=== PATIENT | female | born 1945 | race African-American/Black ===

== ENCOUNTER 2018-02-12 16:14 | Emergency (ER) | payer OTHER ==
[2018-02-12 16:25] VITALS: BP 152/57
[2018-02-12] MEDS ORDERED: TETRACAINE HCL 0.5% OPH SOLN 2 ML OU ONE (17:26)
--- NOTE | 2018-02-12 17:33 | ER Document Report ---
HPI - HPI Patient complains to provider of: Right eye redness Onset: Other - 2 days Onset/Duration: Gradual Quality of pain: Achy Pain Level: 4 Context: Patient presents complaining of right eye pain and swelling with redness. Patient denies any injury to her eye. Patient denies any change in her vision. Patient states that she got glasses 2 years ago and that she has never been able to see very well using those glasses. Patient states that she occasionally will have some matting to the right eye. Patient denies any use of contact lenses. Associated Symptoms: Other - Right eye redness swelling, pain Exacerbated by: Denies Relieved by: Denies Similar symptoms previously: No Recently seen / treated by doctor: No - ROS ROS below otherwise negative: Yes Systems Reviewed and Negative: Yes All other systems reviewed and negative - CONSTITUTIONAL Constitutional: DENIES: Fever - EENT EENT: REPORTS: Eye problems - GASTROINTESTINAL Gastrointestinal: DENIES: Nausea, Patient vomiting - REPRODUCTIVE Reproductive: DENIES: : - DERM Skin Color: Normal Skin Problems: None Past Medical History - General Information source: Patient - Social History Smoking Status: Never Smoker Chew tobacco use (# tins/day): No Frequency of alcohol use: None Drug Abuse: None Occupation: None Lives with: Alone Family History: Reviewed & Not Pertinent Patient has suicidal ideation: No Patient has homicidal ideation: No - Past Medical History Cardiac Medical History: Reports: Hx Coronary Artery Disease Denies: Hx Heart Attack, Hx Hypercholesterolemia, Hx Hypertension Endocrine Medical History: Reports: Hx Diabetes Mellitus Type 2 Renal/ Medical History: Denies: Hx Peritoneal Dialysis Malignancy Medical History: Reports: Hx Breast Cancer Past Surgical History: Reports: Hx Coronary Stent, Hx Gynecologic Surgery - Unsuccessful fallopian tuboplasty, Hx Mastectomy - Right mastectomy with axillary node dissection 29 years ago. - Immunizations Hx Diphtheria, Pertussis, Tetanus Vaccination: No Vertical Provider Document - CONSTITUTIONAL Agree With Documented VS: Yes Exam Limitations: No Limitations General Appearance: WD/WN, No Apparent Distress - INFECTION CONTROL TRAVEL OUTSIDE OF THE [place] IN LAST 30 DAYS: No - HEENT HEENT: Atraumatic, Normocephalic Notes: sclera of right eye injected, EOMI, PERLL - NECK Neck: Normal Inspection - RESPIRATORY Respiratory: No Respiratory Distress - MUSCULOSKELETAL/EXTREMETIES Musculoskeletal/Extremeties: MAEW - NEURO Level of Consciousness: Awake, Alert, Appropriate Motor/Sensory: No Motor Deficit - DERM Integumentary: Warm, Dry, No Rash Course - Re-evaluation Re-evalutation: 02/12/18 18:10 Patient states that she has never been able to see very well with her glasses from the day that she got her glasses 2 years ago. Patient encouraged to follow -up with guide visitor on Thursday for repeat eye exam as well as to follow-up that she will last seen in her corneal abrasion. Patient encouraged to return for any new or worsening symptoms over the weekend. - Vital Signs Vital signs: Temp Pulse Resp BP Pulse Ox 99.1 F 82 16 152/57 H 96 02/12/18 16:23 02/12/18 16:23 02/12/18 16:23 02/12/18 16:23 02/12/18 16:23 Procedures - Eye Procedure Right Fluorescein applied: Right Notes: 02/12/18 18:10 Patient with corneal abrasion to right eye with chalazion to right lower eye lid area. No foreign body, dendrite or corneal ulcer. Ocular pressure in the left eye 22, pressure to the right eye 18 with a 95% confidence interval Eyes picture: 1 - Corneal abrasion to right eye Discharge - Discharge Clinical Impression: Chalazion left lower eyelid Cornea abrasion Qualifiers: Encounter type: initial encounter Laterality: right Qualified Code(s): S05.01XA - Injury of conjunctiva and corneal abrasion without foreign body, right eye, initial encounter Condition: Stable Disposition: HOME, SELF-CARE Instructions: Chalazion ([facility]), Corneal Abrasion ([facility]), Eyedrop Use ([facility]) Additional Instructions: Return immediately for any new or worsening symptoms Followup with your primary care provider, call tomorrow to make a followup appointment Follow-up with guide visitor, call Thursday for an appointment Prescriptions: Polymyxin B Sulfate/Tmp [Polytrim Oph Soln 10 ml] 1 drop RT_EYE ASDIR #1 bottle Referrals: [facility] [Provider Group] - Follow up as needed OFFICE [facility] [Provider Group] - 02/15/18
== END 2018-02-12 18:23 | disposition home or self-care (01) ==
LOC: ER 16:14
DX: S05.01XA Injury of conjunctiva and corneal abrasion without foreign body, right eye, initial encounter (principal); H00.15 Chalazion left lower eyelid; X58.XXXA Exposure to other specified factors, initial encounter; I25.10 Atherosclerotic heart disease of native coronary artery without angina pectoris; E11.9 Type 2 diabetes mellitus without complications; Z85.3 Personal history of malignant neoplasm of breast
CPT/HCPCS: 99283

== ENCOUNTER 2018-06-21 14:31 | Emergency (ER) | payer OTHER ==
[2018-06-21] MEDS ORDERED: ACETAMINOPHEN 325 MG TABLET PO ONE (15:17)
--- NOTE | 2018-06-21 15:18 | RADIOLOGY REPORT (SQ) ---
EXAM DESCRIPTION: WRIST RIGHT 3 VIEWS; HAND RIGHT 3 VIEWS COMPLETED DATE/TIME: 06/21/2018 3:08 pm REASON FOR STUDY: pain injury COMPARISON: None. FINDINGS: Three views right wrist: NO ACUTE CARPAL FRACTURE OR MALALIGNMENT. Radial sided DJD, tri scaphe arthritis. Minimal ulnar plan as scratch at minimal ulnar minus variance with sclerosis and c ystic changes in the ulnar aspect of the lunate. 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 Three views right hand: Osteopenic. Spiral FRACTURES OF THE 4TH AND 5TH METACARPAL SHAFTS. No britt r intra-articular extension. Slight dorsal displacement at each of the fracture sites. Regional sof t tissue swelling. TECHNICAL DOCUMENTATION: JOB ID: [id number] Reading location - IP/workstation name: [email or web address]
--- NOTE | 2018-06-21 15:18 | RADIOLOGY REPORT (SQ) ---
EXAM DESCRIPTION: WRIST RIGHT 3 VIEWS; HAND RIGHT 3 VIEWS COMPLETED DATE/TIME: 06/21/2018 3:08 pm REASON FOR STUDY: pain injury COMPARISON: None. FINDINGS: Three views right wrist: NO ACUTE CARPAL FRACTURE OR MALALIGNMENT. Radial sided DJD, tri scaphe arthritis. Minimal ulnar plan as scratch at minimal ulnar minus variance with sclerosis and c ystic changes in the ulnar aspect of the lunate. 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 Three views right hand: Osteopenic. Spiral FRACTURES OF THE 4TH AND 5TH METACARPAL SHAFTS. No britt r intra-articular extension. Slight dorsal displacement at each of the fracture sites. Regional sof t tissue swelling. TECHNICAL DOCUMENTATION: JOB ID: [id number] Reading location - IP/workstation name: [email or web address]
--- NOTE | 2018-06-21 16:14 | ER Document Report ---
ED Hand/Wrist Injury - General Chief Complaint: Hand Injury Stated Complaint: FELL/RIGHT ARM AND HAND PAIN Time Seen by Provider: 06/21/18 14:50 Mode of Arrival: Ambulatory Information source: Patient Notes: 72-year-old female presents to ED for complaint of right hand pain. She states it has become very swollen and painful. She states she fell out of the bed on Thursday. She states that her hand is continued to swell and is now becoming more painful. Patient states she was able to come to the doctor told her family told her she had to come to the doctor. This is very difficult to move her wrist and fingers now. TRAVEL OUTSIDE OF THE [place] IN LAST 30 DAYS: No - HPI Injury to: Hand - Right, Wrist Onset: Other - Thursday Where: Home, Indoors Timing: Worse Quality of pain: Sharp, Throbbing Severity: Severe Pain Level: 5 Context: Fall - Related Data Allergies/Adverse Reactions: No Known Allergies Allergy (Verified 02/12/18 16:16) Past Medical History - General Information source: Patient - Social History Smoking Status: Never Smoker Cigarette use (# per day): No Chew tobacco use (# tins/day): No Smoking Education Provided: No Frequency of alcohol use: None Drug Abuse: None Lives with: Friend Family History: Reviewed & Not Pertinent Patient has suicidal ideation: No Patient has homicidal ideation: No - Past Medical History Cardiac Medical History: Reports: Hx Coronary Artery Disease, Hx Hypertension Pulmonary Medical History: Reports: None EENT Medical History: Reports: None Neurological Medical History: Reports: None Endocrine Medical History: Reports: Hx Diabetes Mellitus Type 2 Renal/ Medical History: Reports: None Malignancy Medical History: Reports: Hx Breast Cancer GI Medical History: Reports: None Musculoskeletal Medical History: Reports None Skin Medical History: Reports None Psychiatric Medical History: Reports: None Traumatic Medical History: Reports: None Infectious Medical History: Reports: None Past Surgical History: Reports: Hx Coronary Stent, Hx Gynecologic Surgery - Unsuccessful fallopian tuboplasty, Hx Mastectomy - RIGHT,RESTRICTED - Immunizations Hx Diphtheria, Pertussis, Tetanus Vaccination: No Review of Systems - Review of Systems Constitutional: No symptoms reported EENT: No symptoms reported Cardiovascular: No symptoms reported Respiratory: No symptoms reported Gastrointestinal: No symptoms reported Genitourinary: No symptoms reported Female Genitourinary: No symptoms reported Musculoskeletal: Other - Left hand pain and swelling Skin: No symptoms reported Hematologic/Lymphatic: No symptoms reported Neurological/Psychological: No symptoms reported -: Yes All other systems reviewed and negative Physical Exam - Vital signs Vitals: Temp Pulse Resp BP Pulse Ox 98.5 F 75 18 161/83 H 96 06/21/18 14:39 06/21/18 14:39 06/21/18 14:39 06/21/18 14:39 06/21/18 14:39 Interpretation: Normal - General General appearance: Appears well, Alert - HEENT Head: Normocephalic, Atraumatic Eyes: Normal Pupils: PERRL - Respiratory Respiratory status: No respiratory distress Chest status: Nontender Breath sounds: Normal Chest palpation: Normal - Cardiovascular Rhythm: Regular Heart sounds: Normal auscultation Murmur: No - Abdominal Inspection: Normal Distension: No distension Bowel sounds: Normal Tenderness: Nontender Organomegaly: No organomegaly - Back Back: Normal, Nontender - Extremities General upper extremity: Normal color, Normal ROM, Normal temperature General lower extremity: Normal inspection, Nontender, Normal color, Normal ROM , Normal temperature, Normal weight bearing. 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 Patient does have a fracture to the fourth and fifth metacarpal. Patient was placed in a splint discharged home to follow-up with orthopedics in the morning. Patient was given a prescription for narcotics. She states she would not take them unless she absolutely has to. - Vital Signs Vital signs: Temp Pulse Resp BP Pulse Ox 98.4 F 82 18 157/80 H 99 06/21/18 16:41 06/21/18 16:41 06/21/18 16:41 06/21/18 16:41 06/21/18 16:41 - Diagnostic Test Radiology reviewed: Image reviewed, Reports reviewed Procedures - Immobilization Left Hand Time completed: 16:30 Pre-Proc Neuro Vasc Exam: Normal Immobilizer type: Volar splint Performed by: PCT Post-Proc Neuro Vasc Exam: Normal Alignment checked and good: Yes Discharge - Discharge Clinical Impression: Fall Qualifiers: Encounter type: initial encounter Qualified Code(s): W19.XXXA - Unspecified fall, initial encounter Fracture of fourth metacarpal bone of right hand Qualifiers: Encounter type: initial encounter Fracture type: closed Metacarpal location: shaft Fracture alignment: displaced Qualified Code(s): S62.324A - Displaced fracture of shaft of fourth metacarpal bone, right hand, initial encounter for closed fracture Fracture of fifth metacarpal bone of right hand Qualifiers: Encounter type: initial encounter Fracture type: closed Metacarpal location: shaft Fracture alignment: displaced Qualified Code(s): S62.326A - Displaced fracture of shaft of fifth metacarpal bone, right hand, initial encounter for closed fracture Condition: Stable Disposition: HOME, SELF-CARE Instructions: Family Physicians / Practices Additional Instructions: Fractured Metacarpal You have broken a metacarpal bone in the hand. The fracture is usually caused by hitting the hand against a hard surface, but can also be caused by jamming a finger. At first the injury should be rested, elevated, and ice packed. The usual treatment is splinting for four to six weeks. For some patients, a cast is preferable. The physician will advise you. It's important to avoid any twisting or jamming of the fingers while the fracture is healing. Force on the fingers can make the fracture move. Usually , one or two fingers are included in the splint or cast. Sometimes fingers are taped instead -- in this case, extra caution to prevent a twisting of the fingers is necessary. Call the doctor or come back if swelling or pain become severe, if numbness develops, or if you suspect you may have disturbed the fracture. Splint Pending Casting Your injury can't be casted until the swelling has subsided. Therefore, a temporary splint has been placed to protect the injury. Full use of an injured area is not possible in a splint. You should follow the doctor's instructions concerning rest, ice, and elevation of the injury. Never do anything which causes pain under the splint. Keep the splint on ALL THE TIME until you return for casting. If there is unexpected severe pain, or numbness, discoloration, or swelling beyond the splint, you should return at once. ICE & ELEVATION: Apply ice packs frequently against the painful area. Many different schedules are recommended, such as "20 minutes on, 20 minutes off" or "one hour ice, two hours rest." If you need to work, you may need to go longer between ice treatments. You should plan to have the area ice packed AT LEAST one- fourth of the time. The ice should be applied over the wrap, tape, or splint, or over a layer of cloth -- not directly against the skin. Some ice bags have a built-in cloth and can be put directly on the skin. Your injured part should be elevated as much as possible over the next 48 hours. Try to keep the injury above the level of the heart. Avoid use of the injured area. Elevation and rest will decrease the swelling. USE OF EYLQ-JUK-LHLAFOV IBUPROFEN: Ibuprofen (Advil, Nuprin, Medipren, Motrin IB) is a medication for fever and pain control. In addition, it has anti- inflammatory effects which may be beneficial, especially in the treatment of injuries. It's best to take ibuprofen with food. Persons with ulcer disease or allergy to aspirin should notify their physician of this before taking ibuprofen. Ibuprofen can be given every four to six hours, for a total of four doses daily. Age Pain or fever dose Antiinflammatory dose 6-8 yr 200 mg (1 tab) 200 mg (1 tab) 9-11 yr 200 mg (1 tab) 200-400 mg (1-2 tab) 11-14 yr 200-400 mg (1-2 tab) 400 mg (2 tab) 15-adult 400 mg (2 tab) 600 mg (3 tab) ORAL NARCOTIC MEDICATION: You have been given a prescription for pain control. This medication is a narcotic. It's best taken with food, as nausea can result if taken on an empty stomach. Don't operate machinery or drive within six hours of taking this medication. Do not combine this medicine with alcohol, or with any medication which can cause sedation (such as cold tablets or sleeping pills) unless you get permission from the physician. Narcotics tend to cause constipation. If possible, drink plenty of fluids and eat a diet high in fiber and fruits. Please be aware that prescription narcotics also have the potential for abuse. People become addicted to these medications because of the general sense of wellbeing that they induce. This feeling along with a significant reduction in tension, anxiety, and aggression provides a stimulating seductive quality to these drugs. Once your pain is under control, we encourage you to discard your unused narcotics. FOLLOW-UP CARE: If you have been referred to a physician for follow-up care, call the physician s office for an appointment as you were instructed or within the next two days. If you experience worsening or a significant change in your symptoms, notify the physician immediately or return to the Emergency Department at any time for re-evaluation. Prescriptions: Hydrocodone/Acetaminophen [[place] 5-325 mg Tablet] 1 tab PO Q8HP PRN #14 tablet PRN Reason: Forms: Elevated Blood Pressure Referrals: TYESHA PLASENCIA [NO LOCAL MD] - Follow up as needed JOSE DAVID CRAIG DO [ACTIVE STAFF] - Follow up as needed
[2018-06-21 16:43] VITALS: BP 157/80
== END 2018-06-21 16:41 | disposition home or self-care (01) ==
LOC: ER 14:31
PROC: 2W3DX1Z Immobilization of Left Lower Arm using Splint (ICD-10-PCS; principal; 2018-06-21)
DX: S62.324A Displaced fracture of shaft of fourth metacarpal bone, right hand, initial encounter for closed fracture (principal); S62.326A Displaced fracture of shaft of fifth metacarpal bone, right hand, initial encounter for closed fracture; M79.601 Pain in right arm; M79.641 Pain in right hand; M79.89 Other specified soft tissue disorders; W06.XXXA Fall from bed, initial encounter; I25.10 Atherosclerotic heart disease of native coronary artery without angina pectoris; I10 Essential (primary) hypertension; E11.9 Type 2 diabetes mellitus without complications
CPT/HCPCS: 99283; 73130; 73110; 29125; A9270

== ENCOUNTER 2018-07-29 08:39 | Day surgery (SDC) | payer OTHER ==
[~2018-07-29 08:39] MED LIST: BESIFLOXACIN HCL 0.6% OPH SUSP 5 ML BOTTLE OD PRN; CYCLOPENTOLATE 0.2%/PHENYLEPHRINE 1% OPH SOLN 2 ML OD PRN; KETOROLAC TROMETHAMINE 0.45% 4 DROP/0.4 ML DROPERETTE OD PRN; TETRACAINE HCL 0.5% OPH SOLN 4 ML OD PRN; TROPICAMIDE 1% OPH SOLN 3 ML OD PRN
[2018-07-29] MEDS ORDERED: LIDOCAINE 1%/PHENYLEPHRINE 1.5% 1 ML VIAL ONE (09:13)
[2018-07-29] MEDS ORDERED: EPINEPHRINE INJ/PF 1 MG/1 ML AMPULE ONE (09:13)
[2018-07-29] MEDS ORDERED: CHONDR SU A NA/HYALUR INTRAOC KIT (SURGICARE) ONE (09:13)
[2018-07-29] MEDS: TETRACAINE HCL 0.5% OPH SOLN 4 ML OD PRN ×3 (09:52→10:59)
[2018-07-29] MEDS: CYCLOPENTOLATE 0.2%/PHENYLEPHRINE 1% OPH SOLN 2 ML OD PRN ×3 (09:52→10:14)
[2018-07-29] MEDS: BESIFLOXACIN HCL 0.6% OPH SUSP 5 ML BOTTLE OD PRN ×2 (09:52→10:05)
[2018-07-29] MEDS: TROPICAMIDE 1% OPH SOLN 3 ML OD PRN ×3 (09:52→10:14)
[2018-07-29] MEDS ORDERED: MIDAZOLAM 2 MG/2 ML INJ ONE ×2 (10:06→10:54)
[2018-07-29] MEDS ORDERED: FENTANYL CITRATE INJ/PF 100 MCG/2 ML AMPUL ONE (10:07)
[2018-07-29] MEDS ORDERED: LIDOCAINE 1%/PHENYLEPHRINE 1.5% 1 ML VIAL IO ONE (10:34)
[2018-07-29] MEDS ORDERED: TRYPAN BLUE 0.06 % OPH SOLN 0.5 ML DISP.SYRIN ONE (10:39)
[2018-07-29] MEDS ORDERED: CHONDR SU A NA/HYALUR SOD 0.5 ML DISP.SYRIN ONE ×3 (10:43→11:07)
[2018-07-29] MEDS ORDERED: TRYPAN BLUE 0.06 % OPH SOLN 0.5 ML DISP.SYRIN IO ONE (11:01)
[2018-07-29] MEDS ORDERED: ACETYLCHOLINE CHLORIDE 20 MG/2 ML KIT IO ONE (11:25)
[2018-07-29] MEDS ORDERED: ACETYLCHOLINE CHLORIDE 20 MG/2 ML KIT ONE (11:57)
--- NOTE | 2018-07-29 15:51 | [facility] OPERATIVE REPORT E ---
[facility] Operative Report NAME: CHARLEE CHING AGE: 73Y DATE OF SURGERY: 07/29/2018 ROOM: PREOPERATIVE DIAGNOSES: 1. CATARACT RIGHT EYE 2. PUPIL MIOSIS, RIGHT EYE. POSTOPERATIVE DIAGNOSES: 1. CATARACT RIGHT EYE. 2. PUPIL MIOSIS, RIGHT EYE. OPERATION: Complex cataract extraction with the use of a Trypan blue dye and Malyugin ring due to pupillary miosis and insertion of a Sulcus IOL. SURGEON: DMITRIY GARCIA M.D. ANESTHESIA: TOPICAL. COMPLICATIONS: Anterior capsule extension. ESTIMATED BLOOD LOSS: None. PROCEDURE: After obtaining appropriate consent, the patient right eye was prepped and draped in sterile fashion as well as the surgeon in a sterile manner, and the cataract surgery was started. First, the paracentesis blade was used to make a small side-port incision. Viscoelastic was used to inflate the anterior chamber. Next a 2.4 mm incision was made using a 2.4 mm keratome. At this point, the pupil was less than 4.5 mm and was very miotic. In order to complete the capsulorhexis, a Malyugin ring was inserted and found to be in excellent position to help stabilize the pupil. Following this, a continuous capsulorhexis was made using a cystitome and Utrata forceps. Following this, hydrodissection was carried out to make the lens fully loose and mobile, and it was rotated 90 degrees. Following this, a divide and conquer technique was used to phacoemulsify the lens with a CDE of approximately 16.27. The remaining cortex was removed with irrigation/aspiration. Provisc was instilled into the capsular bag to inflate the bag. The remainingviscoelastic material was removed with i rrigation/aspiration. Prior to making the capsulorhexis Malyugin ring was inserted due to poor pupillary dilation. The anterior capsule was then stained with Trypan blue dye due to a mature cataract and no visualization of the anterior capsule. At one point during rhexis the anterior rhexis had extended peripherally for approximately 3 clock hours. I was unable to rescue this, therefore a can director of financial reporting technique was used for approximately 3 clock hours nasally. Following this, the lens was divided in a normal technique. There was no finding of a posterior capsule tear at any point. There was a good anterior capsule rim. Therefore a sulcus lens was brought to the field and a 27.0 diopter MA60AC lens was injected once the incision was enlarged into the sulcus on anterior capsule and was found to be well-centered. Following this, the miochol was used and inserted into anterior chamber to shrink the iris and the Malyugin ring was removed and a simple interrupted 10-0 nylon suture was used to close the clear corneal incision temporarily. The eye was found to be water tight. A drop of Besivance and a drop of Cosopt was instilled into the eye and a clear shield is placed over the eye and the patient returned to the postoperative recovery in stable condition. DICTATING PHYSICIAN: DMITRIY GARCIA M.D. [id number] PHY#: [id number] ID: [id number] JOB#: [id number] ACCT: [id number] cc:DMITRIY GARCIA M.D. > MTDD
--- NOTE | 2018-07-29 15:56 | [facility] DISCHARGE SUMMARY E ---
[facility] Discharge Summary NAME: CHARLEE CHING AGE: 73Y ADMITTED: 07/29/2018 DISCHARGED: 07/29/2018 DIAGNOSES: 1. Mature Cataract, right eye. 2. Pupil miosis of the right eye, approximately 4-mm. SUMMARY: This is a 73-year-old female who underwent cataract extraction, complex, of the right eye with use of Trypan blue dye and a Malyugin ring due to poor pupillary dilation. The patient did have anterior capsule extension of the rhexis, therefore a Sulcus lens was placed. At no point was there vitreous in the anterior chamber and the posterior capsule was still intact. Patient underwent surgery because they were unable to read road signs and difficulty with words on the television. DISCHARGE INSTRUCTIONS: They should be on a regular diet, no bending at the waist, and no heavy lifting. The patient should use Besivance, Ilevro, and Durezol at 3 p.m. and 8 p.m. I will see them for same day postoperative. Keep the clear Rigid shield on until I see them. DICTATING PHYSICIAN: DMITRIY GARCIA M.D. [id number] PHY#: [id number] ID: [id number] JOB#: [id number] ACCT: [id number] cc:DMITRIY GARCIA M.D. > MTDD
== END 2018-07-29 12:45 | disposition home or self-care (01) ==
LOC: SC 08:39
PROVIDERS: ATTEND Internal Medicine
DX: H25.89 Other age-related cataract (principal); H57.03 Miosis; H40.033 Anatomical narrow angle, bilateral; E11.9 Type 2 diabetes mellitus without complications; I25.10 Atherosclerotic heart disease of native coronary artery without angina pectoris; Z79.4 Long term (current) use of insulin; Z79.82 Long term (current) use of aspirin; Z79.84 Long term (current) use of oral hypoglycemic drugs; Z85.3 Personal history of malignant neoplasm of breast
CPT/HCPCS: 66982; 82962; V2632; J3490 ×5; J2250; A9270; J0171; J3010; J2370; 142

== ENCOUNTER 2018-08-17 09:56 | Day surgery (SDC) | payer OTHER ==
[~2018-08-17 09:56] MED LIST changes: -BESIFLOXACIN HCL 0.6% OPH SUSP 5 ML BOTTLE OD PRN; -CYCLOPENTOLATE 0.2%/PHENYLEPHRINE 1% OPH SOLN 2 ML OD PRN; -KETOROLAC TROMETHAMINE 0.45% 4 DROP/0.4 ML DROPERETTE OD PRN; +KETOROLAC TROMETHAMINE 0.45% 4 DROP/0.4 ML DROPERETTE OS PRN; +MIDAZOLAM 2 MG/2 ML INJ ONE; -TETRACAINE HCL 0.5% OPH SOLN 4 ML OD PRN; -TROPICAMIDE 1% OPH SOLN 3 ML OD PRN
[2018-08-17] MEDS: TROPICAMIDE 1% OPH SOLN 3 ML OS PRN ×3 (10:38→10:58)
[2018-08-17] MEDS: BESIFLOXACIN HCL 0.6% OPH SUSP 5 ML BOTTLE OS PRN ×4 (10:38→12:05)
[2018-08-17] MEDS: CYCLOPENTOLATE 0.2%/PHENYLEPHRINE 1% OPH SOLN 2 ML OS PRN ×3 (10:38→10:58)
[2018-08-17] MEDS: TETRACAINE HCL 0.5% OPH SOLN 4 ML OS PRN ×4 (10:39→11:38)
[2018-08-17] MEDS ORDERED: MIDAZOLAM 2 MG/2 ML INJ ONE (10:58)
[2018-08-17] MEDS ORDERED: FENTANYL CITRATE INJ/PF 100 MCG/2 ML AMPUL ONE (10:59)
[2018-08-17] MEDS ORDERED: TRYPAN BLUE 0.06 % OPH SOLN 0.5 ML DISP.SYRIN ONE (11:02)
[2018-08-17] MEDS: EPINEPHRINE INJ/PF 1 MG/1 ML AMPULE ONE ×2 (11:48)
[2018-08-17] MEDS: CHONDR SU A NA/HYALUR INTRAOC KIT (SURGICARE) ONE ×2 (11:48)
[2018-08-17] MEDS: LIDOCAINE 1%/PHENYLEPHRINE 1.5% 1 ML VIAL ONE ×2 (11:48)
--- NOTE | 2018-08-17 14:31 | [facility] OPERATIVE REPORT E ---
[facility] Operative Report NAME: CHARLEE CHING AGE: 73Y DATE OF SURGERY: 08/17/2018 ROOM: PREOPERATIVE DIAGNOSIS: OTHER AGE-RELATED CATARACT, LEFT EYE. POSTOPERATIVE DIAGNOSIS: OTHER AGE-RELATED CATARACT, LEFT EYE. OPERATION: Complex cataract extraction with use of Trypan Blue dye due to poor visualization of the anterior capsule. SURGEON: DMITRIY GARCIA M.D. ANESTHESIA: Topical. PROCEDURE: After obtaining appropriate consent, the patient's left eye was prepped and draped in sterile fashion as well as the surgeon in a sterile manner and cataract surgery was started. First a paracentesis blade was used to make a side-port incision. Viscoelastic was used to inflate the anterior chamber. Next a 2.4 mm incision was made with a 2.4 mm blade, clear corneal temporally. A continuous capsulorrhexis was made using a cystotome and Utrata forceps. Following this hydrodissection was carried out to make the lens fully loose and mobile and it was rotated 90 degrees. Following this, a vzmwjh-txc-cfygiqw technique was used to phacoemulsify the lens with a CDE of 11.56. The remaining cortex was removed with irrigation/aspiration. Provisc was instilled into the capsular bag to inflate the bag. A SN60WF, 28.5 diopter lens was placed. The remaining viscoelastic material was removed with irrigation/aspiration. Following this, the incision was found to be watertight. Besivance was instilled into the eye and a protective shield was placed over the eye. The patient returned to the postoperative recovery in stable condition. Prior to making the capsulorrhexis Trypan Blue dye was used to stain the anterior capsule due to very dense cortical spoking making it difficult to see the anterior capsule. DICTATING PHYSICIAN: DMITRIY GARCIA M.D. [id number] PHY#: [id number] ID: [id number] JOB#: [id number] ACCT: [id number] cc:DMITRIY GARCIA M.D. >
--- NOTE | 2018-08-17 14:36 | [facility] DISCHARGE SUMMARY E ---
[facility] Discharge Summary NAME: CHARLEE CHING AGE: 73Y ADMITTED: 08/17/2018 DISCHARGED: 08/17/2018 DIAGNOSIS: OTHER AGE-RELATED CATARACT OF THE LEFT EYE. SUMMARY: This is a 73-year-old female who underwent complex cataract extraction with use of Trypan Blue dye due to poor visualization of the anterior capsule. They are to be on a regular diet, no bending at the waist, and no heavy lifting. They underwent surgery because they were having blurred vision for distance and watching TV. They should use their Besivance, Ketorolac, and Pred Forte at 3 p.m. and 8 p.m. and sleep with a rigid shield. I will see them for their 1-day postoperative tomorrow. DICTATING PHYSICIAN: DMITRIY GARCIA M.D. [id number] PHY#: [id number] ID: [id number] JOB#: [id number] ACCT: [id number] cc:DMITRIY GARCIA M.D. >
== END 2018-08-17 13:01 | disposition home or self-care (01) ==
LOC: SC 09:56
PROVIDERS: ATTEND Internal Medicine
DX: H25.89 Other age-related cataract (principal); H57.03 Miosis; Z96.1 Presence of intraocular lens; E11.9 Type 2 diabetes mellitus without complications; Z79.84 Long term (current) use of oral hypoglycemic drugs; Z79.82 Long term (current) use of aspirin; Z79.4 Long term (current) use of insulin
CPT/HCPCS: 66982; 82962; V2632; J2250; J3490 ×3; A9270; J0171; J3010; J2370

== ENCOUNTER 2018-11-16 10:38 | Emergency (ER) | payer OTHER ==
[2018-11-16 10:46] VITALS: BP 155/56
--- NOTE | 2018-11-16 11:18 | ER Document Report ---
HPI - HPI Time Seen by Provider: 11/16/18 11:06 Pain Level: 3 Notes: Patient is a 73-year-old female with a history of type 2 diabetes who presents to the emergency department complaining of a bump on her right lower right eyelid that has been there for a couple days. Patient states that the bump is sore. She has not had any other changes in her vision or redness in her eyes. She is eating and drinking without difficulty. Denies drug allergies. She is urinating normally. No other concerns or complaints. No foreign body sensation. She does not wear contact lenses. Denies any headache, fever, head injury, neck pain, changes in vision/speech/mentation/hearing, URI, sore throat, chest pain, palpitations, syncope, cough, shortness of breath, wheeze, dyspnea, abdominal pain, nausea/vomiting/diarrhea, urinary retention, dysuria, hematuria, or rash. - ROS Systems Reviewed and Negative: Yes All other systems reviewed and negative - CONSTITUTIONAL Constitutional: DENIES: Fever, Chills - EENT EENT: REPORTS: Eye problems - REPRODUCTIVE Reproductive: DENIES: : Past Medical History - Social History Smoking Status: Never Smoker Family History: Reviewed & Not Pertinent Patient has suicidal ideation: No Patient has homicidal ideation: No - Past Medical History Cardiac Medical History: Reports: Hx Coronary Artery Disease Denies: Hx Heart Attack, Hx Hypercholesterolemia, Hx Hypertension Pulmonary Medical History: Denies: Hx Asthma Neurological Medical History: Denies: Hx Cerebrovascular Accident, Hx Seizures Endocrine Medical History: Reports: Hx Diabetes Mellitus Type 2 Renal/ Medical History: Denies: Hx Peritoneal Dialysis Malignancy Medical History: Reports: Hx Breast Cancer GI Medical History: Denies: Hx Hepatitis, Hx Hiatal Hernia, Hx Ulcer Infectious Medical History: Denies: Hx Hepatitis Past Surgical History: Reports: Hx Coronary Stent, Hx Gynecologic Surgery - Unsuccessful fallopian tuboplasty, Hx Mastectomy - RIGHT,RESTRICTED. Denies: Hx Hysterectomy, Hx Open Heart Surgery, Hx Pacemaker - Immunizations Hx Diphtheria, Pertussis, Tetanus Vaccination: No Vertical Provider Document - CONSTITUTIONAL Agree With Documented VS: Yes Notes: PHYSICAL EXAMINATION: GENERAL: Well-appearing, well-nourished and in no acute distress. A&Ox4 HEAD: Atraumatic, normocephalic. EYES: Pupils equal round and reactive to light, extraocular movements intact, sclera anicteric, conjunctiva normal w/o discharge or matting. Non-tender to palp of the globe and eye itself. No surrounding erythema or swelling noted. Visual acuity 20/30 b/l and in each eye (performed by myself at bedside with my own eye chart). + stye lower eyelid. ENT: EAC clear b/l. TM's intact b/l without erythema, fluid, or perforation. Nares patent and without discharge. oropharynx clear without exudates. No tonsilar hypertrophy or erythema. Moist mucous membranes. No sinus tenderness. Uvula midline. No palatine shift. No airway compromise. No drooling or hoarseness. NECK: Normal range of motion, supple without lymphadenopathy. No rigidity/meningismus. LUNGS: Breath sounds clear to auscultation bilaterally and equal. No wheezes rales or rhonchi. HEART: Regular rate and rhythm without murmurs, rubs, gallops. Musculoskeletal: Ext b/l: FROM to passive/active. Strength 5+/5. Extremities: No cyanosis, clubbing, or edema b/l. Peripheral pulses 2+. Capillary refill less than 3 seconds. NEUROLOGICAL: Cranial nerves grossly intact. Normal speech, normal gait. Normal sensory, motor exams PSYCH: Normal mood, normal affect. SKIN: Warm, Dry, normal turgor, no rashes or lesions noted. - INFECTION CONTROL TRAVEL OUTSIDE OF THE [place] IN LAST 30 DAYS: No Course - Re-evaluation Re-evalutation: 11/16/18 11:16 Patient is an afebrile, well-hydrated, 73-year-old female who presents emergency department with a stye to the right lower eyelid. Vitals are acceptable without significant tachycardia, tachypnea or hypoxia. PE is otherwise unremarkable. No labs or imaging warranted. Patient is nontoxic-appearing and is swallowing p.o. without difficulty. Low suspicion for any retained corneal or lid foreign body, deep space infection including orbital cellulitis/abscess, acute glaucoma, penetrating globe injury, retinal detachment, meningitis, sepsis, fracture, compartment syndrome. I will send home with a prescription for erythromycin ointment to use as directed. Conservative measures otherwise for symptoms with proper handwashing. Recheck with your PCM in 3-5 days. Schedule a f/u with Ophthalmology. Return to the ED with any worsening/concerning symptoms otherwise as reviewed in discharge. Patient is in agreement. - Vital Signs Vital signs: Temp Pulse Resp BP Pulse Ox 97.9 F 78 20 155/56 H 100 11/16/18 10:44 11/16/18 10:44 11/16/18 10:44 11/16/18 10:44 11/16/18 10:44 Discharge - Discharge Clinical Impression: Cristiane Qualifiers: Laterality: right Eyelid: lower Qualified Code(s): H00.012 - Hordeolum externum right lower eyelid Condition: Stable Disposition: HOME, SELF-CARE Instructions: [place] ([facility]), Family Physicians / Practices Additional Instructions: Keep eyes clean Avoid scratching/touching eyes Wash hands regularly Use eye medicine as directed Maintain adequate fluid intake tylenol/ibuprofen as needed over the counter cold medication as needed for symptoms F/u: with your PCM in 2-3 days for a recheck Consider consult with Ophthalmology for ongoing/worsening symptoms Return to the ED with any worsening symptoms and/or development of fever, headache, changes in vision, eye pain, worsening eye redness, redness around the eyes, purulent discharge, sore throat, facial swelling, neck pain/stiffness, chest pain, palpitations, syncope, shortness of breath, trouble breathing, abdominal pain, n/v/d, blood in stool/urine, dysuria, or other worsening symptoms that are concerning to you. Prescriptions: Erythromycin Base [Erythromycin Oph 1 gm Oint Ud] 1 applic OP QID #1 tube Forms: Elevated Blood Pressure Referrals: JARED CHAIDEZ PA-C [Primary Care Provider] - Follow up as needed DMITRIY GARCIA MD [ACTIVE STAFF] - Follow up as needed
== END 2018-11-16 11:23 | disposition home or self-care (01) ==
LOC: ER 10:38
DX: H00.012 Hordeolum externum right lower eyelid (principal); E11.9 Type 2 diabetes mellitus without complications; Z85.3 Personal history of malignant neoplasm of breast
CPT/HCPCS: 99283

== ENCOUNTER 2019-01-27 18:43 | Emergency (ER) | payer OTHER ==
--- NOTE | 2019-01-27 19:20 | ER Document Report ---
ED Medical Screen (RME) - General Chief Complaint: Abnormal Lab Results Stated Complaint: FOOT/LEG PAIN Time Seen by Provider: 01/27/19 19:07 Primary Care Provider: JARED CHAIDEZ PA-C [Primary Care Provider] - Follow up as needed TRAVEL OUTSIDE OF THE [place] IN LAST 30 DAYS: No - HPI Notes: 01/27/19 19:17 Is seen as a start of my evaluation, patient was summoned for her room and was taken. I was able to clarify some information from her. Patient states that she had her ultrasound performed today at [facility] and was called by her doctor's office to come here for evaluation for arterial occlusions which are listed in my referral form. Patient states that she has been having pain in that leg/foot for a week and a half. This is the first time patient has seen a provider in years. Denies DONOVAN, fever, neck pain, URI, CP, SOB, Abd pain, or rash. I have treated and performed a rapid initial assessment of this patient. A comprehensive ED assessment and evaluation of the patient, analysis of test results and completion of medical decision making process will be conducted by additional ED providers. PHYSICAL EXAMINATION: GENERAL: Well-appearing, well-nourished and in no acute distress. A&Ox4. Answers questions appropriately. Extremities: No cyanosis, clubbing, or edema b/l. Pulses diminished (did not have thorough time to investigate--doppler instructed to nurse for pulses in her room). Rt foot is minimally colder than the left to palp. PSYCH: Normal mood, normal affect. - Related Data Allergies/Adverse Reactions: No Known Allergies Allergy (Verified 11/16/18 10:39) Past Medical History - Past Medical History Cardiac Medical History: Reports: Hx Coronary Artery Disease Denies: Hx Heart Attack, Hx Hypercholesterolemia, Hx Hypertension Pulmonary Medical History: Denies: Hx Asthma Neurological Medical History: Denies: Hx Cerebrovascular Accident, Hx Seizures Endocrine Medical History: Reports: Hx Diabetes Mellitus Type 2 Renal/ Medical History: Denies: Hx Peritoneal Dialysis Malignancy Medical History: Reports: Hx Breast Cancer GI Medical History: Denies: Hx Hepatitis, Hx Hiatal Hernia, Hx Ulcer Infectious Medical History: Denies: Hx Hepatitis Past Surgical History: Reports: Hx Coronary Stent, Hx Gynecologic Surgery - Unsuccessful fallopian tuboplasty, Hx Mastectomy - RIGHT,RESTRICTED. Denies: Hx Hysterectomy, Hx Open Heart Surgery, Hx Pacemaker - Immunizations Hx Diphtheria, Pertussis, Tetanus Vaccination: No Physical Exam - Vital signs Vitals: Temp Pulse Resp BP Pulse Ox 97.7 F 67 16 156/55 H 97 01/27/19 19:00 01/27/19 19:00 01/27/19 19:00 01/27/19 19:00 01/27/19 19:00 Course - Vital Signs Vital signs: Temp Pulse Resp BP Pulse Ox 97.7 F 67 16 156/55 H 97 01/27/19 19:00 01/27/19 19:00 01/27/19 19:00 01/27/19 19:00 01/27/19 19:00 Doctor's Discharge - Discharge Referrals: JARED CHAIDEZ PA-C [Primary Care Provider] - Follow up as needed
[2019-01-27 20:21] LABS: ABSOLUTE LYMPHOCYTES (AUTO) 2.4 10^3/uL (0.5-4.7); ABSOLUTE MONOCYTES (AUTO) 0.5 10^3/uL (0.1-1.4); ABSOLUTE NEUT (AUTO) 3.4 10^3/uL (1.7-8.2); BASOPHILS % (AUTO) 0.5 % (0-2); HEMOGLOBIN 13.6 g/dL (12.0-15.5); LYMPHOCYTES % (AUTO) 37.4 % (13-45); MEAN CORPUSCULAR HEMOGLOBIN 28.7 pg (27.0-33.4); MEAN CORPUSCULAR HGB CONC 34.9 g/dL (32.0-36.0); MEAN CORPUSCULAR VOLUME 82 fl (80-97); MONOCYTES % (AUTO) 8.2 % (3-13); PLATELET COUNT 183 10^3/uL (150-450); RED BLOOD COUNT 4.74 10^6/uL (3.72-5.28); RED CELL DISTRIBUTION WIDTH 13.6 % (11.5-14.0); SEGMENTED NEUTROPHILS % (AUTO) 53.9 % (42-78); TOTAL CELLS COUNTED % (AUTO) 100 %; WHITE BLOOD COUNT 6.3 10^3/uL (4.0-10.5)
[2019-01-27 20:42] LABS: ALANINE AMINOTRANSFERASE 27 U/L (9-52); ALBUMIN 3.9 g/dL (3.5-5.0); ALKALINE PHOSPHATASE 102 U/L (38-126); ANION GAP 8 (5-19); ASPARTATE AMINO TRANSFERASE 15 U/L (14-36); BILIRUBIN,DIRECT 0.2 mg/dL (0.0-0.4); BILIRUBIN,TOTAL 0.4 mg/dL (0.2-1.3); BLOOD UREA NITROGEN 13 mg/dL (7-20); CALCIUM 10.4 mg/dL (8.4-10.2); CARBON DIOXIDE 30 mmol/L (22-30); CHLORIDE 100 mmol/L (98-107); GLUCOSE 365 mg/dL (75-110); POTASSIUM 4.4 mmol/L (3.6-5.0); SODIUM 137.5 mmol/L (137-145); TOTAL PROTEIN 6.7 g/dL (6.3-8.2)
[2019-01-27 20:46] LABS: INTERNATIONAL RATION (INR) 0.92; PROTHROMBIN TIME 12.8 SEC (11.4-15.4)
[2019-01-27 20:47] LABS: PARTIAL THROMBOPLASTIN TIME 25.8 SEC (23.5-35.8)
[2019-01-27] MEDS ORDERED: HEPARIN SODIUM,PORCINE/D5W 25,000 UNIT/250 ML RTUINJ IV PRN (21:50)
[2019-01-27] MEDS ORDERED: HEPARIN SOD (PORCINE) 1,000 UNIT/ML 10 ML VIAL IV ONE (21:50)
[2019-01-27] MEDS ORDERED: GLUCAGON,HUMAN RECOMB 1 MG INJ IM PRN (21:56)
[2019-01-27] MEDS ORDERED: DEXTROSE 40% GEL 15 GM TUBE PO PRN ×2 (21:56)
[2019-01-27] MEDS ORDERED: DEXTROSE 50%-WATER 25 GM/50 ML DISP.SYRIN IV PRN ×2 (21:56)
--- NOTE | 2019-01-27 21:56 | ER Document Report ---
ED General - General Chief Complaint: Abnormal Lab Results Stated Complaint: FOOT/LEG PAIN Time Seen by Provider: 01/27/19 19:07 Primary Care Provider: JARED CHAIDEZ PA-C [NO LOCAL MD] - Follow up as needed Notes: Patient is a 73-year-old female with a past medical history of hypertension, hyperlipidemia, insulin-dependent diabetes although has been off of her insulin for "several years" who presents due to concerns of increasing pain to her right foot over the last 10 days. Patient states that she saw her primary doctor last week, and ultrasound of her leg was ordered for this week and was done today. She states that she was contacted by her primary care doctor's office shortly before presenting to the emergency department apparently being told that it showed she did not have blood flow to her foot and that she needed to come to the hospital immediately. The patient states that the pain started gradually and has gotten dramatically worse particular in the last 24 hours. She describes as a constant, burning, throbbing, severe pain to the entirety of the right foot. Walking or touching the area worsens the pain. Nothing improves the pain. Denies any history of similar symptoms in the past. Has no known history of peripheral vascular disease but does report a known history of coronary artery disease status post stenting. She denies fever or constitutional symptoms. No spreading redness. TRAVEL OUTSIDE OF THE [place] IN LAST 30 DAYS: No - Related Data Allergies/Adverse Reactions: No Known Allergies Allergy (Verified 11/16/18 10:39) Past Medical History - General Information source: Patient - Social History Smoking Status: Never Smoker Chew tobacco use (# tins/day): No Frequency of alcohol use: None Drug Abuse: None Lives with: Alone Family History: Reviewed & Not Pertinent Patient has suicidal ideation: No Patient has homicidal ideation: No - Past Medical History Cardiac Medical History: Reports: Hx Coronary Artery Disease Denies: Hx Heart Attack, Hx Hypercholesterolemia, Hx Hypertension Pulmonary Medical History: Denies: Hx Asthma Neurological Medical History: Denies: Hx Cerebrovascular Accident, Hx Seizures Endocrine Medical History: Reports: Hx Diabetes Mellitus Type 2 Renal/ Medical History: Denies: Hx Peritoneal Dialysis Malignancy Medical History: Reports: Hx Breast Cancer GI Medical History: Denies: Hx Hepatitis, Hx Hiatal Hernia, Hx Ulcer Infectious Medical History: Denies: Hx Hepatitis Past Surgical History: Reports: Hx Coronary Stent, Hx Gynecologic Surgery - Uns uccessful fallopian tuboplasty, Hx Mastectomy - RIGHT,RESTRICTED. Denies: Hx Hysterectomy, Hx Open Heart Surgery, Hx Pacemaker - Immunizations Hx Diphtheria, Pertussis, Tetanus Vaccination: No Review of Systems - Review of Systems Notes: Constitutional: Negative for fever. HENT: Negative for sore throat. Eyes: Negative for visual changes. Cardiovascular: Negative for chest pain. Positive for discoloration of the right foot, lack of pulse to the right foot Respiratory: Negative for shortness of breath. Gastrointestinal: Negative for abdominal pain, vomiting or diarrhea. Genitourinary: Negative for dysuria. Musculoskeletal: Positive for right foot pain Skin: Negative for rash. Neurological: Negative for headaches, weakness or numbness. 10 point ROS negative except as marked above and in HPI. Physical Exam - Vital signs Vitals: Temp Pulse Resp BP Pulse Ox 97.7 F 67 16 156/55 H 97 01/27/19 19:00 01/27/19 19:00 01/27/19 19:00 01/27/19 19:00 01/27/19 19:00 Interpretation: Hypertensive Notes: PHYSICAL EXAMINATION: GENERAL: Appears moderately uncomfortable but in no acute distress HEAD: Atraumatic, normocephalic. EYES: Pupils equal round and reactive to light, extraocular movements intact, sclera anicteric, conjunctiva are normal. ENT: nares patent, oropharynx clear without exudates. Moist mucous membranes. NECK: Normal range of motion, supple without lymphadenopathy LUNGS: Breath sounds clear to auscultation bilaterally and equal. No wheezes rales or rhonchi. HEART: Regular rate and rhythm without murmurs, 2+ DP pulse on left, absent on right. The right foot is extremely cool to touch, absent capillary refill in al l digits of the right foot. Capillary refill within acceptable limits of the left foot. Patient has 2+ femoral pulses bilaterally, palpable popliteal pulses bilaterally. ABDOMEN: Soft, nontender, normoactive bowel sounds. No guarding, no rebound. No masses appreciated. EXTREMITIES: Patient is able to dorsi and plantar flex both ankles bilaterally but with some pain on the right. No notable edema. NEUROLOGICAL: No focal neurological deficits. Moves all extremities spontaneously and on command. PSYCH: Normal mood, normal affect. SKIN: Warm, Dry, normal turgor, discoloration, darkening of the skin over the dorsum of the toes of the right foot Course - Re-evaluation Re-evalutation: 01/27/19 21:40 Patient presents with what appears to be an ischemic right foot. She has no dopplerable DP pulse, foot is cool, pale and the capillary beds of the nails. She is exquisitely tender to even light palpation of anywhere on the foot. Visibly darkened soft tissues relative to the left. Patient states that she has been having progressively worse pain over the past 10 days, had an arterial Doppler at [facility] today, was informed that she needed to come to the emergency department. Patient will immediately be started on a heparin infusion after bolus. I will immediately began attempting to arrange for transfer of this patient is I am concerned about any further delays resulting in ongoing ischemia to her tissues. Labs do note hyperglycemia 01/27/19 22:46 I contacted Baljit in [facility]. [facility] does not have any beds for vascular patients and [facility] so me will be greater than 48 hours. I will contact [facility] to see if they can facilitate more rapid transfer as I do not believe it would be safe for the patient to stay here for an extended period of time with an ischemic foot 01/27/19 23:[address] [facility] and they likewise have an extended weight almost all the facilities except the [facility] facility. There are determining whether or not they are able to take these patients to that facility if they have vascular support. [facility], [facility], [facility], and do none of which are able to accept the patient at this time although I am waiting to hear back about an ancillary hospital affiliated with [facility]. 01/27/19 23:17 I did call [facility] and they likewise stated there would be a weight of greater than 24 hours. I am contacting [facility] [place] an alternative option. If they do not have ability to accept this patient I am effectively out of options for a rapid transfer. 01/28/19 01:00 I have continued to be on the phone back and forth with [facility] on 4 separate occasions. I did speak to the clinical manager student services who is trying to resolve the issue. If [facility] likewise is unable to care for this patient I will contact [facility] and [facility] again and have these patients placed on wait list with emphasis that they need to be seen as quickly as possible and that further delays in care will result in worse outcomes. I continue to keep the patient updated on current status. 01/28/19 02:28 I was able to get the patient except by Dr. Golden at [facility]. They working on making a bed for the patient. 01/28/19 04:05 I discussed this case with Dr. Harrington who will monitor the patient until the morning doctor comes on as transfer remains pending - Vital Signs Vital signs: Temp Pulse Resp BP Pulse Ox 98.4 F 67 20 144/57 H 97 01/27/19 23:07 01/27/19 19:00 01/28/19 01:01 01/28/19 01:01 01/28/19 01:01 - Laboratory Result Diagrams: 01/27/19 20:05 01/27/19 20:05 Laboratory results interpreted by me: 01/27/19 01/27/19 01/27/19 20:05 22:42 23:38 Glucose 365 H POC Glucose 270 H Calcium 10.4 H Urine Glucose (UA) >=500 H 01/28/19 00:52 Glucose POC Glucose 120 H Calcium Urine Glucose (UA) - Diagnostic Test Radiology reviewed: Reports reviewed Critical Care Note - Critical Care Note Total time excluding time spent on procedures (mins): 40 Comments: Critical care time spent obtaining history from patient or surrogate, discussions with consultants, development of treatment plan with patient or surrogate, evaluation of patient's response to treatment, examination of patient, ordering and performing treatments and interventions, ordering and review of laboratory studies, re-evaluation of patient's condition, ordering and review of radiographic studies and review of old charts Discharge - Discharge Clinical Impression: Ischemic pain of right foot, Arterial insufficiency of lower extremity, Ischemia of right lower extremity Condition: Fair Disposition: [facility] Referrals: JARED CHAIDEZ PA-C [NO LOCAL MD] - Follow up as needed
[2019-01-27] MEDS ORDERED: MORPHINE SULFATE 10 MG/ML INJ IV PRN (21:57)
[2019-01-27] MEDS: INSULIN REG, HUMAN 100 UNIT/ML 3 ML VIAL (PYX) SUBCUT SCH (22:45)
[2019-01-27] MEDS ORDERED: HEPARIN SODIUM,PORCINE/D5W 25,000 UNIT/250 ML RTUINJ IV ONE (22:54)
[2019-01-27 23:54] LABS: APPEARANCE,URINE CLOUDY; BILIRUBIN,URINE NEGATIVE (NEGATIVE); COLOR,URINE YELLOW; GLUCOSE, URINE >=500 mg/dL (NEGATIVE); KETONES,URINE NEGATIVE (NEGATIVE); LEUKOCYTE ESTERASE,URINE NEGATIVE (NEGATIVE); NITRITE,URINE NEGATIVE (NEGATIVE); PROTEIN,URINE NEGATIVE (NEGATIVE); URINE SPECIFIC GRAVITY 1.029; UROBILINOGEN,URINE NEGATIVE mg/dL (<2.0)
[2019-01-28] MEDS ORDERED: HEPARIN SOD (PORCINE) 1,000 UNIT/ML 10 ML VIAL IV PRN (00:51)
[2019-01-28] MEDS: INSULIN REG, HUMAN 100 UNIT/ML 3 ML VIAL (PYX) SUBCUT SCH (00:56)
[2019-01-28 08:14] VITALS: BP 137/56
--- NOTE | 2019-01-30 14:45 | XCELERA REPORT ---
[address] [address] Lower Extremity Arterial Evaluation Name: CHARLEE CHING Age: 73 yrs Gender: Female : 1945 Patient Status: Emergency Patient Location: ER Study Date: 01/27/2019 10:14 PM Procedure: A color flow and duplex scan of the lower extremity arteries was performed bilaterally with velocity and waveform anaylsis. Reason For Study: eval arterial occlusion Ordering Physician: ROBB FLETCHER Performed By: Sharonda Roy Measurements and Calculations Right Left WINDOW CLERK PSV 113.5 139.9 cm/sec Prox PFA PSV -102.7 -177.2cm/sec Prox SFA PSV -72.0 86.7 cm/sec Mid SFA PSV 58.1 110.6 cm/sec Dist SFA PSV -104.2 -85.5 cm/sec Prox Pop A PSV 16.5 180.7 cm/sec Mid ROBINA PSV 12.2 cm/sec Mid FEED MIXER HELPER PSV 39.7 cm/sec Shaquille Pedis PSV 14.9 cm/sec Right Side Arterial Evaluation Normal velocity and triphasic waveforms, spectral broadening noted in the Common Femoral artery. Monophasic with low velocity in the Popliteal artery. Almost no flow in the infrageniculate vessels. Left Side Arterial Evaluation Normal velocity and biphasic waveforms, spectral broadening noted from the Common Femoral artery to the Popliteal. Monophasic with low velocity in the infrageniculate vessels. Interpretation Summary Severe hemodynamically significant lesions in the bilateral lower extremities, on duplex imaging, at rest. Very severe on the right, compatible with tissue loss. Distal Femoral on the right and infrageniculate on the left seems the location of hemodynamic disease. No focal lesions identified. The patient has appropriately been transferred out for Vascular evaluation, hopefully attempt at tissue salvage. : ROBB FLETCHER > Randall Torres
== END 2019-01-28 08:34 | disposition short-term general hospital (02) ==
LOC: ER 18:43
DX: I99.8 Other disorder of circulatory system (principal); M79.671 Pain in right foot; M79.604 Pain in right leg; I77.1 Stricture of artery; E11.9 Type 2 diabetes mellitus without complications; I25.10 Atherosclerotic heart disease of native coronary artery without angina pectoris; Z85.3 Personal history of malignant neoplasm of breast; Z79.4 Long term (current) use of insulin
CPT/HCPCS: 96376; 99291; 96365; 96366; 36415; 82962; 85025; 85610; 85730; 80053; 81001; 93925 ×2; J1644 ×2; A9270; J1815

== ENCOUNTER 2019-04-07 11:25 | Inpatient (IN) | payer OTHER, MEDICARE ==
[2019-04-07] MEDS ORDERED: ACETAMINOPHEN 325 MG TABLET PO ONE (12:05)
--- NOTE | 2019-04-07 12:09 | ER Document Report ---
ED Medical Screen (RME) - General Chief Complaint: Foot Pain Stated Complaint: LEG PAIN Time Seen by Provider: 04/07/19 11:55 Primary Care Provider: JUSTINA VIEIRA MD [Primary Care Provider] - Follow up as needed Mode of Arrival: Wheelchair Information source: Patient Notes: Patient presents to the emergency department with severe right foot pain. Reports she was here in January with same symptoms she was [facility]. She reports they did surgery on both legs. She reports DVTs. Patient reports her right foot is hurting more with more erythema. Patient is very tearful. Foot no pulse noted decreased cap refill I have greeted and performed a rapid initial assessment of this patient. A comprehensive ED assessment and evaluation of the patient, analysis of test results and completion of the medical decision making process will be conducted by additional ED providers. Dictation of this chart was performed using voice recognition software; therefore, there may be some unintended grammatical errors. TRAVEL OUTSIDE OF THE [place] IN LAST 30 DAYS: No - Related Data Allergies/Adverse Reactions: No Known Allergies Allergy (Verified 04/07/19 11:30) Past Medical History - Social History Chew tobacco use (# tins/day): No Frequency of alcohol use: None Drug Abuse: None - Past Medical History Cardiac Medical History: Reports: Hx Coronary Artery Disease Denies: Hx Heart Attack, Hx Hypercholesterolemia, Hx Hypertension Pulmonary Medical History: Denies: Hx Asthma Neurological Medical History: Denies: Hx Cerebrovascular Accident, Hx Seizures Endocrine Medical History: Reports: Hx Diabetes Mellitus Type 2 Renal/ Medical History: Denies: Hx Peritoneal Dialysis Malignancy Medical History: Reports: Hx Breast Cancer GI Medical History: Denies: Hx Hepatitis, Hx Hiatal Hernia, Hx Ulcer Infectious Medical History: Denies: Hx Hepatitis Past Surgical History: Reports: Hx Coronary Stent, Hx Gynecologic Surgery - Unsuccessful fallopian tuboplasty, Hx Mastectomy - RIGHT,RESTRICTED. Denies: Hx Hysterectomy, Hx Open Heart Surgery, Hx Pacemaker - Immunizations Hx Diphtheria, Pertussis, Tetanus Vaccination: No Physical Exam - Vital signs Vitals: Temp Pulse Resp BP Pulse Ox 97.9 F 63 16 159/57 H 98 04/07/19 11:36 04/07/19 11:36 04/07/19 11:36 04/07/19 11:36 04/07/19 11:36 Course - Vital Signs Vital signs: Temp Pulse Resp BP Pulse Ox 97.9 F 63 16 159/57 H 98 04/07/19 11:36 04/07/19 11:36 04/07/19 11:36 04/07/19 11:36 04/07/19 11:36 Doctor's Discharge - Discharge Referrals: JUSTINA VIEIRA MD [Primary Care Provider] - Follow up as needed
[2019-04-07 12:31] LABS: ABSOLUTE MONOCYTES (AUTO) 0.4 10^3/uL (0.1-1.4); ABSOLUTE NEUT (AUTO) 4.3 10^3/uL (1.7-8.2); BASOPHILS % (AUTO) 0.5 % (0-2); HEMATOCRIT 40.6 % (36.0-47.0); HEMOGLOBIN 13.5 g/dL (12.0-15.5); LYMPHOCYTES % (AUTO) 29.9 % (13-45); MEAN CORPUSCULAR HEMOGLOBIN 27.9 pg (27.0-33.4); MEAN CORPUSCULAR HGB CONC 33.2 g/dL (32.0-36.0); MEAN CORPUSCULAR VOLUME 84 fl (80-97); MONOCYTES % (AUTO) 6.5 % (3-13); PLATELET COUNT 196 10^3/uL (150-450); RED BLOOD COUNT 4.84 10^6/uL (3.72-5.28); RED CELL DISTRIBUTION WIDTH 13.6 % (11.5-14.0); SEGMENTED NEUTROPHILS % (AUTO) 63.1 % (42-78); TOTAL CELLS COUNTED % (AUTO) 100 %; WHITE BLOOD COUNT 6.7 10^3/uL (4.0-10.5)
[2019-04-07 12:34] LABS: INTERNATIONAL RATION (INR) 0.91; PROTHROMBIN TIME 12.7 SEC (11.4-15.4)
[2019-04-07 12:35] LABS: PARTIAL THROMBOPLASTIN TIME 25.8 SEC (23.5-35.8)
[2019-04-07 12:46] LABS: ALANINE AMINOTRANSFERASE 17 U/L (9-52); ALBUMIN 4.2 g/dL (3.5-5.0); ALKALINE PHOSPHATASE 96 U/L (38-126); ANION GAP 10 (5-19); ASPARTATE AMINO TRANSFERASE 15 U/L (14-36); BILIRUBIN,DIRECT 0.1 mg/dL (0.0-0.4); BILIRUBIN,TOTAL 0.4 mg/dL (0.2-1.3); BLOOD UREA NITROGEN 16 mg/dL (7-20); CALCIUM 10.3 mg/dL (8.4-10.2); CARBON DIOXIDE 29 mmol/L (22-30); CHLORIDE 100 mmol/L (98-107); GLUCOSE 373 mg/dL (75-110); POTASSIUM 4.4 mmol/L (3.6-5.0); SODIUM 139.1 mmol/L (137-145); TOTAL PROTEIN 7.1 g/dL (6.3-8.2)
--- NOTE | 2019-04-07 13:09 | RADIOLOGY REPORT (SQ) ---
EXAM DESCRIPTION: FOOT RIGHT 2 VIEWS COMPLETED DATE/TIME: 04/07/2019 12:43 pm REASON FOR STUDY: pain, erythema, hx dvt recent surgery COMPARISON: None. NUMBER OF VIEWS: Three views. TECHNIQUE: AP, lateral and oblique radiographic images acquired of the right foot. LIMITATIONS: None. FINDINGS: MINERALIZATION: Normal. BONES: No acute fracture or dislocation. No worrisome bone lesions. JOINTS: No effusions. SOFT TISSUES: No soft tissue swelling. No foreign body. OTHER: No other significant finding. IMPRESSION: NEGATIVE STUDY OF THE RIGHT FOOT. NO RADIOGRAPHIC EVIDENCE OF ACUTE INJURY. TECHNICAL DOCUMENTATION: JOB ID: [id number] [employer]- All Rights Reserved Reading location - IP/workstation name: [email or web address]
[2019-04-07] MEDS ORDERED: OXYCODONE HCL IR 5 MG TABLET PO ONE (14:21)
--- NOTE | 2019-04-07 14:37 | ER Document Report ---
ED Extremity Problem, Lower - General Chief Complaint: Foot Pain Stated Complaint: LEG PAIN Time Seen by Provider: 04/07/19 11:55 Mode of Arrival: Wheelchair Notes: Patient is a 73-year-old female with a history of diabetes, cardiac stent x1 and DVT who presents to the emergency department with bilateral foot pain. Patient states that she was sent dividing it in January 2019 for which she was told was "blood clots." Patient is unsure if blood clots were in both of her legs but she does state she had surgery on both legs. Patient states over the past week she has noticed more swelling and redness to the right foot. She also reports an open wound from the surgical site to the top of the right foot opened somet allen last week. Patient states there is been no draining from the site. Patient is a diabetic, and states that she takes glipizide and metformin. Patient states they did place her on Eliquis when she was discharged from biting which she has been taking. Patient states she has had significant pain in both of her feet and is concerned for another DVT. She denies shortness of breath or chest pain. TRAVEL OUTSIDE OF THE [place] IN LAST 30 DAYS: No - Related Data Allergies/Adverse Reactions: No Known Allergies Allergy (Verified 04/07/19 11:30) Past Medical History - General Information source: Patient - Social History Smoking Status: Unknown if Ever Smoked Chew tobacco use (# tins/day): No Frequency of alcohol use: None Drug Abuse: None Family History: Reviewed & Not Pertinent Patient has suicidal ideation: No Patient has homicidal ideation: No - Past Medical History Cardiac Medical History: Reports: Hx Coronary Artery Disease, Hx DVT Denies: Hx Heart Attack, Hx Hypercholesterolemia, Hx Hypertension Pulmonary Medical History: Reports: None Denies: Hx Asthma EENT Medical History: Reports: None Neurological Medical History: Reports: None. Denies: Hx Cerebrovascular Accident, Hx Seizures Endocrine Medical History: Reports: Hx Diabetes Mellitus Type 2 Renal/ Medical History: Reports: None. Denies: Hx Peritoneal Dialysis Malignancy Medical History: Reports: Hx Breast Cancer GI Medical History: Reports: None. Denies: Hx Hepatitis, Hx Hiatal Hernia, Hx Ulcer Musculoskeletal Medical History: Reports None Skin Medical History: Reports Hx Cellulitis Psychiatric Medical History: Reports: None Traumatic Medical History: Reports: None Infectious Medical History: Reports: None. Denies: Hx Hepatitis Past Surgical History: Reports: Hx Coronary Stent, Hx Gynecologic Surgery - Unsuccessful fallopian tuboplasty, Hx Mastectomy - RIGHT,RESTRICTED. Denies: Hx Hysterectomy, Hx Open Heart Surgery, Hx Pacemaker - Immunizations Hx Diphtheria, Pertussis, Tetanus Vaccination: No Review of Systems - Review of Systems Constitutional: No symptoms reported EENT: No symptoms reported Cardiovascular: No symptoms reported Respiratory: No symptoms reported Gastrointestinal: No symptoms reported Genitourinary: No symptoms reported Female Genitourinary: No symptoms reported Musculoskeletal: See HPI Skin: See HPI Hematologic/Lymphatic: No symptoms reported Neurological/Psychological: No symptoms reported Physical Exam - Vital signs Vitals: Temp Pulse Resp BP Pulse Ox 97.9 F 63 16 159/57 H 98 04/07/19 11:36 04/07/19 11:36 04/07/19 11:36 04/07/19 11:36 04/07/19 11:36 Interpretation: Hypertensive - Notes Notes: GENERAL: Well-appearing, well-nourished and in no acute distress. HEAD: Atraumatic, normocephalic. EYES: Pupils equal round and reactive to light, extraocular movements intact, sclera anicteric, conjunctiva are normal. ENT: Nares patent, oropharynx clear without exudates. Moist mucous membranes. NECK: Normal range of motion, supple without lymphadenopathy or JVD. LUNGS: Breath sounds clear to auscultation bilaterally and equal. No wheezes rales or rhonchi. HEART: Regular rate and rhythm without murmurs, rubs or gallops. ABDOMEN: Soft, nontender, normoactive bowel sounds. No guarding, no rebound. No masses appreciated. BACK: No cervical, thoracic, lumbar midline tenderness. No saddle anesthesia, normal distal neurovascular exam. GENITOURINARY: Deferred. EXTREMITIES: Right foot erythematous with soft tissue swelling. There is no pitting edema. There is an 2 cm open wound on the dorsal aspect of the right foot. There is no drainage or bleeding from the site. Patient has a weak right dorsalis pedis pulse, patient does have good cap refill less than 2 seconds and her toes are cool to touch. The left foot appears to be normal skin color consistent with the patient, there is no swelling, there is no redness, patient's toes are cool to touch but patient does have a good cap refill, and weak left dorsalis pedis pulse when attempting to palpate. NEUROLOGICAL: Cranial nerves II through XII grossly intact. Normal speech, normal gait. PSYCH: Normal mood, normal affect. SKIN: Warm, Dry, normal turgor, no rashes or lesions noted. Course - Re-evaluation Re-evalutation: 04/07/19 14:37 Upon initial assessment patient sitting upright on stretcher in no acute distress. Patient's right foot is significantly swollen with erythema. There is an open wound about 1.5 to 2 cm at the dorsal aspect of the right foot. There is no drainage from this. Due to patient's history of DVT and complaint of bilateral foot pain I do believe a venous Doppler is warranted at this time. Patient does have decreased pedal pulses bilaterally and feet are cool to touch. 04/07/19 16:55 Patient's doppler ultrasound was negative for blood clot and did support adequate blood flow. Due to patient's uncontrolled diabetes with a blood sugar in the 300s, opened wound and cellulitis to the right foot I do believe admission is necessary for IV antibiotics. I did speak with Dr. Berhane Bell who will admit the patient and come see her in the emergency department. IV vancomycin and Zosyn initiated. - Vital Signs Vital signs: Temp Pulse Resp BP Pulse Ox 97.9 F 63 16 159/57 H 98 04/07/19 11:36 04/07/19 11:36 04/07/19 11:36 04/07/19 11:36 04/07/19 11:36 - Laboratory Result Diagrams: 04/07/19 12:12 04/07/19 12:12 Laboratory results interpreted by me: 04/07/19 12:12 Glucose 373 H Calcium 10.3 H - Diagnostic Test Radiology reviewed: Reports reviewed Discharge - Discharge Clinical Impression: Wound of foot, Hyperglycemia, Leg pain, bilateral Cellulitis Qualifiers: Site of cellulitis: extremity Site of cellulitis of extremity: lower extremity Laterality: right Qualified Code(s): L03.115 - Cellulitis of right lower limb Type 2 diabetes mellitus Qualifiers: Diabetes mellitus usp insulin 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
--- NOTE | 2019-04-07 16:21 | XCELERA REPORT ---
[address] [facility] [id number] Lower Extremity Venous Evaluation Procedure: Color flow and duplex imaging bilaterally of the veins of the lower extremities as well as the Common Femoral veins. Right Sided Venous Evaluation Normal vessel filling wall to wall, compression and augmentation as well as Colour flow down to the infrageniculate veins. Left Sided Venous Evaluation Normal vessel filling wall to wall, compression and augmentation as well as Colour flow down to the infrageniculate veins. Interpretation Summary No duplex evidence of DVT or obstruction in the bilateral lower extremities. Name: CHARLEE CHING Age: 73 yrs Gender: Female : 1945 Patient Status: Emergency Patient Location: ER Study Date: 04/07/2019 02:48 PM Reason For Study: hx. dvt, foot pain Ordering Physician: ERIC HILL Performed By: Chrissy Lane : ERIC HILL > Randall Torres
[2019-04-07] MEDS ORDERED: VANCOMYCIN HCL INJ 1000 MG VIAL IV ONE (16:57)
[2019-04-07] MEDS ORDERED: PIPERACILLIN/TAZOBACTAM 3.375 GM VIAL IV ONE (16:59)
[2019-04-07] MEDS ORDERED: ONDANSETRON HCL INJ/PF 4 MG/2 ML SDV IV PRN (17:40)
[2019-04-07] MEDS ORDERED: ACETAMINOPHEN 325 MG TABLET PO PRN (17:40)
[2019-04-07] MEDS ORDERED: PROMETHAZINE HCL INJ 25 MG/1 ML VIAL IV PRN (17:40)
[2019-04-07] MEDS ORDERED: IPRATROPIUM/ALBUTEROL 0.5-2.5 MG/3 ML AMPUL NEB PRN (17:40)
[2019-04-07] MEDS ORDERED: MORPHINE SULFATE 10 MG/ML INJ IV PRN (18:16)
--- NOTE | 2019-04-07 18:16 | PDOC H&P ---
History of Present Illness Admission Date/PCP: 04/07/19 17:28 History of Present Illness: CHARLEE CHING is a 73 year old female past medical history of diabetes and peripheral arterial disease who [facility] was diagnosed with critical limb ischemia of bilateral lower extremity worse on the right side and subsequently was transferred to [facility] where she stayed until February 02 and received vascular intervention on bilateral lower extremities. Patient was discharged on February 02 and was asked to follow-up with the vascular surgeon on February 15, as per patient she followed up but was not seen by anybody and had to come back home. She is stating that she has been nonhealing wounds from the surgical sites on the bilateral lower extremities, with severe sharp, 9/10, sharp, constant pain of the lower extremities worse on the right side, with swelling and erythema of bilateral lower extremity worse on the right side. Patient is very upset and tearful stating that she did not get a proper follow- up and she has been in severe pain since the surgery. Denies any fever, chills, sob, chest pain, shortness of breath, headache, nausea, vomiting, diarrhea, constipation or any urinary symptoms. She is still ambulatory but with great difficulty. She lives alone and she is very upset about the fact that she cannot carry on her daily chores. In ED and x-ray of the right foot and venous Doppler did not show any acute abnormalities. On physical examination there are several surgical wounds as follow: one surgical over medial aspect the left thigh over femoral artery territory which looks clean but tender to palpation with mild erythema on the edges. Several surgical wounds on the right lower extremity. One over medial aspect the right thigh over femoral artery territory which looks clean but tender to palpation with mild erythema on the edges, one below the knee on medial aspect over the tibial artery, on over lateral medial malleolus over posterior tibial artery, one over dorsal aspect of the foot over dorsalis pedis artery. All Surgical wounds are tender to palpation, erythematous with mild swelling, but no active discharge. Past Medical History Cardiac Medical History: Reports: Coronary Artery Disease Denies: Myocardial Infarction, Hyperlipidema, Hypertension Pulmonary Medical History: Denies: Asthma Neurological Medical History: Denies: Seizures Endocrine Medical History: Reports: Diabetes Mellitus Type 2 Malignancy Medical History: Reports: Breast Cancer GI Medical History: Denies: Hepatitis, Hiatal Hernia Hematology: Denies: Anemia, Sickle Cell Disease Past Surgical History Past Surgical History: Reports: Coronary Stent, Mastectomy - RIGHT,RESTRICTED Denies: Amputation, Hysterectomy, Pacemaker Social History Smoking Status: Unknown if Ever Smoked Family History Family History: Reviewed & Not Pertinent Parental Family History Reviewed: Yes Children Family History Reviewed: Yes Sibling(s) Family History Reviewed.: Yes Medication/Allergy Allergies/Adverse Reactions: No Known Allergies Allergy (Verified 04/07/19 11:30) Review of Systems Review of Systems: as per hpi Physical Exam Vital Signs: Temp Pulse Resp BP Pulse Ox 97.9 F 63 16 159/57 H 98 04/07/19 11:36 04/07/19 11:36 04/07/19 11:36 04/07/19 11:36 04/07/19 11:36 Intake & Output 04/06/19 04/07/19 04/08/19 06:59 06:59 06:59 Weight 61.1 kg General appearance: PRESENT: no acute distress, well-developed, well-nourished Head exam: PRESENT: atraumatic, normocephalic Respiratory exam: PRESENT: clear to auscultation tom. ABSENT: rales, rhonchi, wheezes Cardiovascular exam: PRESENT: RRR. ABSENT: diastolic murmur, rubs, systolic murmur Pulses: PRESENT: normal dorsalis pedis pul GI/Abdominal exam: PRESENT: normal bowel sounds, soft. ABSENT: distended, guarding, mass, organolmegaly, rebound, tenderness Extremities exam: PRESENT: full ROM, other - one surgical over medial aspect th e left thigh over femoral artery territory which looks clean but tender to palpation with mild erythema on the edges. Several surgical wounds on the right lower extremity. One over medial aspect the right thigh over femoral artery territory which looks clean but tender to palpation with mild erythema on the edges, one below the knee on medial aspect over the tibial artery, on over lateral medial malleolus over posterior tibial artery, one over dorsal aspect of the foot over dorsalis pedis artery. All Surgical wounds are tender to palpation, erythematous with mild swelling, but no active discharge.. ABSENT: calf tenderness, clubbing, pedal edema Neurological exam: PRESENT: alert, awake, oriented to person, oriented to place, oriented to time, oriented to situation, CN II-XII grossly intact. ABSENT: motor sensory deficit Psychiatric exam: PRESENT: anxious Results Laboratory Results: 04/07/19 12:12 04/07/19 12:12 04/07/19 04/07/19 12:12 12:12 WBC 6.7 RBC 4.84 Hgb 13.5 Hct 40.6 MCV 84 MCH 27.9 MCHC 33.2 RDW 13.6 Plt Count 196 Seg Neutrophils % 63.1 Lymphocytes % 29.9 Monocytes % 6.5 Eosinophils % 0.0 Basophils % 0.5 Absolute Neutrophils 4.3 Absolute Lymphocytes 2.0 Absolute Monocytes 0.4 Absolute Eosinophils 0.0 Absolute Basophils 0.0 Sodium 139.1 Potassium 4.4 Chloride 100 Carbon Dioxide 29 Anion Gap 10 BUN 16 Creatinine 0.56 Est GFR ( Amer) > 60 Est GFR (Non-Af Amer) > 60 Glucose 373 H Calcium 10.3 H Total Bilirubin 0.4 AST 15 ALT 17 Alkaline Phosphatase 96 Total Protein 7.1 Albumin 4.2 Impressions: Foot X-Ray 04/07/19 12:05 IMPRESSION: NEGATIVE STUDY OF THE RIGHT FOOT. NO RADIOGRAPHIC EVIDENCE OF ACUTE INJURY. Assessment and Plan - Diagnosis (1) Surgical wound, non healing Qualifiers: Encounter type: initial encounter Qualified Code(s): T81.89XA - Other complications of procedures, not elsewhere classified, initial encounter Is this a current diagnosis for this admission?: Yes Plan: Empiric IV antibiotics, wound care, analgesics. Consult surgery for evaluation. Right foot x-ray and right lower extremity venous Doppler negative for any acute abnormalities. Pending ESR and CRP. Right lower extremity arterial Doppler. (2) Cellulitis Qualifiers: Site of cellulitis: extremity Site of cellulitis of extremity: lower extremity Laterality: right Qualified Code(s): L03.115 - Cellulitis of right lower limb Is this a current diagnosis for this admission?: Yes Plan: Surgical wound over dorsalis pedis on the right foot looks more erythematous with swelling and TTP. Afebrile, no leukocytosis, pending ESR and CRP. X-ray negative for osteomyelitis. Empiric IV antibiotics, switch to once appropriate. Follw up wound culture, ESR and CRP. (3) Diabetes mellitus, type II Is this a current diagnosis for this admission?: No Plan: Diabetic diet, long-acting insulin, pre-meal insulin, sliding scale insulin, Accu-Chek, hypoglycemia protocol. Adjust dosage as needed. Pending hemoglobin A1c. (4) PAD (peripheral artery disease) Is this a current diagnosis for this admission?: No Plan: Status post vascular intervention in January 2019. We will get arterial Dopplers to reevaluate.
[2019-04-07] MEDS: OXYCODONE-ACETAMINOPHEN 5-325 MG TABLET PO PRN (19:10)
[2019-04-07] MEDS: DOCUSATE SODIUM 100 MG CAPSULE PO SCH (19:21)
[2019-04-07] MEDS ORDERED: HYDRALAZINE HCL INJ/PF 20 MG/1 ML SDV IV PRN (21:58)
[2019-04-07] MEDS ORDERED: AMLODIPINE BESYLATE 10 MG TABLET PO ONE (22:00)
[2019-04-07] MEDS: CLINDAMYCIN 600 MG/D5W RTU 600 MG/50 ML RTUPB IV SCH (22:15)
[2019-04-07] MEDS: FAMOTIDINE 20 MG TABLET PO SCH (22:16)
[2019-04-07] MEDS ORDERED: DEXTROSE 40% GEL 15 GM TUBE X 2 PO PRN (22:30)
[2019-04-07] MEDS ORDERED: DEXTROSE 50%-WATER SYRINGE 12.5 GM/25 ML DOSE IV PRN (22:30)
[2019-04-07] MEDS ORDERED: DEXTROSE 50%-WATER SYRINGE 25 GM/50 ML DOSE IV PRN (22:30)
[2019-04-07] MEDS ORDERED: GLUCAGON,HUMAN RECOMB 1 MG INJ IM PRN (22:30)
[2019-04-07] MEDS ORDERED: DEXTROSE 40% GEL 15 GM TUBE PO PRN (22:30)
[2019-04-08 05:01] LABS: HEMATOCRIT 37.6 % (36.0-47.0); HEMOGLOBIN 12.7 g/dL (12.0-15.5); MEAN CORPUSCULAR HEMOGLOBIN 28.3 pg (27.0-33.4); MEAN CORPUSCULAR HGB CONC 33.8 g/dL (32.0-36.0); MEAN CORPUSCULAR VOLUME 84 fl (80-97); PLATELET COUNT 185 10^3/uL (150-450); RED CELL DISTRIBUTION WIDTH 13.7 % (11.5-14.0); WHITE BLOOD COUNT 7.6 10^3/uL (4.0-10.5)
[2019-04-08 05:34] LABS: ANION GAP 9 (5-19); BLOOD UREA NITROGEN 14 mg/dL (7-20); CALCIUM 9.5 mg/dL (8.4-10.2); CARBON DIOXIDE 26 mmol/L (22-30); CHLORIDE 102 mmol/L (98-107); GLUCOSE 331 mg/dL (75-110); POTASSIUM 4.3 mmol/L (3.6-5.0); SODIUM 136.9 mmol/L (137-145)
[2019-04-08] MEDS: CLINDAMYCIN 600 MG/D5W RTU 600 MG/50 ML RTUPB IV SCH ×3 (05:37→22:38)
[2019-04-08] MEDS ORDERED: GLUCAGON,HUMAN RECOMB 1 MG INJ IM PRN (07:28)
[2019-04-08] MEDS ORDERED: DEXTROSE 50%-WATER 25 GM/50 ML DISP.SYRIN IV PRN ×2 (07:28)
[2019-04-08] MEDS ORDERED: DEXTROSE 40% GEL 15 GM TUBE PO PRN ×2 (07:28)
[2019-04-08] MEDS: METFORMIN HCL 500 MG TABLET PO SCH ×2 (08:51→17:48)
[2019-04-08] MEDS: INSULIN LISPRO 100 UNIT/ML 3 ML VIAL SUBCUT SCH ×3 (08:52→16:49)
--- NOTE | 2019-04-08 09:36 | PDOC PROGRESS REPORT ---
Subjective Progress Note for:: 04/08/19 Subjective:: CHARLEE CHING is a 73 year old female past medical history of diabetes and peripheral arterial disease who presented to [facility] on 01/27/2019 was diagnosed with critical limb ischemia of bilateral lower extremity worse on the right side and subsequently was transferred to [facility] where she stayed until February 02 and received vascular intervention on bilateral lower extremities. Patient was discharged on February 02 and was asked to follow-up with the vascular surgeon on February 15, as per patient she followed up but was not seen by anybody and had to come back home. She is stating that she has been nonhealing wounds from the surgical sites on the bilateral lower extremities, with severe sharp, 9/10, sharp, constant pain of the lower extremities worse on the right side, with swelling and erythema of bilateral lower extremity worse on the right side. Patient is very upset and tearful stating that she did not get a proper follow- up and she has been in severe pain since the surgery. Denies any fever, chills, sob, chest pain, shortness of breath, headache, nausea, vomiting, diarrhea, constipation or any urinary symptoms. She is still ambulatory but with great difficulty. She lives alone and she is very upset about the fact that she cannot carry on her daily chores. In ED and x-ray of the right foot and venous Doppler did not show any acute ab normalities. On physical examination there are several surgical wounds as follow: one surgical over medial aspect the left thigh over femoral artery territory which looks clean but tender to palpation with mild erythema on the edges. Several surgical wounds on the right lower extremity. One over medial aspect the right thigh over femoral artery territory which looks clean but tender to palpation with mild erythema on the edges, one below the knee on medial aspect over the tibial artery, on over lateral medial malleolus over posterior tibial artery, one over dorsal aspect of the foot over dorsalis pedis artery. All Surgical wounds are tender to palpation, erythematous with mild swelling, but no active discharge. 04/08/2019. No acute events overnight. Patient is less anxious and is stating that her lower extremity pain is better than yesterday. Denies any fever, chills, nausea, vomiting, diarrhea, constipation or any urinary symptoms. Patient pending evaluation by surgery and right lower extremity arterial Doppler. Reason For Visit: BLE PAIN,POST VASCULAR INTERVENTION Physical Exam Vital Signs: Temp Pulse Resp BP Pulse Ox 98.5 F 65 16 102/72 95 04/08/19 06:51 04/08/19 06:51 04/08/19 06:51 04/08/19 06:51 04/08/19 06:51 Intake & Output 04/07/19 04/08/19 04/09/19 06:59 06:59 06:59 Intake Total 50 Output Total 0 Balance 50 Weight 60.6 kg General appearance: PRESENT: no acute distress, well-developed, well-nourished Head exam: PRESENT: atraumatic, normocephalic Respiratory exam: PRESENT: clear to auscultation tom. ABSENT: rales, rhonchi, wheezes Cardiovascular exam: PRESENT: RRR. ABSENT: diastolic murmur, rubs, systolic murmur GI/Abdominal exam: PRESENT: normal bowel sounds, soft. ABSENT: distended, guarding, mass, organolmegaly, rebound, tenderness Extremities exam: PRESENT: full ROM, other - Several surgical wounds on the right lower extremity. One over medial aspect the right thigh over femoral artery territory which looks clean but tender to palpation with mild erythema on the edges, one below the knee on medial aspect over the tibial artery, on over lateral medial malleolus over posterior tibial artery, one over dorsal aspect of the foot over dorsalis pedis artery. All Surgical wounds are tender to palpation, erythematous with mild swelling, but no active discharge.. ABSENT: calf tenderness, clubbing, pedal edema Neurological exam: PRESENT: alert, awake, oriented to person, oriented to place, oriented to time, oriented to situation, CN II-XII grossly intact. ABSENT: motor sensory deficit Results Laboratory Results: 04/08/19 03:58 04/08/19 03:58 04/07/19 04/07/19 04/07/19 12:12 12:12 19:00 WBC 6.7 RBC 4.84 Hgb 13.5 Hct 40.6 MCV 84 MCH 27.9 MCHC 33.2 RDW 13.6 Plt Count 196 Seg Neutrophils % 63.1 Lymphocytes % 29.9 Monocytes % 6.5 Eosinophils % 0.0 Basophils % 0.5 Absolute Neutrophils 4.3 Absolute Lymphocytes 2.0 Absolute Monocytes 0.4 Absolute Eosinophils 0.0 Absolute Basophils 0.0 Sodium 139.1 Potassium 4.4 Chloride 100 Carbon Dioxide 29 Anion Gap 10 BUN 16 Creatinine 0.56 Est GFR ( Amer) > 60 Est GFR (Non-Af Amer) > 60 Glucose 373 H Calcium 10.3 H Total Bilirubin 0.4 AST 15 ALT 17 Alkaline Phosphatase 96 C-Reactive Protein < 5.0 Total Protein 7.1 Albumin 4.2 04/08/19 04/08/19 03:58 03:58 WBC 7.6 RBC 4.50 Hgb 12.7 Hct 37.6 MCV 84 MCH 28.3 MCHC 33.8 RDW 13.7 Plt Count 185 Seg Neutrophils % Lymphocytes % Monocytes % Eosinophils % Basophils % Absolute Neutrophils Absolute Lymphocytes Absolute Monocytes Absolute Eosinophils Absolute Basophils Sodium 136.9 L Potassium 4.3 Chloride 102 Carbon Dioxide 26 Anion Gap 9 BUN 14 Creatinine 0.72 Est GFR ( Amer) > 60 Est GFR (Non-Af Amer) > 60 Glucose 331 H Calcium 9.5 Total Bilirubin AST ALT Alkaline Phosphatase C-Reactive Protein Total Protein Albumin Impressions: Foot X-Ray 04/07/19 12:05 IMPRESSION: NEGATIVE STUDY OF THE RIGHT FOOT. NO RADIOGRAPHIC EVIDENCE OF ACUTE INJURY. Assessment and Plan - Diagnosis (1) Surgical wound, non healing Qualifiers: Encounter type: initial encounter Qualified Code(s): T81.89XA - Other complications of procedures, not elsewhere classified, initial encounter Is this a current diagnosis for this admission?: Yes Plan: Improvement. WBC WNL. CRP <5.0 ESR 30. Received 1 dose of vancomycin and Zosyn in ED. Switch to clindamycin IV. Day #2 of IV antibiotics. Day 2 clindamycin. Continue empiric IV antibiotics, wound care, analgesics, follow-up cultures. Surgery has been consulted. Pending right lower extremity arterial Doppler. Pending medical records. Right foot x-ray and right lower extremity venous Doppler negative for any acute abnormalities. (2) Cellulitis Qualifiers: Site of cellulitis: extremity Site of cellulitis of extremity: lower extremity Laterality: right Qualified Code(s): L03.115 - Cellulitis of right lower limb Is this a current diagnosis for this admission?: Yes Plan: Surgical wound over dorsalis pedis on the right foot looks more erythematous with swelling and TTP. Afebrile, CMP, CBC WNL. ESR 30, CRP <5.0. X-ray negative for osteomyelitis. Empiric IV antibiotics, switch to once appropriate. 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 Adjust dosage as needed. Pending hemoglobin A1c. (4) PAD (peripheral artery disease) Is this a current diagnosis for this admission?: No
[2019-04-08] MEDS: DOCUSATE SODIUM 100 MG CAPSULE PO SCH ×2 (09:49→17:43)
[2019-04-08] MEDS ORDERED: AMLODIPINE BESYLATE 10 MG TABLET PO SCH (10:00)
[2019-04-08] MEDS: FAMOTIDINE 20 MG TABLET PO SCH ×2 (10:02→22:38)
[2019-04-08] MEDS: ENOXAPARIN SODIUM INJ 40 MG/0.4 ML DISP.SYRIN SUBCUT SCH (10:02)
[2019-04-08] MEDS: ASPIRIN 325 MG TABLET PO SCH (10:02)
[2019-04-08] MEDS: GLIPIZIDE XL 2.5 MG TAB.ER.24 PO SCH (10:02)
[2019-04-08] MEDS: INSULIN GLARGINE,HUM.REC.ANLOG 1,000 UNIT/10 ML VIAL SUBCUT SCH (10:47)
--- NOTE | 2019-04-08 15:10 | PDOC CONSULTATION ---
Consultation Consult Date: 04/08/19 Provider Consulted: NATANAEL VELAZCO Consult reason:: non healing painful incision sites post vascular surgery procedure History of Present Illness Admission Date/PCP: 04/07/19 17:28 History of Present Illness: CHARLEE CHING is a 73 year old female with DM and PVD had vascular procedures done on both legs at [facility] in January. Patient went back to [facility] for follow up and was disappointed because a non physician saw her and not her surgeon. She claims alex was not any improvement to her symptoms after the procedure on both legs in January 2019. She still has numbness of her right toes and pains. She had a venous doppler done in ED which showed no DVT. I just ordered arterial doppler of both legs to check circularion. Apparently, unable to obtain records from [facility] per RVT tech. Past Medical History Cardiac Medical History: Reports: Coronary Artery Disease, DVT Denies: Myocardial Infarction, Hyperlipidema, Hypertension Pulmonary Medical History: Reports: None Denies: Asthma EENT Medical History: Reports: None Neurological Medical History: Reports: None Denies: Seizures Endocrine Medical History: Reports: Diabetes Mellitus Type 2 Renal/ Medical History: Reports: None Malignancy Medical History: Reports: Breast Cancer GI Medical History: Reports: None Denies: Hepatitis, Hiatal Hernia Musculoskeltal Medical History: Reports: None Psychiatric Medical History: Reports: None Traumatic Medical History: Reports: None Hematology: Denies: Anemia, Sickle Cell Disease Infectious Medical History: Reports: None Past Surgical History Past Surgical History: Reports: Coronary Stent, Mastectomy - RIGHT,RESTRICTED, Vascular Surgery - lower extremities at [facility] Denies: Amputation, Hysterectomy, Pacemaker Social History Smoking Status: Unknown if Ever Smoked Frequency of Alcohol Use: None Hx Recreational Drug Use: No Drugs: None Hx Prescription Drug Abuse: No Family History Family History: Reviewed & Not Pertinent Parental Family History Reviewed: Yes Children Family History Reviewed: No Sibling(s) Family History Reviewed.: No Medication/Allergy Home Medications: Aspirin [Aspirin 325 mg Tablet] 325 mg PO DAILY 04/07/19 Glipizide [Glucotrol Xl 2.5 mg Tab.er] 2.5 mg PO DAILY 04/07/19 Metformin HCl [Glucophage XR 500 mg Tablet] 500 mg PO DAILY 04/07/19 Allergies/Adverse Reactions: No Known Allergies Allergy (Verified 04/07/19 11:30) Review of Systems Constitutional: PRESENT: as per HPI Integumentary: PRESENT: wounds - very sensitive to touch Neurological: PRESENT: other - cannot walk far because of leg pains Physical Exam Vital Signs: Temp Pulse Resp BP Pulse Ox 98.5 F 78 16 154/62 H 99 04/08/19 06:51 04/08/19 13:44 04/08/19 13:44 04/08/19 11:48 04/08/19 13:44 Intake & Output 04/07/19 04/08/19 04/09/19 06:59 06:59 06:59 Intake Total 50 750 Output Total 0 Balance 50 750 Weight 60.6 kg General appearance: PRESENT: mild distress Head exam: PRESENT: atraumatic Eye exam: PRESENT: conjunctival injection Mouth exam: PRESENT: moist Neck exam: PRESENT: full ROM Respiratory exam: PRESENT: clear to auscultation tom Cardiovascular exam: PRESENT: RRR Pulses: PRESENT: normal radial pulses, other - palpable tom femoral pulses Unable to palpate pop and ankle pulses bilaterally Vascular exam: PRESENT: normal capillary refill - both feet are cool but able to move toes of both feet. Capillary refill of toes just slightly prolonged GI/Abdominal exam: PRESENT: soft Rectal exam: PRESENT: deferred Extremities exam: PRESENT: full ROM, other - Operative wounds to right medial above knee appears heling well but tender. Both pucture sites tom femoral area are dry but tender. No obvious A-V fistula. Dorsum right foot incision slightly open(skin) erythematous and dry and very sensitive to touch. Right foot and ankl e with erythema Musculoskeletal exam: PRESENT: ambulatory Neurological exam: PRESENT: alert, oriented to person, oriented to place, oriented to time, oriented to situation Psychiatric exam: PRESENT: anxious Skin exam: PRESENT: erythema - cool right foot. left foot cool and pale Results Laboratory Results: 04/08/19 03:58 04/08/19 03:58 04/07/19 04/08/19 04/08/19 19:00 03:58 03:58 WBC 7.6 RBC 4.50 Hgb 12.7 Hct 37.6 MCV 84 MCH 28.3 MCHC 33.8 RDW 13.7 Plt Count 185 Sodium 136.9 L Potassium 4.3 Chloride 102 Carbon Dioxide 26 Anion Gap 9 BUN 14 Creatinine 0.72 Est GFR ( Amer) > 60 Est GFR (Non-Af Amer) > 60 Glucose 331 H Calcium 9.5 C-Reactive Protein < 5.0 Impressions: Foot X-Ray 04/07/19 12:05 IMPRESSION: NEGATIVE STUDY OF THE RIGHT FOOT. NO RADIOGRAPHIC EVIDENCE OF ACUTE INJURY. 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 Diabetes mellitus complication status: with skin complications Diabetes mellitus complication detail: with other skin complication Qualified Code(s): E11.628 - Type 2 diabetes mellitus with other skin complications Is this a current diagnosis for this admission?: Yes (3) Leg pain, bilateral Is this a current diagnosis for this admission?: Yes (4) PAD (peripheral artery disease) Is this a current diagnosis for this admission?: Yes (5) Surgical wound, non healing Qualifiers: Encounter type: initial encounter Qualified Code(s): T81.89XA - Other complications of procedures, not elsewhere classified, initial encounter Is this a current diagnosis for this admission?: Yes - Time Time Spent: 30 to 50 Minutes - Inpatient Certification Medical Necessity: Need for IV Antibiotics - Plan Summary Plan Summary: Collin had arterial doppler of both extremities. Await interpretation. Incisions in both feet are relatively clean and dry and patient not severely symptomatic. No significant rest pains. Unfortunately, we don't have vascular surgery in [place]. No obvious emergency condition at this time. Just needs follow up with vascular surgery in [facility] on OPD basis. Unless arterial doppler shows severe arterial insufficiency then will need transfer. Operative report from [facility] read. Appers to have appropriate procedure. Wounds status as expected. Will sign off.
[2019-04-09] MEDS: CLINDAMYCIN 600 MG/D5W RTU 600 MG/50 ML RTUPB IV SCH ×3 (06:30→21:54)
[2019-04-09] MEDS: INSULIN LISPRO 100 UNIT/ML 3 ML VIAL SUBCUT SCH ×3 (07:56→16:48)
[2019-04-09] MEDS: METFORMIN HCL 500 MG TABLET PO SCH ×2 (08:05→16:48)
[2019-04-09] MEDS: INSULIN GLARGINE,HUM.REC.ANLOG 1,000 UNIT/10 ML VIAL SUBCUT SCH (08:05)
[2019-04-09] MEDS: ASPIRIN 325 MG TABLET PO SCH (10:27)
[2019-04-09] MEDS: FAMOTIDINE 20 MG TABLET PO SCH ×2 (10:27→21:54)
[2019-04-09] MEDS: GLIPIZIDE XL 2.5 MG TAB.ER.24 PO SCH (10:27)
[2019-04-09] MEDS: ENOXAPARIN SODIUM INJ 40 MG/0.4 ML DISP.SYRIN SUBCUT SCH (10:27)
[2019-04-09] MEDS: LISINOPRIL 10 MG TABLET PO SCH (10:27)
[2019-04-09] MEDS: DOCUSATE SODIUM 100 MG CAPSULE PO SCH ×2 (10:27→17:00)
[2019-04-09 11:18] LABS: CHOLESTEROL 207.73 mg/dL (0-200); TRIGLYCERIDES 124 mg/dL (<150)
[2019-04-09 11:29] LABS: DIRECT LDL 111 mg/dL (<100)
--- NOTE | 2019-04-09 12:16 | PDOC PROGRESS REPORT ---
Subjective Progress Note for:: 04/09/19 Subjective:: CHARLEE CHING is a 73 year old female past medical history of diabetes and peripheral arterial disease who presented to [facility] on 01/27/2019 was diagnosed with critical limb ischemia of bilateral lower extremity worse on the right side and subsequently was transferred to [facility] where she stayed until February 02 and received vascular intervention on bilateral lower extremities. Patient was discharged on February 02 and was asked to follow-up with the vascular surgeon on February 15, as per patient she followed up but was not seen by anybody and had to come back home. She is stating that she has been nonhealing wounds from the surgical sites on the bilateral lower extremities, with severe sharp, 9/10, sharp, constant pain of the lower extremities worse on the right side, with swelling and erythema of bilateral lower extremity worse on the right side. Patient is very upset and tearful stating that she did not get a proper follow- up and she has been in severe pain since the surgery. Denies any fever, chills, sob, chest pain, shortness of breath, headache, nausea, vomiting, diarrhea, constipation or any urinary symptoms. She is still ambulatory but with great difficulty. She lives alone and she is very upset about the fact that she cannot carry on her daily chores. In ED and x-ray of the right foot and venous Doppler did not show any acute ab normalities. On physical examination there are several surgical wounds as follow: one surgical over medial aspect the left thigh over femoral artery territory which looks clean but tender to palpation with mild erythema on the edges. Several surgical wounds on the right lower extremity. One over medial aspect the right thigh over femoral artery territory which looks clean but tender to palpation with mild erythema on the edges, one below the knee on medial aspect over the tibial artery, on over lateral medial malleolus over posterior tibial artery, one over dorsal aspect of the foot over dorsalis pedis artery. All Surgical wounds are tender to palpation, erythematous with mild swelling, but no active discharge. 04/08/2019. No acute events overnight. Patient is less anxious and is stating that her lower extremity pain is better than yesterday. Denies any fever, chills, nausea, vomiting, diarrhea, constipation or any urinary symptoms. Patient pending evaluation by surgery and right lower extremity arterial Doppler. 04/09/2019. Patient is still complaining of bilateral lower extremity pain however improved since admission. She has been evaluated by surgery and the recommendation is lower extremity arterial Doppler and if positive follow-up with vascular surgeon and negative follow-up will wound care as outpatient. Denies any fever, chills, nausea, vomiting, diarrhea, constipation or any urinary symptoms. Reason For Visit: BLE PAIN,POST VASCULAR INTERVENTION Physical Exam Vital Signs: Temp Pulse Resp BP Pulse Ox 98.3 F 76 16 151/56 H 100 04/09/19 11:21 04/09/19 11:21 04/09/19 11:21 04/09/19 11:21 04/09/19 11:21 Intake & Output 04/08/19 04/09/19 04/10/19 06:59 06:59 06:59 Intake Total 50 1510 50 Output Total 0 Balance 50 1510 50 Weight 60.6 kg 61.9 kg General appearance: PRESENT: no acute distress, well-developed, well-nourished Head exam: PRESENT: atraumatic, normocephalic Respiratory exam: PRESENT: clear to auscultation tom. ABSENT: rales, rhonchi, wheezes Cardiovascular exam: PRESENT: RRR. ABSENT: diastolic murmur, rubs, systolic murmur GI/Abdominal exam: PRESENT: normal bowel sounds, soft. ABSENT: distended, guarding, mass, organolmegaly, rebound, tenderness Musculoskeletal exam: PRESENT: tenderness - Bilateral lower extremity surgical incision due to recent vascular intervention. TTP especially incision over dorsal foot. Incisions look clean no sign of infection. Mild erythema and swelling over right foot. Results Laboratory Results: 04/08/19 03:58 04/08/19 03:58 04/09/19 10:32 Triglycerides 124 Cholesterol 207.73 H LDL Cholesterol Direct 111 H VLDL Cholesterol 25.0 HDL Cholesterol 56 Impressions: Foot X-Ray 04/07/19 12:05 IMPRESSION: NEGATIVE STUDY OF THE RIGHT FOOT. NO RADIOGRAPHIC EVIDENCE OF ACUTE INJURY. Assessment and Plan - Diagnosis (1) Surgical wound, non healing Qualifiers: Encounter type: initial encounter Qualified Code(s): T81.89XA - Other complications of procedures, not elsewhere classified, initial encounter Is this a current diagnosis for this admission?: Yes Plan: Improvement. WBC WNL. CRP <5.0 ESR 30. Received 1 dose of vancomycin and Zosyn in ED. Switch to clindamycin IV. Day #3 of IV antibiotics. Day 3 clindamycin. Continue empiric IV antibiotics, wound care, analgesics, follow-up cultures. General surgery has been consulted, they have evaluated patient and they recommend arterial Doppler and if positive follow-up with vascular surgeon at [facility] and if negative to follow-up with wound care as outpatient. Follow-up lower extremity arterial Doppler. Right foot x-ray and right lower extremity venous Doppler negative for any acute abnormalities. (2) Cellulitis Qualifiers: Site of cellulitis: extremity Site of cellulitis of extremity: lower extremity Laterality: right Qualified Code(s): L03.115 - Cellulitis of right lower limb Is this a current diagnosis for this admission?: Yes Plan: Surgical wound over dorsalis pedis on the right foot looks more erythematous with swelling and TTP. Afebrile, CMP, CBC WNL. ESR 30, CRP <5.0. X-ray negative for osteomyelitis. Empiric IV antibiotics, switch to once appropriate. 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 A1c > 10%. Increase metformin to thousand milligrams p.o. twice daily, glyburide 2.5 mg p.o. daily. Diabetic diet, long-acting insulin, pre-meal insulin, sliding scale insulin, Accu-Chek, hypoglycemia protocol. Adjust dosage as needed. Patient will need to be discharged on insulin. (4) PAD (peripheral artery disease) Is this a current diagnosis for this admission?: Yes Plan: Status post vascular intervention in January 2019. Pending arterial Doppler. (5) Hyperlipidemia Is this a current diagnosis for this admission?: Yes Plan: ASCVD score of 43%. Diet and lifestyle modification advised. High intensity statins. Monitor LFTs. Outpatient PCP follow-up.
--- NOTE | 2019-04-09 14:22 | XCELERA REPORT ---
[address] [address] Lower Extremity Arterial Evaluation Name: CHARLEE CHING Age: 73 yrs Gender: Female : 1945 Patient Status: Inpatient Patient Location: [address] [place], [place] [address] Study Date: 04/08/2019 09:57 AM Procedure: A color flow and duplex scan of the lower extremity arteries was performed on the left with velocity and waveform anaylsis. 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 Occluded Femoral artery with monophasic reconstitution, very low velocity, spectral broadening, in the infrageniculate vessels, Occluded Dorsalis Pedis, trickle flow in the Anterior Tibial artery. Ankle Brachial index not obtained due to pain. Left Side Arterial Evaluation Normal velocity and triphasic waveforms noted in the Common Femoral artery. Biphasic, normal velocity in the Deep Femoral artery. Monophasic , low velocity, spectral broadening, in Popliteal to the infrageniculate vessels,. Interpretation Summary Severe hemodynamically significant lesions in the bilateral lower extremities, on duplex imaging, at rest. High grade disease in the Femoral arteries, with sequential changes. Slightly worse on the right. : LALIT SALOMON > Randall Torres
[2019-04-09] MEDS: ATORVASTATIN CALCIUM 40 MG TABLET PO SCH (21:54)
[2019-04-10] MEDS: CLINDAMYCIN 600 MG/D5W RTU 600 MG/50 ML RTUPB IV SCH ×3 (05:07→22:54)
[2019-04-10] MEDS: INSULIN LISPRO 100 UNIT/ML 3 ML VIAL SUBCUT SCH ×3 (08:00→15:56)
[2019-04-10] MEDS ORDERED: INSULIN GLARGINE,HUM.REC.ANLOG 1,000 UNIT/10 ML VIAL SUBCUT SCH (08:00)
[2019-04-10] MEDS ORDERED: GLUCAGON,HUMAN RECOMB 1 MG INJ IM PRN (08:37)
[2019-04-10] MEDS ORDERED: DEXTROSE 50%-WATER 25 GM/50 ML DISP.SYRIN IV PRN ×2 (08:37)
[2019-04-10] MEDS ORDERED: DEXTROSE 40% GEL 15 GM TUBE PO PRN ×2 (08:37)
[2019-04-10] MEDS: METFORMIN HCL 500 MG TABLET PO SCH ×2 (08:39→15:53)
[2019-04-10] MEDS: DOCUSATE SODIUM 100 MG CAPSULE PO SCH ×2 (09:29→17:10)
[2019-04-10] MEDS: GLIPIZIDE XL 2.5 MG TAB.ER.24 PO SCH (09:30)
[2019-04-10] MEDS: FAMOTIDINE 20 MG TABLET PO SCH ×2 (09:30→22:54)
[2019-04-10] MEDS: ASPIRIN 325 MG TABLET PO SCH (09:30)
[2019-04-10] MEDS: ENOXAPARIN SODIUM INJ 40 MG/0.4 ML DISP.SYRIN SUBCUT SCH (09:30)
[2019-04-10] MEDS: LISINOPRIL 10 MG TABLET PO SCH (09:30)
[2019-04-10] MEDS: INSULIN GLARGINE,HUM.REC.ANLOG 1,000 UNIT/10 ML VIAL SUBCUT SCH (10:21)
--- NOTE | 2019-04-10 10:28 | PDOC PROGRESS REPORT ---
Subjective Progress Note for:: 04/10/19 Subjective:: CHARLEE CHING is a 73 year old female past medical history of diabetes and peripheral arterial disease who presented to [facility] on 01/27/2019 was diagnosed with critical limb ischemia of bilateral lower extremity worse on the right side and subsequently was transferred to [facility] where she stayed until February 02 and received vascular intervention on bilateral lower extremities. Patient was discharged on February 02 and was asked to follow-up with the vascular surgeon on February 15, as per patient she followed up but was not seen by anybody and had to come back home. She is stating that she has been nonhealing wounds from the surgical sites on the bilateral lower extremities, with severe sharp, 9/10, sharp, constant pain of the lower extremities worse on the right side, with swelling and erythema of bilateral lower extremity worse on the right side. Patient is very upset and tearful stating that she did not get a proper follow- up and she has been in severe pain since the surgery. Denies any fever, chills, sob, chest pain, shortness of breath, headache, nausea, vomiting, diarrhea, constipation or any urinary symptoms. She is still ambulatory but with great difficulty. She lives alone and she is very upset about the fact that she cannot carry on her daily chores. In ED and x-ray of the right foot and venous Doppler did not show any acute ab normalities. On physical examination there are several surgical wounds as follow: one surgical over medial aspect the left thigh over femoral artery territory which looks clean but tender to palpation with mild erythema on the edges. Several surgical wounds on the right lower extremity. One over medial aspect the right thigh over femoral artery territory which looks clean but tender to palpation with mild erythema on the edges, one below the knee on medial aspect over the tibial artery, on over lateral medial malleolus over posterior tibial artery, one over dorsal aspect of the foot over dorsalis pedis artery. All Surgical wounds are tender to palpation, erythematous with mild swelling, but no active discharge. 04/08/2019. No acute events overnight. Patient is less anxious and is stating that her lower extremity pain is better than yesterday. Denies any fever, chills, nausea, vomiting, diarrhea, constipation or any urinary symptoms. Patient pending evaluation by surgery and right lower extremity arterial Doppler. 04/09/2019. Patient is still complaining of bilateral lower extremity pain however improved since admission. She has been evaluated by surgery and the recommendation is lower extremity arterial Doppler and if positive follow-up with vascular surgeon and negative follow-up will wound care as outpatient. Denies any fever, chills, nausea, vomiting, diarrhea, constipation or any urinary symptoms. 04/10/2019. No acute events overnight, still complaining of bilateral lower extremity pain worse on the right side, denies any fever, chills, nausea, vomiting, diarrhea, constipation or any urinary symptoms. Results of arterial Doppler study shows severe stenosis of the right lower extremity. Dr. Jamel Torres has been consulted and patient has been made aware of it. Reason For Visit: BLE PAIN,POST VASCULAR INTERVENTION Physical Exam Vital Signs: Temp Pulse Resp BP Pulse Ox 98.1 F 57 L 18 143/50 H 98 04/10/19 07:46 04/10/19 07:46 04/10/19 07:46 04/10/19 07:46 04/10/19 07:46 Intake & Output 04/09/19 04/10/19 04/11/19 06:59 06:59 06:59 Intake Total 1510 1383 Output Total 400 Balance 1510 983 Weight 61.9 kg 61.2 kg General appearance: PRESENT: no acute distress, well-developed, well-nourished Head exam: PRESENT: atraumatic, normocephalic Respiratory exam: PRESENT: clear to auscultation tom. ABSENT: rales, rhonchi, wheezes Cardiovascular exam: PRESENT: RRR. ABSENT: diastolic murmur, rubs, systolic murmur GI/Abdominal exam: PRESENT: normal bowel sounds, soft. ABSENT: distended, guarding, mass, organolmegaly, rebound, tenderness Extremities exam: PRESENT: full ROM, other - post operative wounds to RLE medial aspect above the knee. Appears be healing but tender and mild erythematous. No sign of infection.. ABSENT: calf tenderness, clubbing, pedal edema Neurological exam: PRESENT: alert, awake, oriented to person, oriented to place, oriented to time, oriented to situation, CN II-XII grossly intact. ABSENT: motor sensory deficit Results Laboratory Results: 04/08/19 03:58 04/08/19 03:58 04/09/19 10:32 Triglycerides 124 Cholesterol 207.73 H LDL Cholesterol Direct 111 H VLDL Cholesterol 25.0 HDL Cholesterol 56 Impressions: Foot X-Ray 04/07/19 12:05 IMPRESSION: NEGATIVE STUDY OF THE RIGHT FOOT. NO RADIOGRAPHIC EVIDENCE OF ACUTE INJURY. 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 No sign of infection. WBC WNL. CRP <5.0 ESR 30. Received 1 dose of vancomycin and Zosyn in ED. Switch to clindamycin IV. Day #4 of IV antibiotics. Day 4 clindamycin. Antibiotics could be DC'd after patient is being evaluated by Dr. Jamel Warner meanwhile continue empiric IV antibiotics, wound care, analgesics, follow-up cultures. General surgery has been consulted, they have evaluated patient and they recommend arterial Doppler and if positive follow-up with vascular surgeon at [facility] and if negative to follow-up with wound care as outpatient. 04/09/2019. Bilateral lower extremity arterial Doppler positive for severe hemodynamically significant lesions in the bilateral lower extremities at rest. Worse on the right side. 04/07/2019. Right foot x-ray and right lower extremity venous Doppler negative for any acute abnormalities. (2) Cellulitis Qualifiers: Site of cellulitis: extremity Site of cellulitis of extremity: lower extremity Laterality: right Qualified Code(s): L03.115 - Cellulitis of right lower limb Is this a current diagnosis for this admission?: Yes Plan: Surgical wound over dorsalis pedis on the right foot looks more erythematous with swelling and TTP. Afebrile, CMP, CBC WNL. ESR 30, CRP <5.0. X-ray negative for osteomyelitis. Empiric IV antibiotics, switch to once appropriate. 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 A1c > 10%. Increase metformin to thousand milligrams p.o. twice daily, glyburide 2.5 mg p.o. daily. Diabetic diet, long-acting insulin, pre-meal insulin, sliding scale insulin, Accu-Chek, hypoglycemia protocol. Adjust dosage as needed. Patient will need to be discharged on insulin. (4) PAD (peripheral artery disease) Is this a current diagnosis for this admission?: Yes Plan: Status post vascular intervention in January 2019. 04/09/2019. Bilateral lower extremity arterial Doppler positive for severe hemodynamically significant lesions in the bilateral lower extremities at rest. Worse on the right side. 04/07/2019. Right foot x-ray and right lower extremity venous Doppler negative for any acute abnormalities. Dr. Jamel Warner has been consulted. We will follow-up recommendation. Continue aspirin and statins. (5) Hyperlipidemia Is this a current diagnosis for this admission?: Yes Plan: ASCVD score of 43%. Diet and lifestyle modification advised. High intensity statins. Monitor LFTs. Outpatient PCP follow-up.
[2019-04-10] MEDS: OXYCODONE-ACETAMINOPHEN 5-325 MG TABLET PO PRN ×2 (15:53→23:00)
[2019-04-10] MEDS: COLLAGENASE CLOSTRIDIUM HIST. OINT 30 GM TOP SCH (16:32)
[2019-04-10] MEDS: ATORVASTATIN CALCIUM 40 MG TABLET PO SCH (22:54)
[2019-04-11] MEDS: CLINDAMYCIN 600 MG/D5W RTU 600 MG/50 ML RTUPB IV SCH ×3 (06:20→22:05)
[2019-04-11] MEDS: INSULIN LISPRO 100 UNIT/ML 3 ML VIAL SUBCUT SCH ×3 (07:51→17:30)
[2019-04-11] MEDS ORDERED: INSULIN GLARGINE,HUM.REC.ANLOG 1,000 UNIT/10 ML VIAL SUBCUT SCH ×2 (08:00→10:30)
[2019-04-11 08:13] LABS: ABSOLUTE BASOPHILS # (AUTO) 0.1 10^3/uL (0.0-0.2); ABSOLUTE LYMPHOCYTES (AUTO) 2.6 10^3/uL (0.5-4.7); ABSOLUTE MONOCYTES (AUTO) 0.4 10^3/uL (0.1-1.4); ABSOLUTE NEUT (AUTO) 2.1 10^3/uL (1.7-8.2); BASOPHILS % (AUTO) 1.3 % (0-2); HEMATOCRIT 38.2 % (36.0-47.0); HEMOGLOBIN 12.9 g/dL (12.0-15.5); LYMPHOCYTES % (AUTO) 49.8 % (13-45); MEAN CORPUSCULAR HEMOGLOBIN 28.4 pg (27.0-33.4); MEAN CORPUSCULAR HGB CONC 33.8 g/dL (32.0-36.0); MEAN CORPUSCULAR VOLUME 84 fl (80-97); MONOCYTES % (AUTO) 8.6 % (3-13); PLATELET COUNT 197 10^3/uL (150-450); RED BLOOD COUNT 4.55 10^6/uL (3.72-5.28); RED CELL DISTRIBUTION WIDTH 13.6 % (11.5-14.0); SEGMENTED NEUTROPHILS % (AUTO) 40.3 % (42-78); TOTAL CELLS COUNTED % (AUTO) 100 %; WHITE BLOOD COUNT 5.1 10^3/uL (4.0-10.5)
[2019-04-11 08:26] LABS: ALANINE AMINOTRANSFERASE 20 U/L (9-52); ALBUMIN 3.5 g/dL (3.5-5.0); ALKALINE PHOSPHATASE 72 U/L (38-126); ANION GAP 7 (5-19); ASPARTATE AMINO TRANSFERASE 17 U/L (14-36); BILIRUBIN,DIRECT 0.2 mg/dL (0.0-0.4); BILIRUBIN,TOTAL 0.3 mg/dL (0.2-1.3); BLOOD UREA NITROGEN 18 mg/dL (7-20); CALCIUM 9.8 mg/dL (8.4-10.2); CARBON DIOXIDE 27 mmol/L (22-30); CHLORIDE 104 mmol/L (98-107); GLUCOSE 147 mg/dL (75-110); POTASSIUM 4.4 mmol/L (3.6-5.0); SODIUM 138.1 mmol/L (137-145); TOTAL PROTEIN 6.3 g/dL (6.3-8.2)
--- NOTE | 2019-04-11 09:32 | PDOC PROGRESS REPORT ---
Subjective Progress Note for:: 04/11/19 Subjective:: 73 year old female past medical history of diabetes and peripheral arterial disease who presented to [facility] on 01/27/2019 was diagnosed with critical limb ischemia of bilateral lower extremity worse on the right side and subsequently was transferred to [facility] where she stayed until February 02 and received vascular intervention on bilateral lower extremities. Patient was discharged on February 02 and was asked to follow-up with the vascular surgeon on February 15, as per patient she followed up but was not seen by anybody and had to come back home. She is stating that she has been nonhealing wounds from the surgical sites on the bilateral lower extremities, with severe sharp, 9/10, sharp, constant pain of the lower extremities worse on the right side, with swelling and erythema of bilateral lower extremity worse on the right side. Patient is very upset and tearful stating that she did not get a proper follow- up and she has been in severe pain since the surgery. Denies any fever, chills, sob, chest pain, shortness of breath, headache, nausea, vomiting, diarrhea, constipation or any urinary symptoms. She is still ambulatory but with great difficulty. She lives alone and she is very upset about the fact that she cannot carry on her daily chores. In ED and x-ray of the right foot and venous Doppler did not show any acute abnormalities. On physical examination there are several surgical wounds as follow: one surgical over medial aspect the left thigh over femoral artery territory which looks clean but tender to palpation with mild erythema on the edges. Several surgical wounds on the right lower extremity. One over medial aspect the right thigh over femoral artery territory which looks clean but tender to palpation with mild erythema on the edges, one below the knee on medial aspect over the tibial artery, on over lateral medial malleolus over posterior tibial artery, one over dorsal aspect of the foot over dorsalis pedis artery. All Surgical wounds are tender to palpation, erythematous with mild swelling, but no active discharge. 04/08/2019. No acute events overnight. Patient is less anxious and is stating that her lower extremity pain is better than yesterday. Denies any fever, chills, nausea, vomiting, diarrhea, constipation or any urinary symptoms. Patient pending evaluation by surgery and right lower extremity arterial Doppler. 04/09/2019. Patient is still complaining of bilateral lower extremity pain how ever improved since admission. She has been evaluated by surgery and the recommendation is lower extremity arterial Doppler and if positive follow-up with vascular surgeon and negative follow-up will wound care as outpatient. Denies any fever, chills, nausea, vomiting, diarrhea, constipation or any urinary symptoms. 04/10/2019. No acute events overnight, still complaining of bilateral lower ext remity pain worse on the right side, denies any fever, chills, nausea, vomiting, diarrhea, constipation or any urinary symptoms. Results of arterial Doppler study shows severe stenosis of the right lower extremity. Dr. Jamel Torres has been consulted and patient has been made aware of it. 04/11/2019-20 still complaining of pain 9/10. In both lower extremities. She is on IV morphine 2 mg every 4 as needed and oxycodone 1 tablet every 6 as needed for pain still complaining of pain of 9/10. I spoke to Dr. Timmy Li he thinks optimal medical management is beneficial for the patient. He is also not sure whether right heel ulcer is going to heal are not. The arterial Doppler done during this hospital stay shows hemodynamically significant stenosis in both lower extremities. I called to [facility] requested the operated to give call to Dr. gallegos. As per the fluid jet cutter operator Dr. hurtado is presently in the OR. I spent more than 45 minutes with the patient explaining the plan of care. Reason For Visit: BLE PAIN,POST VASCULAR INTERVENTION Physical Exam Vital Signs: Temp Pulse Resp BP Pulse Ox 98.1 F 62 20 143/51 H 97 04/11/19 04:07 04/11/19 04:07 04/11/19 04:07 04/11/19 04:07 04/11/19 04:07 Intake & Output 04/10/19 04/11/19 04/12/19 06:59 06:59 06:59 Intake Total 1383 1250 50 Output Total 400 Balance 983 1250 50 Weight 61.2 kg 61.5 kg General appearance: PRESENT: other - Patient is in moderate distress complaining of pain in both lower extremities. Head exam: PRESENT: atraumatic Eye exam: PRESENT: PERRLA Ear exam: PRESENT: normal external ear exam Teeth exam: PRESENT: poor dentation Respiratory exam: PRESENT: clear to auscultation tom. ABSENT: rales, rhonchi, wheezes Cardiovascular exam: PRESENT: RRR. ABSENT: diastolic murmur, rubs, systolic murmur Vascular exam: PRESENT: other - The circulation in the lower extremity is extremely poor with dorsalis pedis minimally palpable in both feet. GI/Abdominal exam: PRESENT: normal bowel sounds, soft. ABSENT: distended, guarding, mass, organolmegaly, rebound, tenderness Rectal exam: PRESENT: deferred Extremities exam: PRESENT: other - Patient has a small right heel ulcer and also erythema on the dorsum of the right foot. Neurological exam: PRESENT: alert, awake, oriented to person, oriented to place, oriented to time, oriented to situation, CN II-XII grossly intact. ABSENT: motor sensory deficit Psychiatric exam: PRESENT: anxious Results Laboratory Results: 04/11/19 07:50 04/11/19 07:50 04/11/19 04/11/19 07:50 07:50 WBC 5.1 RBC 4.55 Hgb 12.9 Hct 38.2 MCV 84 MCH 28.4 MCHC 33.8 RDW 13.6 Plt Count 197 Seg Neutrophils % 40.3 L Lymphocytes % 49.8 H Monocytes % 8.6 Eosinophils % 0.0 Basophils % 1.3 Absolute Neutrophils 2.1 Absolute Lymphocytes 2.6 Absolute Monocytes 0.4 Absolute Eosinophils 0.0 Absolute Basophils 0.1 Sodium 138.1 Potassium 4.4 Chloride 104 Carbon Dioxide 27 Anion Gap 7 BUN 18 Creatinine 0.62 Est GFR ( Amer) > 60 Est GFR (Non-Af Amer) > 60 Glucose 147 H Calcium 9.8 Magnesium 1.6 Total Bilirubin 0.3 AST 17 ALT 20 Alkaline Phosphatase 72 Total Protein 6.3 Albumin 3.5 Impressions: Foot X-Ray 04/07/19 12:05 IMPRESSION: NEGATIVE STUDY OF THE RIGHT FOOT. NO RADIOGRAPHIC EVIDENCE OF ACUTE INJURY. Assessment and Plan - Diagnosis (1) Cellulitis Qualifiers: Site of cellulitis: extremity Site of cellulitis of extremity: lower extremity Laterality: right Qualified Code(s): L03.115 - Cellulitis of right lower limb Is this a current diagnosis for this admission?: Yes Plan: Surgical wound over dorsalis pedis on the right foot looks more erythematous with swelling and TTP. Afebrile, CMP, CBC WNL. ESR 30, CRP <5.0. X-ray negative for osteomyelitis. Empiric IV antibiotics, switch to once appropriate. Follw up wound culture 04/11/2019-redness with scab over the right foot erythematous with mild swelling. Patient T-max is 98.1. Complaining of pain of 9/10. X-rays are negative for osteomyelitis. blood Cultures are pending. Shunt is presently on clindamycin IV 600 mg every 8 hours. I spoke to Dr. Jamel Torres's recommendation is optimization of the medical management. Also placed call to Dr. gallegos to discuss the further plan of care. (2) Surgical wound, non healing Qualifiers: Encounter type: initial encounter Qualified Code(s): T81.89XA - Other complications of procedures, not elsewhere classified, initial encounter Is this a current diagnosis for this admission?: Yes Plan: Mild improvement but mud mill tender and erythematous. No sign of infection. WBC WNL. CRP <5.0 ESR 30. Received 1 dose of vancomycin and Zosyn in ED. Switch to clindamycin IV. Day #4 of IV antibiotics. Day 4 clindamycin. Antibiotics could be DC'd after patient is being evaluated by Dr. Jamel Warner meanwhile continue empiric IV antibiotics, wound care, analgesics, follow-up cultures. General surgery has been consulted, they have evaluated patient and they recommend arterial Doppler and if positive follow-up with vascular surgeon at [facility] and if negative to follow-up with wound care as outpatient. 04/09/2019. Bilateral lower extremity arterial Doppler positive for severe hemodynamically significant lesions in the bilateral lower extremities at rest. Worse on the right side. 04/07/2019. Right foot x-ray and right lower extremity venous Doppler negative for any acute abnormalities. 04/11/2019-right foot x-ray is negative for osteomyelitis. Venous Dopplers negative for DVTs. Arterial Doppler indicates severe hemodynamically significant stenosis in both lower extremities. 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 A1c > 10%. Increase metformin to thousand milligrams p.o. twice daily, glyburide 2.5 mg p .o. daily. Diabetic diet, long-acting insulin, pre-meal insulin, sliding scale insulin, Accu-Chek, hypoglycemia protocol. Adjust dosage as needed. Patient will need to be discharged on insulin. 04/11/2019-patient has history of type 2 diabetes mellitus hemoglobin A1c is more than 10 presently on metformin thousand milligrams twice a day glyburide 2.5 mg p.o. daily, insulin sliding scale. To hold metformin in case we need angiogram. Dietary consult was requested. (4) PAD (peripheral artery disease) Is this a current diagnosis for this admission?: Yes Plan: Status post vascular intervention in January 2019. 04/09/2019. Bilateral lower extremity arterial Doppler positive for severe hemodynamically significant lesions in the bilateral lower extremities at rest. Worse on the right side. 04/07/2019. Right foot x-ray and right lower extremity venous Doppler negative for any acute abnormalities. Dr. aJmel Warner has been consulted. We will follow-up recommendation. Continue aspirin and statins. 04/11/2019-patient is on aspirin and statins. Blood pressure is well controlled around 140/81. Blood sugar is 147. X-rays are negative for acute pathology like osteomyelitis. Continue to complaining of severe pains in the lower extremities pain scale 9/10. Presently on oxycodone 1 tablet every 6 hours and IV morphine 2 mg every 4 hours as needed. Plan is to continue the present management. (5) Hyperlipidemia Is this a current diagnosis for this admission?: Yes Plan: ASCVD score of 43%. Diet and lifestyle modification advised. High intensity statins. Monitor LFTs. Outpatient PCP follow-up. 04/11/2019-patient is presently on atorvastatin 40 mg p.o. daily. Total cholesterol is 207.73. Triglycerides 124. VLDL cholesterol is 25. HDL is 26. LDL is 111. - Time Time Spent with patient: 25-34 minutes Medications reviewed and adjusted accordingly: Yes Anticipated discharge: Acute Rehab
[2019-04-11] MEDS: DOCUSATE SODIUM 100 MG CAPSULE PO SCH ×2 (09:39→17:29)
[2019-04-11] MEDS: METFORMIN HCL 500 MG TABLET PO SCH (09:39)
[2019-04-11] MEDS: INSULIN GLARGINE,HUM.REC.ANLOG 1,000 UNIT/10 ML VIAL SUBCUT SCH ×2 (09:40→22:05)
[2019-04-11] MEDS: ASPIRIN 325 MG TABLET PO SCH (09:47)
[2019-04-11] MEDS: LISINOPRIL 10 MG TABLET PO SCH (09:47)
[2019-04-11] MEDS: FAMOTIDINE 20 MG TABLET PO SCH ×2 (09:47→22:05)
[2019-04-11] MEDS: GLIPIZIDE XL 2.5 MG TAB.ER.24 PO SCH (09:47)
[2019-04-11] MEDS: COLLAGENASE CLOSTRIDIUM HIST. OINT 30 GM TOP SCH (09:48)
[2019-04-11] MEDS: ENOXAPARIN SODIUM INJ 40 MG/0.4 ML DISP.SYRIN SUBCUT SCH (09:48)
[2019-04-11] MEDS ORDERED: ONDANSETRON HCL INJ/PF 4 MG/2 ML SDV IV PRN (10:30)
--- NOTE | 2019-04-11 11:51 | PDOC CONSULTATION ---
Consultation Consult Date: 04/10/19 Provider Consulted: MELANIE ALEMAN Consult reason:: Lower extremity pain. History of Present Illness Admission Date/PCP: 04/08/19 14:59 History of Present Illness: CHARLEE CHING is a 73 year old female Past Medical History Cardiac Medical History: Reports: Coronary Artery Disease, DVT Denies: Myocardial Infarction, Hyperlipidema, Hypertension Pulmonary Medical History: Reports: None Denies: Asthma EENT Medical History: Reports: None Neurological Medical History: Reports: None Denies: Seizures Endocrine Medical History: Reports: Diabetes Mellitus Type 2 Renal/ Medical History: Reports: None Malignancy Medical History: Reports: Breast Cancer GI Medical History: Reports: None Denies: Hepatitis, Hiatal Hernia Musculoskeltal Medical History: Reports: None Psychiatric Medical History: Reports: None Traumatic Medical History: Reports: None Hematology: Denies: Anemia, Sickle Cell Disease Infectious Medical History: Reports: None Past Surgical History Past Surgical History: Reports: Coronary Stent, Mastectomy - RIGHT,RESTRICTED, Vascular Surgery - lower extremities at Replaced by [facility] Denies: Amputation, Hysterectomy, Pacemaker Social History Smoking Status: Unknown if Ever Smoked Frequency of Alcohol Use: None Hx Recreational Drug Use: No Drugs: None Hx Prescription Drug Abuse: No Family History Family History: Reviewed & Not Pertinent Parental Family History Reviewed: No Children Family History Reviewed: No Sibling(s) Family History Reviewed.: No Medication/Allergy Home Medications: Aspirin [Aspirin 325 mg Tablet] 325 mg PO DAILY 04/07/19 Glipizide [Glucotrol Xl 2.5 mg Tab.er] 2.5 mg PO DAILY 04/07/19 Metformin HCl [Glucophage XR 500 mg Tablet] 500 mg PO DAILY 04/07/19 Allergies/Adverse Reactions: No Known Allergies Allergy (Verified 04/07/19 11:30) Physical Exam Vital Signs: Temp Pulse Resp BP Pulse Ox 98.0 F 65 16 135/52 H 98 04/10/19 10:41 04/10/19 10:41 04/10/19 10:41 04/10/19 10:41 04/10/19 10:41 Intake & Output 04/09/19 04/10/19 04/11/19 06:59 06:59 06:59 Intake Total 1510 1383 50 Output Total 400 Balance 1510 983 50 Weight 61.9 kg 61.2 kg Additional comments: Constitutional: Well-developed well-nourished -[place] lady. No apparent acute distress. Well-groomed. Eyes: Mucous membranes pink and moist, pupils equal and reactive to light. Conjunctiva normal. Cornea normal. Respiratory: Normal respiratory effort. Skin: Normal to inspection. No ulcers, normal turgor. Psychiatric: Judgment, memory, insight seem normal. Mood is pleasant and appropriate. Extremities: Upper extremities show normal range of movement. Pulses present noted to the radial arteries. Capillary refill normal. No cyanosis noted. No muscle wasting noted. Lower extremities show almost normal range of movement. Pulses not felt the dorsalis pedis artery. Capillary refill reduced. No cyanosis noted. No muscle wasting noted. Rubor on dependency noted. Longitudinal ulcer in the dorsum of the right foot about 3 cm by about 0.2 cm in diameter. Superficial but nec rotic. Results Laboratory Results: 04/08/19 03:58 04/08/19 03:58 Impressions: Foot X-Ray 04/07/19 12:05 IMPRESSION: NEGATIVE STUDY OF THE RIGHT FOOT. NO RADIOGRAPHIC EVIDENCE OF ACUTE INJURY. Assessment & Plan - Diagnosis (2) Diabetes mellitus, type II Qualifiers: Diabetes mellitus prison insulin use: unspecified manager intermediate insulin use status Diabetes mellitus complication status: with skin complications Diabetes mellitus complication detail: with other skin complication Qualified Code(s): E11.628 - Type 2 diabetes mellitus with other skin complications Is this a current diagnosis for this admission?: Yes (3) PAD (peripheral artery disease) Is this a current diagnosis for this admission?: Yes - Plan Summary Plan Summary: This is a complex case with the patient being diabetic, no history of tobacco use who had open and endovascular surgery in the right lower extremity on January 29 at [facility]. Thromboembolectomy was done. Currently the patient has rubor on dependency, decreased capillary refill bilaterally, and the ulcer of the right foot, dorsum. Ultrasound duplex shows severe multilevel peripheral vascular disease bilaterally. This is compatible with chronic severe ischemia. An apparently diligent attempt at revascularization was done at [facility]. Recent duplex study suggests that this is not holding up long-term. Probably medical management with tight control of diabetes, hypertension, use of antiplatelets and possibly low-level anticoagulation is the mainstay of therapy. Further vascular intervention seems unlikely to be of benefit. I will try to get in touch with the [facility] team to see whether any further intervention is possible.
[2019-04-11] MEDS ORDERED: CILOSTAZOL 100 MG TABLET PO SCH (16:00)
[2019-04-11] MEDS: ATORVASTATIN CALCIUM 40 MG TABLET PO SCH (22:05)
[2019-04-12] MEDS: CLINDAMYCIN 600 MG/D5W RTU 600 MG/50 ML RTUPB IV SCH ×3 (05:27→22:10)
[2019-04-12] MEDS: INSULIN LISPRO 100 UNIT/ML 3 ML VIAL SUBCUT SCH ×3 (07:44→17:13)
--- NOTE | 2019-04-12 08:52 | PDOC PROGRESS REPORT ---
Subjective Progress Note for:: 04/12/19 Subjective:: 73 year old female past medical history of diabetes and peripheral arterial disease who presented to [facility] on 01/27/2019 was diagnosed with critical limb ischemia of bilateral lower extremity worse on the right side and subsequently was transferred to [facility] where she stayed until February 02 and received vascular intervention on bilateral lower extremities. Patient was discharged on February 02 and was asked to follow-up with the vascular surgeon on February 15, as per patient she followed up but was not seen by anybody and had to come back home. She is stating that she has been nonhealing wounds from the surgical sites on the bilateral lower extremities, with severe sharp, 9/10, sharp, constant pain of the lower extremities worse on the right side, with swelling and erythema of bilateral lower extremity worse on the right side. Patient is very upset and tearful stating that she did not get a proper follow- up and she has been in severe pain since the surgery. Denies any fever, chills, sob, chest pain, shortness of breath, headache, nausea, vomiting, diarrhea, constipation or any urinary symptoms. She is still ambulatory but with great difficulty. She lives alone and she is very upset about the fact that she cannot carry on her daily chores. In ED and x-ray of the right foot and venous Doppler did not show any acute abnormalities. On physical examination there are several surgical wounds as follow: one surgical over medial aspect the left thigh over femoral artery territory which looks clean but tender to palpation with mild erythema on the edges. Several surgical wounds on the right lower extremity. One over medial aspect the right thigh over femoral artery territory which looks clean but tender to palpation with mild erythema on the edges, one below the knee on medial aspect over the tibial artery, on over lateral medial malleolus over posterior tibial artery, one over dorsal aspect of the foot over dorsalis pedis artery. All Surgical wounds are tender to palpation, erythematous with mild swelling, but no active discharge. 04/08/2019. No acute events overnight. Patient is less anxious and is stating that her lower extremity pain is better than yesterday. Denies any fever, chills, nausea, vomiting, diarrhea, constipation or any urinary symptoms. Patient pending evaluation by surgery and right lower extremity arterial Doppler. 04/09/2019. Patient is still complaining of bilateral lower extremity pain how ever improved since admission. She has been evaluated by surgery and the recommendation is lower extremity arterial Doppler and if positive follow-up with vascular surgeon and negative follow-up will wound care as outpatient. Denies any fever, chills, nausea, vomiting, diarrhea, constipation or any urinary symptoms. 04/10/2019. No acute events overnight, still complaining of bilateral lower ext remity pain worse on the right side, denies any fever, chills, nausea, vomiting, diarrhea, constipation or any urinary symptoms. Results of arterial Doppler study shows severe stenosis of the right lower extremity. Dr. Jamel Torres has been consulted and patient has been made aware of it. 04/11/2019-still complaining of pain 9/10. In both lower extremities. She is on IV morphine 2 mg every 4 as needed and oxycodone 1 tablet every 6 as needed for pain still complaining of pain of 9/10. I spoke to Dr. Timmy Li he thinks optimal medical management is beneficial for the patient. He is also not sure whether right heel ulcer is going to heal are not. The arterial Doppler done during this hospital stay shows hemodynamically significant stenosis in both lower extremities. I called to [facility] requested the operated to give call to Dr. gallegos. 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 hurtado is presently in the OR. I spent more than 45 minutes with the patient explaining the plan of care. [id number]-old female admitted for severe lower leg pains because of atherosclerosis peripheral vascular disease. She has bilateral lower leg surgery and [facility]. Patient is complaining still having the pains of the surgery. I spoke to Dr. Genevieve gallegos's recommendation is to continue Eliquis because she is throwing emboli and would like to see her in the office in few days. Patient is still complaining of pain scale of 9/10 presently on morphine and oxycodone. To add Lyrica 75 mg p.o. twice daily plus the present medication. No acute events in the last 24 hours. Afebrile. Reason For Visit: BLE PAIN,POST VASCULAR INTERVENTION Physical Exam Vital Signs: Temp Pulse Resp BP Pulse Ox 97.9 F 77 18 114/46 L 95 04/12/19 02:59 04/12/19 02:59 04/12/19 02:59 04/12/19 02:59 04/12/19 02:59 Intake & Output 04/11/19 04/12/19 04/13/19 06:59 06:59 06:59 Intake Total 1250 1604 Balance 1250 1604 Weight 61.5 kg 139.3 kg General appearance: PRESENT: mild distress, well-developed Head exam: PRESENT: atraumatic Eye exam: PRESENT: PERRLA Mouth exam: PRESENT: moist, tongue midline Teeth exam: PRESENT: poor dentation Neck exam: ABSENT: carotid bruit, JVD, lymphadenopathy, thyromegaly Respiratory exam: PRESENT: decreased breath sounds Cardiovascular exam: PRESENT: RRR. ABSENT: diastolic murmur, rubs, systolic murmur GI/Abdominal exam: PRESENT: normal bowel sounds, soft. ABSENT: distended, guarding, mass, organolmegaly, rebound, tenderness Rectal exam: PRESENT: deferred Extremities exam: PRESENT: full ROM, other - Poor peripheral circulation with a nonhealing wound on the right heel. She has a scab on the right foot.. ABSENT: calf tenderness, clubbing, pedal edema Neurological exam: PRESENT: alert, awake, oriented to person, oriented to place, oriented to time, oriented to situation, CN II-XII grossly intact. ABSENT: motor sensory deficit Psychiatric exam: PRESENT: appropriate affect, normal mood. ABSENT: homicidal ideation, suicidal ideation Results Laboratory Results: 04/11/19 07:50 04/11/19 07:50 Impressions: Foot X-Ray 04/07/19 12:05 IMPRESSION: NEGATIVE STUDY OF THE RIGHT FOOT. NO RADIOGRAPHIC EVIDENCE OF ACUTE INJURY. Assessment and Plan - Diagnosis (1) Cellulitis Qualifiers: Site of cellulitis: extremity Site of cellulitis of extremity: lower extremity Laterality: right Qualified Code(s): L03.115 - Cellulitis of right lower limb Is this a current diagnosis for this admission?: Yes Plan: Surgical wound over dorsalis pedis on the right foot looks more erythematous with swelling and TTP. Afebrile, CMP, CBC WNL. ESR 30, CRP <5.0. X-ray negative for osteomyelitis. Empiric IV antibiotics, switch to once appropriate. Follw up wound culture 04/11/2019-redness with scab over the right foot erythematous with mild swelling. Patient T-max is 98.1. Complaining of pain of 9/10. X-rays are negative for osteomyelitis. blood Cultures are pending. presently is presently on cl indamycin IV 600 mg every 8 hours. I spoke to Dr. Jamel Torres's recommendation is optimization of the medical management. Also placed call to Dr. gallegos to discuss the further plan of care. Presently on IV clindamycin 600 mg every 8 hours. 04/12/2019-patient admitted with cellulitis to right foot. Still looks erythematous swelling is resolved. T-max is 97.8. Presently on IV clindamycin 60 mg every 8 hours. Blood cultures are negative. Started on Eliquis today. And also started on Lyrica 75 mg p.o. twice daily for low leg pains. 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 No sign of infection. WBC WNL. CRP <5.0 ESR 30. Received 1 dose of vancomycin and Zosyn in ED. Switch to clindamycin IV. Day #4 of IV antibiotics. Day 4 clindamycin. Antibiotics could be DC'd after patient is being evaluated by Dr. Jamel Warner meanwhile continue empiric IV antibiotics, wound care, analgesics, follow-up cultures. General surgery has been consulted, they have evaluated patient and they recomme nd arterial Doppler and if positive follow-up with vascular surgeon at [facility] and if negative to follow-up with wound care as outpatient. 04/09/2019. Bilateral lower extremity arterial Doppler positive for severe hemodynamically significant lesions in the bilateral lower extremities at rest. Worse on the right side. 04/07/2019. Right foot x-ray and right lower extremity venous Doppler negative for any acute abnormalities. 04/11/2019-right foot x-ray is negative for osteomyelitis. Venous Dopplers negative for DVTs. Arterial Doppler indicates severe hemodynamically significant stenosis in both lower extremities. 04/12/2019-presently on IV clindamycin blood cultures are negative afebrile. Arterial Doppler indicates severe hemodynamically significant stenosis in both lower extremities. I spoke to Dr. Bullock he said he is going to follow-up the patient in his office in 1 week. And is recommended to restart Eliquis during the hospital stay. Patient says she is taking Eliquis at home. 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 A1c > 10%. Increase metformin to thousand milligrams p.o. twice daily, glyburide 2.5 mg p.o. daily. Diabetic diet, long-acting insulin, pre-meal insulin, sliding scale insulin, Accu-Chek, hypoglycemia protocol. Adjust dosage as needed. Patient will need to be discharged on insulin. 04/11/2019-patient has history of type 2 diabetes mellitus hemoglobin A1c is more than 10 presently on metformin thousand milligrams twice a day glyburide 2.5 mg p.o. daily, insulin sliding scale. To hold metformin in case we need angiogram. Dietary consult was requested. 04/12/2019-latest blood sugar is 200 hemoglobin A1c is more than 10 presently on Lantus 18 units in the morning glipizide 2.5 mg daily and insulin sliding scale. Plan is to increase glipizide to 2.5 mg p.o. twice daily. (4) PAD (peripheral artery disease) Is this a current diagnosis for this admission?: Yes Plan: Status post vascular intervention in January 2019. 04/09/2019. Bilateral lower extremity arterial Doppler positive for severe hemodynamically significant lesions in the bilateral lower extremities at rest. Worse on the right side. 04/07/2019. Right foot x-ray and right lower extremity venous Doppler negative for any acute abnormalities. Dr. Jamel Warner has been consulted. We will follow-up recommendation. Continue aspirin and statins. 04/11/2019-patient is on aspirin and statins. Blood pressure is well controlled around 140/81. Blood sugar is 147. X-rays are negative for acute pathology like osteomyelitis. Continue to complaining of severe pains in the lower extremities pain scale 9/10. Presently on oxycodone 1 tablet every 6 hours and IV morphine 2 mg every 4 hours as needed. Plan is to continue the present manag ement. 04/12/2019-patient is presently on aspirin and statins blood pressure is 115/74 well-controlled latest blood sugar is 200 to increase glipizide to 2.5 mg p.o. twice daily. Presently on morphine and oxycodone started on Lyrica 75 mg p.o. twice daily. We are going to arrange for referral to pain management as an outpatient. (5) Hyperlipidemia Is this a current diagnosis for this admission?: Yes - Time Time Spent with patient: 35 or more minutes Medications reviewed and adjusted accordingly: Yes Anticipated discharge: Home
[2019-04-12] MEDS: DOCUSATE SODIUM 100 MG CAPSULE PO SCH ×2 (10:38→17:07)
[2019-04-12] MEDS: APIXABAN 5 MG TABLET PO SCH ×2 (10:45→17:12)
[2019-04-12] MEDS: INSULIN GLARGINE,HUM.REC.ANLOG 1,000 UNIT/10 ML VIAL SUBCUT SCH ×2 (10:46→22:08)
[2019-04-12] MEDS: LISINOPRIL 10 MG TABLET PO SCH (10:46)
[2019-04-12] MEDS: ASPIRIN 325 MG TABLET PO SCH (10:46)
[2019-04-12] MEDS: MAGNESIUM OXIDE 400 MG TABLET PO SCH ×2 (10:46→17:12)
[2019-04-12] MEDS: FAMOTIDINE 20 MG TABLET PO SCH ×2 (10:46→22:07)
[2019-04-12] MEDS: PREGABALIN 75 MG CAPSULE PO SCH ×2 (10:46→17:13)
[2019-04-12] MEDS: GLIPIZIDE XL 2.5 MG TAB.ER.24 PO SCH ×2 (10:47→17:13)
[2019-04-12] MEDS: ATORVASTATIN CALCIUM 40 MG TABLET PO SCH (22:07)
[2019-04-13] MEDS: CLINDAMYCIN 600 MG/D5W RTU 600 MG/50 ML RTUPB IV SCH (05:27)
[2019-04-13] MEDS: INSULIN LISPRO 100 UNIT/ML 3 ML VIAL SUBCUT SCH ×3 (08:03→16:11)
[2019-04-13 08:12] LABS: ABSOLUTE LYMPHOCYTES (AUTO) 2.4 10^3/uL (0.5-4.7); ABSOLUTE MONOCYTES (AUTO) 0.6 10^3/uL (0.1-1.4); ABSOLUTE NEUT (AUTO) 2.5 10^3/uL (1.7-8.2); BASOPHILS % (AUTO) 0.5 % (0-2); HEMATOCRIT 38.5 % (36.0-47.0); HEMOGLOBIN 12.9 g/dL (12.0-15.5); LYMPHOCYTES % (AUTO) 43.3 % (13-45); MEAN CORPUSCULAR HEMOGLOBIN 28.3 pg (27.0-33.4); MEAN CORPUSCULAR HGB CONC 33.5 g/dL (32.0-36.0); MEAN CORPUSCULAR VOLUME 84 fl (80-97); MONOCYTES % (AUTO) 10.3 % (3-13); PLATELET COUNT 225 10^3/uL (150-450); RED BLOOD COUNT 4.57 10^6/uL (3.72-5.28); RED CELL DISTRIBUTION WIDTH 13.5 % (11.5-14.0); SEGMENTED NEUTROPHILS % (AUTO) 45.9 % (42-78); TOTAL CELLS COUNTED % (AUTO) 100 %; WHITE BLOOD COUNT 5.5 10^3/uL (4.0-10.5)
[2019-04-13 08:43] LABS: ALANINE AMINOTRANSFERASE 19 U/L (9-52); ALBUMIN 3.7 g/dL (3.5-5.0); ALKALINE PHOSPHATASE 74 U/L (38-126); ANION GAP 8 (5-19); ASPARTATE AMINO TRANSFERASE 21 U/L (14-36); BILIRUBIN,DIRECT 0.2 mg/dL (0.0-0.4); BILIRUBIN,TOTAL 0.2 mg/dL (0.2-1.3); BLOOD UREA NITROGEN 23 mg/dL (7-20); CALCIUM 9.7 mg/dL (8.4-10.2); CARBON DIOXIDE 27 mmol/L (22-30); CHLORIDE 105 mmol/L (98-107); GLUCOSE 173 mg/dL (75-110); POTASSIUM 4.6 mmol/L (3.6-5.0); SODIUM 139.9 mmol/L (137-145); TOTAL PROTEIN 6.4 g/dL (6.3-8.2)
[2019-04-13] MEDS: MAGNESIUM OXIDE 400 MG TABLET PO SCH ×2 (09:45→17:37)
[2019-04-13] MEDS: PREGABALIN 75 MG CAPSULE PO SCH ×2 (09:45→17:37)
[2019-04-13] MEDS: FAMOTIDINE 20 MG TABLET PO SCH ×2 (09:45→21:34)
[2019-04-13] MEDS: DOCUSATE SODIUM 100 MG CAPSULE PO SCH ×2 (09:45→17:36)
[2019-04-13] MEDS: LISINOPRIL 10 MG TABLET PO SCH (09:45)
[2019-04-13] MEDS: INSULIN GLARGINE,HUM.REC.ANLOG 1,000 UNIT/10 ML VIAL SUBCUT SCH ×2 (09:45→21:34)
[2019-04-13] MEDS: ASPIRIN 325 MG TABLET PO SCH (09:45)
[2019-04-13] MEDS: GLIPIZIDE XL 2.5 MG TAB.ER.24 PO SCH ×2 (09:45→17:38)
[2019-04-13] MEDS: APIXABAN 5 MG TABLET PO SCH ×2 (09:45→17:37)
--- NOTE | 2019-04-13 11:32 | PDOC PROGRESS REPORT ---
Subjective Progress Note for:: 04/13/19 Subjective:: 73 year old female past medical history of diabetes and peripheral arterial disease who presented to [facility] on 01/27/2019 was diagnosed with critical limb ischemia of bilateral lower extremity worse on the right side and subsequently was transferred to [facility] where she stayed until February 02 and received vascular intervention on bilateral lower extremities. Patient was discharged on February 02 and was asked to follow-up with the vascular surgeon on February 15, as per patient she followed up but was not seen by anybody and had to come back home. She is stating that she has been nonhealing wounds from the surgical sites on the bilateral lower extremities, with severe sharp, 9/10, sharp, constant pain of the lower extremities worse on the right side, with swelling and erythema of bilateral lower extremity worse on the right side. Patient is very upset and tearful stating that she did not get a proper follow- up and she has been in severe pain since the surgery. Denies any fever, chills, sob, chest pain, shortness of breath, headache, nausea, vomiting, diarrhea, constipation or any urinary symptoms. She is still ambulatory but with great difficulty. She lives alone and she is very upset about the fact that she cannot carry on her daily chores. In ED and x-ray of the right foot and venous Doppler did not show any acute abnormalities. On physical examination there are several surgical wounds as follow: one surgical over medial aspect the left thigh over femoral artery territory which looks clean but tender to palpation with mild erythema on the edges. Several surgical wounds on the right lower extremity. One over medial aspect the right thigh over femoral artery territory which looks clean but tender to palpation with mild erythema on the edges, one below the knee on medial aspect over the tibial artery, on over lateral medial malleolus over posterior tibial artery, one over dorsal aspect of the foot over dorsalis pedis artery. All Surgical wounds are tender to palpation, erythematous with mild swelling, but no active discharge. 04/08/2019. No acute events overnight. Patient is less anxious and is stating that her lower extremity pain is better than yesterday. Denies any fever, chills, nausea, vomiting, diarrhea, constipation or any urinary symptoms. Patient pending evaluation by surgery and right lower extremity arterial Doppler. 04/09/2019. Patient is still complaining of bilateral lower extremity pain how ever improved since admission. She has been evaluated by surgery and the recommendation is lower extremity arterial Doppler and if positive follow-up with vascular surgeon and negative follow-up will wound care as outpatient. Denies any fever, chills, nausea, vomiting, diarrhea, constipation or any urinary symptoms. 04/10/2019. No acute events overnight, still complaining of bilateral lower ext remity pain worse on the right side, denies any fever, chills, nausea, vomiting, diarrhea, constipation or any urinary symptoms. Results of arterial Doppler study shows severe stenosis of the right lower extremity. Dr. Jamel Torres has been consulted and patient has been made aware of it. 04/11/2019-still complaining of pain 9/10. In both lower extremities. She is on IV morphine 2 mg every 4 as needed and oxycodone 1 tablet every 6 as needed for pain still complaining of pain of 9/10. I spoke to Dr. Timmy Li he thinks optimal medical management is beneficial for the patient. He is also not sure whether right heel ulcer is going to heal are not. The arterial Doppler done during this hospital stay shows hemodynamically significant stenosis in both lower extremities. I called to [facility] requested the operated to give call to Dr. gallegos. As per the operator lights Dr. hurtado is presently in the OR. I spent more than 45 minutes with the patient explaining the plan of care. 04/12/[id number]-vdhb-old female admitted for severe lower leg pains because of atherosclerosis peripheral vascular disease. She has bilateral lower leg surgery and [facility]. Patient is complaining still having the pains of the surgery. I spoke to Dr. Genevieve gallegos's recommendation is to continue Eliquis because she is throwing emboli and would like to see her in the office in few days. Patient is still complaining of pain scale of 9/10 presently on morphine and oxycodone. To add Lyrica 75 mg p.o. twice daily plus the present medication. No acute events in the last 24 hours. Afebrile. 04/[id number]-ihhh-old female admitted with the severe bilateral leg pains due to severe peripheral vascular disease. She still in pain. She was started on Eliquis yesterday and Lyrica 75 mg p.o. twice daily she is also on Percocet and morphine. Lyrica dose is going to be increased to 150 twice daily. She still complaining of pain. Explained to her that may be will arrange for outpatient pain clinic management. No acute events in the last 24 hours. Afebrile. Reason For Visit: BLE PAIN,POST VASCULAR INTERVENTION Physical Exam Vital Signs: Temp Pulse Resp BP Pulse Ox 98.0 F 60 16 144/55 H 100 04/13/19 07:57 04/13/19 07:57 04/13/19 07:57 04/13/19 07:57 04/13/19 07:57 Intake & Output 04/12/19 04/13/19 04/14/19 06:59 06:59 06:59 Intake Total 1604 1180 50 Balance 1604 1180 50 Weight 139.3 kg 61 kg General appearance: PRESENT: no acute distress Eye exam: PRESENT: PERRLA Mouth exam: PRESENT: moist, tongue midline Neck exam: ABSENT: carotid bruit, JVD, lymphadenopathy, thyromegaly Respiratory exam: PRESENT: decreased breath sounds Cardiovascular exam: PRESENT: RRR. ABSENT: diastolic murmur, rubs, systolic murmur GI/Abdominal exam: PRESENT: normal bowel sounds, soft. ABSENT: distended, guarding, mass, organolmegaly, rebound, tenderness Rectal exam: PRESENT: deferred Extremities exam: PRESENT: full ROM. ABSENT: calf tenderness, clubbing, pedal edema Neurological exam: PRESENT: alert, awake, oriented to person, oriented to place, oriented to time, oriented to situation, CN II-XII grossly intact. ABSENT: motor sensory deficit Psychiatric exam: PRESENT: appropriate affect, normal mood. ABSENT: homicidal ideation, suicidal ideation Results Laboratory Results: 04/13/19 07:25 04/13/19 07:25 04/13/19 04/13/19 07:25 07:25 WBC 5.5 RBC 4.57 Hgb 12.9 Hct 38.5 MCV 84 MCH 28.3 MCHC 33.5 RDW 13.5 Plt Count 225 Seg Neutrophils % 45.9 Lymphocytes % 43.3 Monocytes % 10.3 Eosinophils % 0.0 Basophils % 0.5 Absolute Neutrophils 2.5 Absolute Lymphocytes 2.4 Absolute Monocytes 0.6 Absolute Eosinophils 0.0 Absolute Basophils 0.0 Sodium 139.9 Potassium 4.6 Chloride 105 Carbon Dioxide 27 Anion Gap 8 BUN 23 H Creatinine 0.67 Est GFR ( Amer) > 60 Est GFR (Non-Af Amer) > 60 Glucose 173 H Calcium 9.7 Magnesium 2.0 Total Bilirubin 0.2 AST 21 ALT 19 Alkaline Phosphatase 74 Total Protein 6.4 Albumin 3.7 04/07/19 20:45 Blood Blood Culture - Final NO GROWTH IN 5 DAYS 04/07/19 19:00 Blood Blood Culture - Final NO GROWTH IN 5 DAYS Impressions: Foot X-Ray 04/07/19 12:05 IMPRESSION: NEGATIVE STUDY OF THE RIGHT FOOT. NO RADIOGRAPHIC EVIDENCE OF ACUTE INJURY. Assessment and Plan - Diagnosis (1) Cellulitis Qualifiers: Site of cellulitis: extremity Site of cellulitis of extremity: lower extremity Laterality: right Qualified Code(s): L03.115 - Cellulitis of right lower limb Is this a current diagnosis for this admission?: Yes Plan: Surgical wound over dorsalis pedis on the right foot looks more erythematous wit h swelling and TTP. Afebrile, CMP, CBC WNL. ESR 30, CRP <5.0. X-ray negative for osteomyelitis. Empiric IV antibiotics, switch to once appropriate. Follw up wound culture 04/11/2019-redness with scab over the right foot erythematous with mild swelling. Patient T-max is 98.1. Complaining of pain of 9/10. X-rays are negative for osteomyelitis. blood Cultures are pending. presently is presently on clindamycin IV 600 mg every 8 hours[address] I spoke to Dr. Jamel Torres's recommendation is optimization of the medical management. Also placed call to Dr. gallegos to discuss the further plan of care. Presently on IV clindamycin 600 mg every 8 hours. 04/12/2019-patient admitted with cellulitis to right foot. Still looks erythematous swelling is resolved. T-max is 97.8. Presently on IV clindamycin 60 mg every 8 hours. Blood cultures are negative. Started on Eliquis today. And also started on Lyrica 75 mg p.o. twice daily for low leg pains. 04/13/2019-. 73-year-old female admitted with bilateral lower leg pain and right foot redness. There is a scab zak on the right dorsum of the foot and a nonhealing ulcer on the right heel. Presently receiving IV clindamycin. Blood cultures are negative. Plan is to continue the present management probably discharge tomorrow. (2) Surgical wound, non healing Qualifiers: Encounter type: initial encounter Qualified Code(s): T81.89XA - Other complications of procedures, not elsewhere classified, initial encounter Is this a current diagnosis for this admission?: Yes Plan: Mild improvement but crystalizer tender and erythematous. No sign of infection. WBC WNL. CRP <5.0 ESR 30. Received 1 dose of vancomycin and Zosyn in ED. Switch to clindamycin IV. Day #4 of IV antibiotics. Day 4 clindamycin. Antibiotics could be DC'd after patient is being evaluated by Dr. Jamel Warner meanwhile continue empiric IV antibiotics, wound care, analgesics, follow-up cultures. General surgery has been consulted, they have evaluated patient and they recommend arterial Doppler and if positive follow-up with vascular surgeon at [facility] and if negative to follow-up with wound care as outpatient. 04/09/2019. Bilateral lower extremity arterial Doppler positive for severe hemodynamically significant lesions in the bilateral lower extremities at rest. Worse on the right side. 04/07/2019. Right foot x-ray and right lower extremity venous Doppler negative for any acute abnormalities. 04/11/2019-right foot x-ray is negative for osteomyelitis. Venous Dopplers negative for DVTs. Arterial Doppler indicates severe hemodynamically significant stenosis in both lower extremities. 04/12/2019-presently on IV clindamycin blood cultures are negative afebrile. Arterial Doppler indicates severe hemodynamically significant stenosis in both lower extremities. I spoke to Dr. Bullock he said he is going to follow-up the patient in his office in 1 week. And is recommended to restart Eliquis during the hospital stay. Patient says she is taking Eliquis at home. 04/13/2019-. Patient has a nonhealing right heel wound. Presently on IV clindamycin blood cultures are negative. Venous Dopplers negative for DVT arterial Doppler is positive for hemodynamically significant stenosis. (3) Diabetes mellitus, type II Qualifiers: Diabetes mellitus long-term insulin use: unspecified terminal carman insulin use status Diabetes mellitus complication status: with skin complications Diabetes mellitus complication detail: with other skin complication Qualified Code(s): E11.628 - Type 2 diabetes mellitus with other skin complications Is this a current diagnosis for this admission?: Yes Plan: Not controlled. A1c > 10%. Increase metformin to thousand milligrams p.o. twice daily, glyburide 2.5 mg p.o. daily. Diabetic diet, long-acting insulin, pre-meal insulin, sliding scale insulin, Accu-Chek, hypoglycemia protocol. Adjust dosage as needed. Patient will need to be discharged on insulin. 04/11/2019-patient has history of type 2 diabetes mellitus hemoglobin A1c is more than 10 presently on metformin thousand milligrams twice a day glyburide 2.5 mg p.o. daily, insulin sliding scale. To hold metformin in case we need angiogram. Dietary consult was requested. 04/12/2019-latest blood sugar is 200 hemoglobin A1c is more than 10, presently on Lantus 18 units in the morning glipizide 2.5 mg daily and insulin sliding scale. Plan is to increase glipizide to 2.5 mg p.o. twice daily. 04/13/2019-patient blood sugar this morning is 173. Managed to continue glipizide 2.5 mg p.o. twice daily, Lantus 18 units in the morning and insulin sliding scale before meals and at bedtime. (4) PAD (peripheral artery disease) Is this a current diagnosis for this admission?: Yes Plan: Status post vascular intervention in January 2019. 04/09/2019. Bilateral lower extremity arterial Doppler positive for severe hemodynamically significant lesions in the bilateral lower extremities at rest. Worse on the right side. 04/07/2019. Right foot x-ray and right lower extremity venous Doppler negative for any acute abnormalities. Dr. Jamel Warner has been consulted. We will follow-up recommendation. Continue aspirin and statins. 04/11/2019-patient is on aspirin and statins. Blood pressure is well controlled around 140/81. Blood sugar is 147. X-rays are negative for acute pathology like osteomyelitis. Continue to complaining of severe pains in the lower extremities pain scale 9/10. Presently on oxycodone 1 tablet every 6 hours and IV morphine 2 mg every 4 hours as needed. Plan is to continue the present management. 04/12/2019-patient is presently on aspirin and statins blood pressure is 115/74 well-controlled latest blood sugar is 200 to increase glipizide to 2.5 mg p.o. twice daily. Presently on morphine and oxycodone started on Lyrica 75 mg p.o. twice daily. We are going to arrange for referral to pain management as an outpatient. (5) Hyperlipidemia Is this a current diagnosis for this admission?: Yes - Time Time Spent with patient: 25-34 minutes Medications reviewed and adjusted accordingly: Yes Anticipated discharge: Home
[2019-04-13] MEDS: ATORVASTATIN CALCIUM 40 MG TABLET PO SCH (21:34)
[2019-04-14 05:26] LABS: ABSOLUTE LYMPHOCYTES (AUTO) 2.4 10^3/uL (0.5-4.7); ABSOLUTE MONOCYTES (AUTO) 0.7 10^3/uL (0.1-1.4); ABSOLUTE NEUT (AUTO) 2.4 10^3/uL (1.7-8.2); BASOPHILS % (AUTO) 0.9 % (0-2); HEMATOCRIT 37.7 % (36.0-47.0); HEMOGLOBIN 12.8 g/dL (12.0-15.5); LYMPHOCYTES % (AUTO) 43.3 % (13-45); MEAN CORPUSCULAR HEMOGLOBIN 28.4 pg (27.0-33.4); MEAN CORPUSCULAR HGB CONC 33.9 g/dL (32.0-36.0); MEAN CORPUSCULAR VOLUME 84 fl (80-97); MONOCYTES % (AUTO) 12.4 % (3-13); PLATELET COUNT 234 10^3/uL (150-450); RED BLOOD COUNT 4.51 10^6/uL (3.72-5.28); RED CELL DISTRIBUTION WIDTH 13.7 % (11.5-14.0); SEGMENTED NEUTROPHILS % (AUTO) 43.4 % (42-78); TOTAL CELLS COUNTED % (AUTO) 100 %; WHITE BLOOD COUNT 5.5 10^3/uL (4.0-10.5)
[2019-04-14 05:51] LABS: ALANINE AMINOTRANSFERASE 24 U/L (9-52); ALBUMIN 3.6 g/dL (3.5-5.0); ALKALINE PHOSPHATASE 78 U/L (38-126); ANION GAP 8 (5-19); ASPARTATE AMINO TRANSFERASE 24 U/L (14-36); BILIRUBIN,DIRECT 0.2 mg/dL (0.0-0.4); BILIRUBIN,TOTAL 0.3 mg/dL (0.2-1.3); BLOOD UREA NITROGEN 30 mg/dL (7-20); CALCIUM 9.9 mg/dL (8.4-10.2); CARBON DIOXIDE 27 mmol/L (22-30); CHLORIDE 104 mmol/L (98-107); GLUCOSE 135 mg/dL (75-110); SODIUM 139.2 mmol/L (137-145)
[2019-04-14 05:52] LABS: TOTAL PROTEIN 6.3 g/dL (6.3-8.2)
[2019-04-14] MEDS: INSULIN LISPRO 100 UNIT/ML 3 ML VIAL SUBCUT SCH ×2 (09:50→11:43)
--- NOTE | 2019-04-14 11:17 | PDOC DISCHARGE SUMMARY ---
General - Admit/Disc Date/PCP Admission Date/Primary Care Provider: 04/08/19 14:59 Discharge Date: 04/14/19 - Discharge Diagnosis (1) Cellulitis Is this a current diagnosis for this admission?: Yes Summary: Surgical wound over dorsalis pedis on the right foot looks more erythematous with swelling and TTP. Afebrile, CMP, CBC WNL. ESR 30, CRP <5.0. X-ray negative for osteomyelitis. Empiric IV antibiotics, switch to once appropriate. Follw up wound culture 04/11/2019-redness with scab over the right foot erythematous with mild swelling. Patient T-max is 98.1. Complaining of pain of 9/10. X-rays are negative for osteomyelitis. blood Cultures are pending. presently is presently on clindamycin IV 600 mg every 8 hours. I spoke to Dr. Jamel Torres's recommendation is optimization of the medical management. Also placed call to Dr. gallegos to discuss the further plan of care. Presently on IV clindamycin 600 mg every 8 hours. 04/12/2019-patient admitted with cellulitis to right foot. Still looks erythematous swelling is resolved. T-max is 97.8. Presently on IV clindamycin 60 mg every 8 hours. Blood cultures are negative. Started on Eliquis today. And also started on Lyrica 75 mg p.o. twice daily for low leg pains. 04/13/2019-. 73-year-old female admitted with bilateral lower leg pain and right foot redness. There is a scab zak on the right dorsum of the foot and a nonhealing ulcer on the right heel. Presently receiving IV clindamycin. Blood cultures are negative. Plan is to continue the present management probably discharge tomorrow. 04/14/2019-patient still have a open wound on the dorsum of the right foot no obvious drainage was seen. No signs of infection present. Blood cultures are negative. Plan is to discharge her on her levo floxacillin 500 mg p.o. daily for 1 week. (2) Surgical wound, non healing Is this a current diagnosis for this admission?: Yes Summary: Mild improvement but rolling machine tender and erythematous. No sign of infection. WBC WNL. CRP <5.0 ESR 30. Received 1 dose of vancomycin and Zosyn in ED. Switch to clindamycin IV. Day #4 of IV antibiotics. Day 4 clindamycin. Antibiotics could be DC'd after patient is being evaluated by Dr. Jamel Warner meanwhile continue empiric IV antibiotics, wound care, analgesics, follow-up cultures. General surgery has been consulted, they have evaluated patient and they recommend arterial Doppler and if positive follow-up with vascular surgeon at [facility] and if negative to follow-up with wound care as outpatient. 04/09/2019. Bilateral lower extremity arterial Doppler positive for severe hemodynamically significant lesions in the bilateral lower extremities at rest. Worse on the right side. 04/07/2019. Right foot x-ray and right lower extremity venous Doppler negative for any acute abnormalities. 04/11/2019-right foot x-ray is negative for osteomyelitis. Venous Dopplers negative for DVTs. Arterial Doppler indicates severe hemodynamically significant stenosis in both lower extremities. 04/12/2019-presently on IV clindamycin blood cultures are negative afebrile. Art erial Doppler indicates severe hemodynamically significant stenosis in both lower extremities. I spoke to Dr. Bullock he said he is going to follow-up the patient in his office in 1 week. And is recommended to restart Eliquis during the hospital stay. Patient says she is taking Eliquis at home. 04/13/2019-. Patient has a nonhealing right heel wound. Presently on IV clindamycin blood cultures are negative. Venous Dopplers negative for DVT arterial Doppler is positive for hemodynamically significant stenosis. 04/14/2019-patient has a right heel nonhealing wound most likely secondary to severe peripheral vascular disease. Venous Doppler was during the hospital stay which was negative for DVT and arterial Doppler was positive for severe atherosclerotic vascular disease. Patient is going home on apixaban 5 mg p.o. twice daily, aspirin, atorvastatin. (3) Diabetes mellitus, type II Is this a current diagnosis for this admission?: Yes Summary: Not controlled. A1c > 10%. Increase metformin to thousand milligrams p.o. twice daily, glyburide 2.5 mg p.o. daily. Diabetic diet, long-acting insulin, pre-meal insulin, sliding scale insulin, Accu-Chek, hypoglycemia protocol. Adjust dosage as needed. Patient will need to be discharged on insulin. 04/11/2019-patient has history of type 2 diabetes mellitus hemoglobin A1c is more than 10 presently on metformin thousand milligrams twice a day glyburide 2.5 mg p.o. daily, insulin sliding scale. To hold metformin in case we need angiogram. Dietary consult was requested. 04/12/2019-latest blood sugar is 200 hemoglobin A1c is more than 10, presently on Lantus 18 units in the morning glipizide 2.5 mg daily and insulin sliding scale. Plan is to increase glipizide to 2.5 mg p.o. twice daily. 04/13/2019-patient blood sugar this morning is 173. Managed to continue glipizide 2.5 mg p.o. twice daily, Lantus 18 units in the morning and insulin sliding scale before meals and at bedtime. 04/14/2019-patient latest blood sugar is 100. Hemoglobin A1c is 9.9 dietary consult was done during this hospital stay she is going home on glipizide 2.5 mg p.o. twice daily, metformin 500 mg p.o. daily, Lantus 25 units twice a day. Patient is advised to follow-up with primary care physician for close monitoring of the blood sugars and hemoglobin A1c. (4) PAD (peripheral artery disease) Is this a current diagnosis for this admission?: Yes Summary: Status post vascular intervention in January 2019. 04/09/2019. Bilateral lower extremity arterial Doppler positive for severe hemodynamically significant lesions in the bilateral lower extremities at rest. Worse on the right side. 04/07/2019. Right foot x-ray and right lower extremity venous Doppler negative for any acute abnormalities. Dr. Jamel Warner has been consulted. We will follow-up recommendation. Continue aspirin and statins. 04/11/2019-patient is on aspirin and statins. Blood pressure is well controlled around 140/81. Blood sugar is 147. X-rays are negative for acute pathology like osteomyelitis. Continue to complaining of severe pains in the lower extremities pain scale 9/10. Presently on oxycodone 1 tablet every 6 hours and IV morphine 2 mg every 4 hours as needed. Plan is to continue the present management. 04/12/2019-patient is presently on aspirin and statins blood pressure is 115/74 well-controlled latest blood sugar is 200 to increase glipizide to 2.5 mg p.o. twice daily. Presently on morphine and oxycodone started on Lyrica 75 mg p.o. twice daily. We are going to arrange for referral to pain management as an outpatient. 04/14/2019-patient has severe peripheral vascular disease recent surgery was then widened hospital follow-up arterial Dopplers here shows hemodynamically significant atherosclerotic vascular disease. Patient is continued to complain of lower extremity pains I gave the prescription for Percocet every 6 as needed, Lyrica 150 mill grams p.o. twice daily we are going to refer her to the pain management clinic. I strongly advised her to follow-up with Dr. gallegos next week. (5) Hyperlipidemia Is this a current diagnosis for this admission?: Yes Summary: 04/14/2019-patient is going home on atorvastatin 40 mg p.o. daily. - Additional Information Discharge Diet: Diabetic Discharge Activity: Activity As Tolerated Prescriptions: Apixaban [Eliquis 5 mg Tablet] 5 mg PO BID #60 tablet Atorvastatin Calcium [Lipitor 40 mg Tablet] 40 mg PO QHS #30 tablet Glipizide [Glucotrol Xl 2.5 mg Tab.er] 2.5 mg PO BID #60 tab.er.24 Insulin Glargine,Hum.rec.anlog [Lantus Insulin 100 Unit/1 ml 10 ml] 25 unit SUBCUT Q12 #3 vial Lisinopril [Prinivil 10 mg Tablet] 20 mg PO DAILY #30 tablet Oxycodone HCl/Acetaminophen [Percocet 5-325 mg Tablet] 1 tab PO Q6HP PRN #30 tablet PRN Reason: Pregabalin [Lyrica 75 mg Capsule] 150 mg PO BID #60 capsule Home Medications: Aspirin [Aspirin 325 mg Tablet] 325 mg PO DAILY 04/07/19 Metformin HCl [Glucophage XR 500 mg Tablet] 500 mg PO DAILY 04/07/19 Apixaban [Eliquis 5 mg Tablet] 5 mg PO BID #60 tablet 04/14/19 Atorvastatin Calcium [Lipitor 40 mg Tablet] 40 mg PO QHS #30 tablet 04/14/19 Glipizide [Glucotrol Xl 2.5 mg Tab.er] 2.5 mg PO BID #60 tab.er.24 04/14/19 Insulin Glargine,Hum.rec.anlog [Lantus Insulin 100 Unit/1 ml 10 ml] 25 unit SUBCUT Q12 #3 vial 04/14/19 Lisinopril [Prinivil 10 mg Tablet] 20 mg PO DAILY #30 tablet 04/14/19 Oxycodone HCl/Acetaminophen [Percocet 5-325 mg Tablet] 1 tab PO Q6HP PRN #30 tablet 04/14/19 Pregabalin [Lyrica 75 mg Capsule] 150 mg PO BID #60 capsule 04/14/19 History of Present Illness History of Present Illness: CHARLEE CHING is a 73 year old female 73 year old female past medical history of diabetes and peripheral arterial disease who presented to [facility] on 01/27/2019 was diagnosed with critical limb ischemia of bilateral lower extremity worse on the right side and subsequently was transferred to [facility] where she stayed until February 02 and received vascular intervention on bilateral lower extremities. Patient was discharged on February 02 and was asked to follow-up with the vascular surgeon on February 15, as per patient she followed up but was not seen by anybody and had to come back home. She is stating that she has been nonhealing wounds from the surgical sites on the bilateral lower extremities, with severe sharp, 9/10, sharp, constant pain of the lower extremities worse on the right side, with swelling and erythema of bilateral lower extremity worse on the right side. Patient is very upset and tearful stating that she did not get a proper follow- up and she has been in severe pain since the surgery. Denies any fever, chills, sob, chest pain, shortness of breath, headache, nausea, vomiting, diarrhea, constipation or any urinary symptoms. She is still ambulatory but with great difficulty. She lives alone and she is very upset about the fact that she cannot carry on her daily chores. In ED and x-ray of the right foot and venous Doppler did not show any acute abnormalities. On physical examination there are several surgical wounds as follow: one surgical over medial aspect the left thigh over femoral artery territory wh ich looks clean but tender to palpation with mild erythema on the edges. Several surgical wounds on the right lower extremity. One over medial aspect the right thigh over femoral artery territory which looks clean but tender to palpation with mild erythema on the edges, one below the knee on medial aspect over the tibial artery, on over lateral medial malleolus over posterior tibial artery, one over dorsal aspect of the foot over dorsalis pedis artery. All Surgical wounds are tender to palpation, erythematous with mild swelling, but no active discharge. Hospital Course Hospital Course: 04/14/2019-patient came in with severe lower extremity pains and nonhealing right heel wound and surgical wound on the dorsum of the right foot cultures are nega tive. She was treated with IV antibiotics. No complications during the hospital stay except that patient is continued to have severe lower extremity pains. Physical Exam Vital Signs: Temp Pulse Resp BP Pulse Ox 97.5 F 57 L 16 130/43 H 95 04/13/19 15:50 04/13/19 15:50 04/13/19 15:50 04/13/19 15:50 04/13/19 15:50 Intake & Output 04/13/19 04/14/19 04/15/19 06:59 06:59 06:59 Intake Total 1180 770 Balance 1180 770 Weight 61 kg 62.4 kg General appearance: PRESENT: no acute distress Head exam: PRESENT: atraumatic Eye exam: PRESENT: PERRLA Mouth exam: PRESENT: dry mucosa Teeth exam: PRESENT: poor dentation Neck exam: ABSENT: carotid bruit, JVD, lymphadenopathy, thyromegaly Respiratory exam: PRESENT: clear to auscultation tom. ABSENT: rales, rhonchi, wheezes Cardiovascular exam: PRESENT: RRR. ABSENT: diastolic murmur, rubs, systolic murmur Pulses: PRESENT: other - Poor peripheral pulses. GI/Abdominal exam: PRESENT: normal bowel sounds, soft. ABSENT: distended, guarding, mass, organolmegaly, rebound, tenderness Rectal exam: PRESENT: deferred Extremities exam: PRESENT: other - Patient have a small open surgical wound on the dorsum of the right foot looks clean without any drainage I did not see any signs of infection. Neurological exam: PRESENT: alert, awake, oriented to person, oriented to place, oriented to time, oriented to situation, CN II-XII grossly intact. ABSENT: motor sensory deficit Psychiatric exam: PRESENT: appropriate affect, normal mood. ABSENT: homicidal ideation, suicidal ideation Results Laboratory Results: 04/14/19 04:53 04/14/19 04:53 04/14/19 04/14/19 04:53 04:53 WBC 5.5 RBC 4.51 Hgb 12.8 Hct 37.7 MCV 84 MCH 28.4 MCHC 33.9 RDW 13.7 Plt Count 234 Seg Neutrophils % 43.4 Lymphocytes % 43.3 Monocytes % 12.4 Eosinophils % 0.0 Basophils % 0.9 Absolute Neutrophils 2.4 Absolute Lymphocytes 2.4 Absolute Monocytes 0.7 Absolute Eosinophils 0.0 Absolute Basophils 0.0 Sodium 139.2 Potassium 5.0 Chloride 104 Carbon Dioxide 27 Anion Gap 8 BUN 30 H Creatinine 0.80 Est GFR ( Amer) > 60 Est GFR (Non-Af Amer) > 60 Glucose 135 H Calcium 9.9 Magnesium 2.2 Total Bilirubin 0.3 AST 24 ALT 24 Alkaline Phosphatase 78 Total Protein 6.3 Albumin 3.6 Impressions: Foot X-Ray 04/07/19 12:05 IMPRESSION: NEGATIVE STUDY OF THE RIGHT FOOT. NO RADIOGRAPHIC EVIDENCE OF ACUTE INJURY. Qualifiers - * PATIENT BEING DISCHARGED WITH ANY OF THE FOLLOWING DIAGNOSIS: No VTE patient discharged on overlapping Therapy?: No Acute Heart Failure - Is this a Heart Failure Patient?: No Plan Time Spent: Greater than 30 Minutes
[2019-04-14] MEDS: MAGNESIUM OXIDE 400 MG TABLET PO SCH (11:35)
[2019-04-14] MEDS: DOCUSATE SODIUM 100 MG CAPSULE PO SCH (11:35)
[2019-04-14] MEDS: PREGABALIN 75 MG CAPSULE PO SCH (11:35)
[2019-04-14] MEDS: LISINOPRIL 10 MG TABLET PO SCH (11:36)
[2019-04-14] MEDS: FAMOTIDINE 20 MG TABLET PO SCH (11:36)
[2019-04-14] MEDS: ASPIRIN 325 MG TABLET PO SCH (11:36)
[2019-04-14] MEDS: APIXABAN 5 MG TABLET PO SCH (11:36)
[2019-04-14] MEDS: GLIPIZIDE XL 2.5 MG TAB.ER.24 PO SCH (11:39)
[2019-04-14 11:40] VITALS: BP 133/57
[2019-04-14] MEDS: INSULIN GLARGINE,HUM.REC.ANLOG 1,000 UNIT/10 ML VIAL SUBCUT SCH (11:43)
== END 2019-04-14 13:15 | disposition home or self-care (01) | DRG 920 ==
LOC: ER 11:25 → EH 17:28 → 3N 21:20 → OBSVTOIN 04-08 14:59 → 4S 04-12 18:39
PROVIDERS: ADMIT Internal Medicine; ATTEND Internal Medicine
DX: T81.89XA Other complications of procedures, not elsewhere classified, initial encounter (principal); L03.115 Cellulitis of right lower limb; E11.628 Type 2 diabetes mellitus with other skin complications; E11.51 Type 2 diabetes mellitus with diabetic peripheral angiopathy without gangrene; I10 Essential (primary) hypertension; E78.5 Hyperlipidemia, unspecified; Z85.3 Personal history of malignant neoplasm of breast; Z90.11 Acquired absence of right breast and nipple; Z79.82 Long term (current) use of aspirin; Z79.01 Long term (current) use of anticoagulants; Z79.891 Long term (current) use of opiate analgesic; Z79.4 Long term (current) use of insulin; Z95.5 Presence of coronary angioplasty implant and graft; Z79.899 Other long term (current) drug therapy; Z60.2 Problems related to living alone
CPT/HCPCS: 36415; 80048; 80053; 80061; 82962; 83036; 83735; 85025; 85027; 85610; 85652; 85730; 86140; 87040; 93925; 93970; 96365; 99285; G0378; J0360; J1650; J1815; J2270; J2405; J2543; J3370; J3490

== ENCOUNTER 2019-05-18 11:07 | Inpatient (IN) | payer OTHER, MEDICARE ==
[~2019-05-18 11:07] MED LIST changes: -KETOROLAC TROMETHAMINE 0.45% 4 DROP/0.4 ML DROPERETTE OS PRN; -MIDAZOLAM 2 MG/2 ML INJ ONE; +SUCCINYLCHOLINE CHLORIDE INJ 200 MG/10 ML VIAL ONE
[2019-05-18 12:32] LABS: VENOUS BLOOD BASE EXCESS 8.8 mmol/L; VENOUS BLOOD HCO3 33.8 mmol/L (20-32); VENOUS BLOOD PCO2 47.7 mmHg (35-63); VENOUS BLOOD PH 7.47 (7.30-7.42)
[2019-05-18 12:34] LABS: ABSOLUTE BASOPHILS # (AUTO) 0.1 10^3/uL (0.0-0.2); ABSOLUTE LYMPHOCYTES (AUTO) 1.7 10^3/uL (0.5-4.7); ABSOLUTE MONOCYTES (AUTO) 1.1 10^3/uL (0.1-1.4); ABSOLUTE NEUT (AUTO) 12.5 10^3/uL (1.7-8.2); BASOPHILS % (AUTO) 0.7 % (0-2); EOSINOPHILS % (AUTO) 0.1 % (0-6); HEMATOCRIT 32.9 % (36.0-47.0); LYMPHOCYTES % (AUTO) 11.1 % (13-45); MEAN CORPUSCULAR HEMOGLOBIN 27.7 pg (27.0-33.4); MEAN CORPUSCULAR HGB CONC 33.4 g/dL (32.0-36.0); MEAN CORPUSCULAR VOLUME 83 fl (80-97); PLATELET COUNT 452 10^3/uL (150-450); RED BLOOD COUNT 3.97 10^6/uL (3.72-5.28); RED CELL DISTRIBUTION WIDTH 13.5 % (11.5-14.0); SEGMENTED NEUTROPHILS % (AUTO) 81.1 % (42-78); TOTAL CELLS COUNTED % (AUTO) 100 %; WHITE BLOOD COUNT 15.4 10^3/uL (4.0-10.5)
--- NOTE | 2019-05-18 12:57 | ER Document Report ---
Entered by SUSIE ROBERTSON SCRIBE 05/18/19 1128 Acting as scribe for:SHELLEY HUBBARD MD ED Extremity Problem, Lower - General Stated Complaint: FOOT PAIN Time Seen by Provider: 05/18/19 11:15 Mode of Arrival: Medic Information source: Patient, Emergency Med Personnel, [facility] Records, Outside Facility Records Notes: Patient is a 73 year old female with severe peripheral vascular disease that p resents to the emergency department today from wound care for "possible sepsis". On arrival here the patient complains of right foot pain. The right foot is purple and cold to the touch. There are two non-healing surgical wounds, one is to the medial aspect of the right leg and the other is over the dorsum of the right foot. Right foot wound has exposed extensor tendons. The patient has been seen here by Dr. Randall Torres as well as Vascular surgery at [facility] Dr. Maddox. Patient is a very poor historian so history is limted. TRAVEL OUTSIDE OF THE [place] IN LAST 30 DAYS: No - Related Data Allergies/Adverse Reactions: No Known Allergies Allergy (Verified 04/07/19 11:30) Past Medical History - General Information source: [facility] Records, Outside Facility Records - Social History Smoking Status: Never Smoker Cigarette use (# per day): No Frequency of alcohol use: None Drug Abuse: None Lives with: Family Family History: Reviewed & Not Pertinent - Past Medical History Cardiac Medical History: Reports: Hx Coronary Artery Disease, Hx DVT, Hx Peripheral Vascular Disease Endocrine Medical History: Reports: Hx Diabetes Mellitus Type 2 Malignancy Medical History: Reports: Hx Breast Cancer Skin Medical History: Reports Hx Cellulitis Past Surgical History: Reports: Hx Coronary Stent, Hx Gynecologic Surgery - Unsuccessful fallopian tuboplasty, Hx Mastectomy - RIGHT,RESTRICTED, Hx Vascular Surgery - lower extremities at [facility] - Immunizations Hx Diphtheria, Pertussis, Tetanus Vaccination: No Review of Systems - Review of Systems Constitutional: No symptoms reported EENT: No symptoms reported Cardiovascular: No symptoms reported Respiratory: No symptoms reported Gastrointestinal: No symptoms reported Genitourinary: No symptoms reported Female Genitourinary: No symptoms reported Musculoskeletal: No symptoms reported Skin: See HPI, Change in color - right foot, Other - right foot pain, wounds not healing, color chasnge Hematologic/Lymphatic: No symptoms reported Neurological/Psychological: No symptoms reported -: Yes All other systems reviewed and negative Physical Exam - Vital signs Vitals: Temp Pulse Resp BP Pulse Ox 98.8 F 72 20 137/45 H 95 05/18/19 16:02 05/18/19 16:02 05/18/19 16:02 05/18/19 16:02 05/18/19 16:02 - Notes Notes: Physical Exam: General: Alert. HEENT: Normocephalic. Atraumatic. PERRL. Extraocular movements intact. Oropharynx clear. Neck: Supple. Non-tender. Respiratory: No respiratory distress. Clear and equal breath sounds bilaterally. Cardiovascular: Regular rate and rhythm. Abdominal: Normal Inspection. Non-tender. No distension. Normal Bowel Sounds. Back: Non-tender. No deformity or step off. Extremities: Upper extremities: Normal inspection. Normal ROM. Lower extremities: see skin exam. right foot is swollen, purple, and cold to the touch. Neurological: Normal cognition. AAOx4. Normal speech. Psychological: Normal affect. Normal Mood. Skin: PRESENT: right cold foot with nonhealing multiple incisions from previous vascular surgery Course - Vital Signs Vital signs: Temp Pulse Resp BP Pulse Ox 98.8 F 72 20 137/45 H 95 05/18/19 16:02 05/18/19 16:02 05/18/19 16:02 05/18/19 16:02 05/18/19 16:02 - Laboratory Result Diagrams: 05/18/19 12:10 05/18/19 13:23 Laboratory results interpreted by me: 05/18/19 05/18/19 05/18/19 12:10 12:10 13:23 WBC 15.4 H Hgb 11.0 L Hct 32.9 L Plt Count 452 H Seg Neutrophils % 81.1 H Lymphocytes % 11.1 L Absolute Neutrophils 12.5 H VBG pH 7.47 H VBG HCO3 33.8 H Creatinine 0.50 L AST 38 H Alkaline Phosphatase 150 H Creatine Kinase 348 H Albumin 3.2 L - EKG Interpretation by Wi EKG shows normal: Sinus rhythm, [place], Intervals, QRS Complexes, ST-T Waves Rate: Normal - 74 Rhythm: NSR - Consults Dr. Lopez Time consulted: 14:06 Consulted provider: will see as inpatient - [facility] Dr. Glaser Time consulted: 13:00 Consulted provider: will come to ER - Will consult. Have the patient admitted by her primary care provider. Discharge - Discharge Clinical Impression: Ischemic necrosis of foot, PAD (peripheral artery disease) Diabetes mellitus, type II Qualifiers: Diabetes mellitus shelter insulin use: unspecified shelter insulin use s [facility] Diabetes mellitus complication status: with other specified complication Qualified Code(s): E11.69 - Type 2 diabetes mellitus with other specified complication Surgical wound, non healing Qualifiers: Encounter type: initial encounter Qualified Code(s): T81.89XA - Other complications of procedures, not elsewhere classified, initial encounter Condition: Stable Disposition: ADMITTED INPATIENT Admitting Provider: Jessica Unit Admitted: ANSHU Scribe Attestation: 05/18/19 11:58 I personally performed the services described in the documentation, reviewed and edited the documentation which was dictated to the scribe in my presence, and it accurately records my words and actions. I personally performed the services described in the documentation, reviewed and edited the documentation which was dictated to the scribe in my presence, and it accurately records my words and actions.
[2019-05-18] MEDS ORDERED: MORPHINE SULFATE 10 MG/ML INJ IV ONE (13:16)
[2019-05-18] MEDS ORDERED: ONDANSETRON HCL INJ/PF 4 MG/2 ML SDV IV ONE (13:16)
[2019-05-18 13:52] LABS: APPEARANCE,URINE SLIGHTLY-CLOUDY; BILIRUBIN,URINE NEGATIVE (NEGATIVE); COLOR,URINE YELLOW; GLUCOSE, URINE NEGATIVE (NEGATIVE); KETONES,URINE NEGATIVE (NEGATIVE); LEUKOCYTE ESTERASE,URINE NEGATIVE (NEGATIVE); NITRITE,URINE NEGATIVE (NEGATIVE); PROTEIN,URINE NEGATIVE (NEGATIVE); URINE SPECIFIC GRAVITY 1.023; UROBILINOGEN,URINE NEGATIVE mg/dL (<2.0)
[2019-05-18 14:03] LABS: ALANINE AMINOTRANSFERASE 27 U/L (9-52); ALBUMIN 3.2 g/dL (3.5-5.0); ALKALINE PHOSPHATASE 150 U/L (38-126); ANION GAP 11 (5-19); ASPARTATE AMINO TRANSFERASE 38 U/L (14-36); BILIRUBIN,DIRECT 0.4 mg/dL (0.0-0.4); BILIRUBIN,TOTAL 0.4 mg/dL (0.2-1.3); BLOOD UREA NITROGEN 16 mg/dL (7-20); CALCIUM 9.7 mg/dL (8.4-10.2); CARBON DIOXIDE 29 mmol/L (22-30); CHLORIDE 101 mmol/L (98-107); CREATINE KINASE 348 U/L (30-135); GLUCOSE 94 mg/dL (75-110); POTASSIUM 4.2 mmol/L (3.6-5.0); TOTAL PROTEIN 6.5 g/dL (6.3-8.2)
--- NOTE | 2019-05-18 17:08 | PDOC CONSULTATION ---
Consultation Consult Date: 05/18/19 Attending physician:: VANGIE SOUSA Provider Consulted: JOSE DAVID BROWN Consult reason:: rt foot ischemia History of Present Illness Admission Date/PCP: 05/18/19 14:21 VANGIE SOUSA History of Present Illness: CHARLEE CHING is a 73 year old female with severe peripheral vascular disease that presents to the emergency department today from wound care for "possible sepsis". On arrival here the patient complains of right foot pain. The right foot is purple and cold to the touch. There are two non-healing surgical wounds, one is to the medial aspect of the right leg and the other is over the dorsum of the right foot. Right foot wound has exposed extensor tendons. The patient has been seen here by Dr. Randall Torres as well as Vascular surgery at [facility] Dr. Maddox. Patient is a very poor historian so history is limted. Dr Torres reports revascularization of the foot has been tried and is unsuccessful Past Medical History Cardiac Medical History: Reports: Coronary Artery Disease, DVT, Peripheral Vascular Disease Denies: Myocardial Infarction, Hyperlipidema, Hypertension Pulmonary Medical History: Denies: Asthma Neurological Medical History: Denies: Seizures Endocrine Medical History: Reports: Diabetes Mellitus Type 2 Malignancy Medical History: Reports: Breast Cancer GI Medical History: Denies: Hepatitis, Hiatal Hernia Hematology: Denies: Anemia, Sickle Cell Disease Past Surgical History Past Surgical History: Reports: Coronary Stent, Mastectomy - RIGHT,RESTRICTED, V ascular Surgery - lower extremities at [facility] Denies: Amputation, Hysterectomy, Pacemaker Social History Lives with: Family Smoking Status: Never Smoker Frequency of Alcohol Use: None Hx Recreational Drug Use: No Drugs: None Hx Prescription Drug Abuse: No Family History Family History: Reviewed & Not Pertinent Parental Family History Reviewed: No Children Family History Reviewed: NA Sibling(s) Family History Reviewed.: NA Medication/Allergy Allergies/Adverse Reactions: No Known Allergies Allergy (Verified 04/07/19 11:30) Review of Systems Constitutional: ABSENT: chills, fever(s), headache(s), weight gain, weight loss Eyes: ABSENT: visual disturbances Ears: ABSENT: as per HPI, hearing changes, other Nose, Mouth, and Throat: ABSENT: as per HPI, headache(s), mouth pain, sore throat, vertigo, other Cardiovascular: ABSENT: as per HPI, chest pain, dyspnea on exertion, edema, orthropnea, palpitations, other Respiratory: ABSENT: as per HPI, cough, dyspnea, hemoptysis, sputum, other Gastrointestinal: ABSENT: as per HPI, abdominal pain, bloating, coffee ground emesis, constipation, diarrhea, dysphagia, heartburn, hematemesis, hematochezia, melena, nausea, vomiting, other Genitourinary: ABSENT: as per HPI, difficulty urinating, dysuria, hematuria, nocturia, other Musculoskeletal: PRESENT: deformity, muscle weakness Integumentary: ABSENT: rash, wounds Neurological: PRESENT: numbness, weakness Psychiatric: ABSENT: anxiety, depression, homidical ideation, suicidal ideation Endocrine: ABSENT: cold intolerance, heat intolerance, polydipsia, polyuria Hematologic/Lymphatic: ABSENT: easy bleeding, easy bruising Physical Exam Vital Signs: Temp Pulse Resp BP Pulse Ox 98.8 F 72 20 137/45 H 95 05/18/19 16:02 05/18/19 16:02 05/18/19 16:02 05/18/19 16:02 05/18/19 16:02 General appearance: PRESENT: mild distress Head exam: PRESENT: normocephalic Eye exam: PRESENT: EOMI Ear exam: PRESENT: normal external ear exam Mouth exam: PRESENT: moist Neck exam: PRESENT: full ROM Respiratory exam: PRESENT: clear to auscultation tom Cardiovascular exam: PRESENT: RRR Pulses: PRESENT: +2 pedal pulses bilateral Vascular exam: PRESENT: pallor GI/Abdominal exam: PRESENT: soft Rectal exam: PRESENT: deferred Gentrourinary exam: ABSENT: ecchymosis, erythema, lacerations, lesions, scrotal swelling, testicular tenderness, urethral discharge, indwelling catheter, other Extremities exam: PRESENT: other - right cold foot with nonhealing multiple incisions from previous vascular surgery. Neurological exam: PRESENT: oriented to person Psychiatric exam: PRESENT: anxious Focused psych exam: PRESENT: other - poss early dementia. Skin exam: PRESENT: dry Results Laboratory Results: 05/18/19 12:10 05/18/19 13:23 05/18/19 05/18/19 05/18/19 12:10 12:10 12:10 WBC 15.4 H RBC 3.97 Hgb 11.0 L Hct 32.9 L MCV 83 MCH 27.7 MCHC 33.4 RDW 13.5 Plt Count 452 H Seg Neutrophils % 81.1 H Lymphocytes % 11.1 L Monocytes % 7.0 Eosinophils % 0.1 Basophils % 0.7 Absolute Neutrophils 12.5 H Absolute Lymphocytes 1.7 Absolute Monocytes 1.1 Absolute Eosinophils 0.0 Absolute Basophils 0.1 VBG pH VBG pCO2 VBG HCO3 VBG Base Excess Sodium Cancelled Potassium Cancelled Chloride Cancelled Carbon Dioxide Cancelled Anion Gap Cancelled BUN Cancelled Creatinine Cancelled Est GFR ( Amer) Cancelled Est GFR (Non-Af Amer) Cancelled Glucose Cancelled Lactic Acid 0.9 Calcium Cancelled Total Bilirubin Cancelled AST Cancelled ALT Cancelled Alkaline Phosphatase Cancelled Total Protein Cancelled Albumin Cancelled Urine Color Urine Appearance Urine pH Ur Specific [place] Urine Protein Urine Glucose (UA) Urine Ketones Urine Blood Urine Nitrite Ur Leukocyte Esterase Urine WBC (Auto) Urine RBC (Auto) 05/18/19 05/18/19 05/18/19 12:10 13:15 13:23 WBC RBC Hgb Hct MCV MCH MCHC RDW Plt Count Seg Neutrophils % Lymphocytes % Monocytes % Eosinophils % Basophils % Absolute Neutrophils Absolute Lymphocytes Absolute Monocytes Absolute Eosinophils Absolute Basophils VBG pH 7.47 H VBG pCO2 47.7 VBG HCO3 33.8 H VBG Base Excess 8.8 Sodium 140.7 Potassium 4.2 Chloride 101 Carbon Dioxide 29 Anion Gap 11 BUN 16 Creatinine 0.50 L Est GFR ( Amer) > 60 Est GFR (Non-Af Amer) > 60 Glucose 94 Lactic Acid Calcium 9.7 Total Bilirubin 0.4 AST 38 H ALT 27 Alkaline Phosphatase 150 H Total Protein 6.5 Albumin 3.2 L Urine Color YELLOW Urine Appearance SLIGHTLY-CLOUDY Urine pH 5.0 Ur Specific [place] 1.023 Urine Protein NEGATIVE Urine Glucose (UA) NEGATIVE Urine Ketones NEGATIVE Urine Blood NEGATIVE Urine Nitrite NEGATIVE Ur Leukocyte Esterase NEGATIVE Urine WBC (Auto) 2 Urine RBC (Auto) 0 05/18/19 05/18/19 05/18/19 12:10 12:10 13:23 Creatine Kinase Cancelled 348 H Troponin I Cancelled 05/18/19 13:23 Creatine Kinase Troponin I 0.054 Assessment & Plan - Plan Summary Plan Summary: after long discussion with pt she agrees to rt bka discussed risks of surgery incluiding bleeding, infection, mi, cva possible need for additional sugery incuding poss aka she understands and agrees to proceed.
[2019-05-18] MEDS: POTASSI CL 20 MEQ/D5-1/2NS 1L 1,000 ML IV PRN (18:09)
[2019-05-18] MEDS ORDERED: VANCOMYCIN HCL 1,000 MG in DEXTROSE 5%-WATER 250 ML IV ONE (19:52)
[2019-05-18] MEDS ORDERED: GLUCAGON,HUMAN RECOMB 1 MG INJ IM PRN (19:56)
[2019-05-18] MEDS ORDERED: DEXTROSE 50%-WATER 25 GM/50 ML DISP.SYRIN IV PRN ×2 (19:56)
[2019-05-18] MEDS ORDERED: DEXTROSE 40% GEL 15 GM TUBE PO PRN ×2 (19:56)
[2019-05-18] MEDS ORDERED: ACETAMINOPHEN 325 MG TABLET PO PRN (19:57)
[2019-05-18] MEDS ORDERED: FENTANYL CITRATE INJ/PF 100 MCG/2 ML AMPUL ONE (20:05)
[2019-05-18] MEDS ORDERED: MIDAZOLAM 2 MG/2 ML INJ ONE (20:05)
[2019-05-18] MEDS ORDERED: MORPHINE SULFATE 10 MG/ML INJ ONE (20:06)
[2019-05-18] MEDS ORDERED: PROPOFOL INJ 200 MG/20 ML VIAL IV ONE (20:06)
[2019-05-18] MEDS ORDERED: MEPERIDINE HCL/PF INJ 25 MG/1 ML DISP.SYRIN IV PRN (21:19)
[2019-05-18] MEDS ORDERED: MORPHINE SULFATE 10 MG/ML INJ IV PRN (21:19)
[2019-05-18] MEDS ORDERED: PROMETHAZINE HCL INJ 25 MG/1 ML VIAL IV PRN ×2 (21:19)
[2019-05-18] MEDS ORDERED: FENTANYL CITRATE INJ/PF 100 MCG/2 ML AMPUL IV PRN ×3 (21:19)
[2019-05-18] MEDS ORDERED: DIPHENHYDRAMINE HCL 50 MG/ML VIAL IV PRN (21:19)
[2019-05-18] MEDS: VANCOMYCIN HCL 1,000 MG in DEXTROSE 5%-WATER 250 ML IV SCH (22:00)
--- NOTE | 2019-05-18 22:07 | Operative Report ---
Nonrecallable Operative Report DATE OF SURGERY: 05/18/19 PREOPERATIVE DIAGNOSIS: ischemic right foot POSTOPERATIVE DIAGNOSIS: ischemic right foot OPERATION: right bka SURGEON: JOSE DAVID BROWN ANESTHESIA: GA TISSUE REMOVED OR ALTERED: right bka COMPLICATIONS: none ESTIMATED BLOOD LOSS: 75cc INTRAOPERATIVE FINDINGS: see procedure note PROCEDURE: Patient was brought to the operating when awake alert in stable condition placed the operative table supine position the right lower extremity was prepped and draped in usual sterile fashion. A the right lower extremity was marked preoperatively for right below the knee amputation initial incision was made transversely on the anterior calf approx imately 1 handsbreadth below the tibial tuberosity and the dissection was carried down laterally to create a posterior flap then with a #10 blade. Once incision was made then began dividing the musculature with the Bovie cautery posterior tibial artery as well as a as well as the anterior tibial and peroneal arteries were all ligated with 0 Vicryl ties. We then came across the rest of the musculature with Bovie cautery. Periosteal elevator we lifted the periosteum of the tibia and fibula and both these were taken well above the incision with the mechanical soft. We then able to remove the specimen was then copiously irrigated with normal saline we checked for hemostasis it was intact the deep muscles were then reapproximated from posterior to anterior with interrupted 0 Vicryl sutures subcutaneous tissues reapproximated with interrupted 3-0 Vicryl sutures and skin was reapproximated standard skin clips which completed the procedure estimated blood loss was 75 cc sponge needle counts were correct x2 patient was awakened in the operating room extubated transferred recovery in stable condition no complications
[2019-05-18] MEDS: DOCUSATE SODIUM 100 MG CAPSULE PO SCH (22:16)
[2019-05-19] MEDS: ENOXAPARIN SODIUM INJ 40 MG/0.4 ML DISP.SYRIN SUBCUT SCH ×2 (00:17→09:11)
[2019-05-19] MEDS: PIPERACILLIN SODIUM/TAZOBACTAM 3.375 GM in NORMAL SALINE 100 ML IV SCH ×5 (00:17→21:03)
[2019-05-19] MEDS: INSULIN LISPRO 100 UNIT/ML 3 ML VIAL SUBCUT SCH ×5 (00:17→21:55)
[2019-05-19] MEDS: PREGABALIN 75 MG CAPSULE PO SCH ×3 (00:18→21:03)
[2019-05-19] MEDS: ATORVASTATIN CALCIUM 40 MG TABLET PO SCH ×2 (00:18→21:03)
[2019-05-19] MEDS: HALOPERIDOL LACTATE INJ 5 MG/1 ML VIAL ONE ×2 (00:40→00:42)
[2019-05-19] MEDS ORDERED: HALOPERIDOL LACTATE INJ 5 MG/1 ML VIAL IV ONE (00:45)
[2019-05-19] MEDS: MORPHINE SULFATE 10 MG/ML INJ IV PRN ×5 (01:45→21:46)
[2019-05-19] MEDS: PANTOPRAZOLE SODIUM 40 MG TABLET.DR PO SCH (05:28)
[2019-05-19 05:43] LABS: ABSOLUTE LYMPHOCYTES (AUTO) 2.5 10^3/uL (0.5-4.7); ABSOLUTE MONOCYTES (AUTO) 0.9 10^3/uL (0.1-1.4); ABSOLUTE NEUT (AUTO) 6.3 10^3/uL (1.7-8.2); BASOPHILS % (AUTO) 0.4 % (0-2); HEMATOCRIT 32.6 % (36.0-47.0); LYMPHOCYTES % (AUTO) 25.5 % (13-45); MEAN CORPUSCULAR HEMOGLOBIN 27.8 pg (27.0-33.4); MEAN CORPUSCULAR HGB CONC 33.7 g/dL (32.0-36.0); MEAN CORPUSCULAR VOLUME 82 fl (80-97); MONOCYTES % (AUTO) 9.3 % (3-13); PLATELET COUNT 431 10^3/uL (150-450); RED BLOOD COUNT 3.96 10^6/uL (3.72-5.28); RED CELL DISTRIBUTION WIDTH 13.7 % (11.5-14.0); SEGMENTED NEUTROPHILS % (AUTO) 64.8 % (42-78); TOTAL CELLS COUNTED % (AUTO) 100 %; WHITE BLOOD COUNT 9.7 10^3/uL (4.0-10.5)
[2019-05-19 06:05] LABS: ALANINE AMINOTRANSFERASE 30 U/L (9-52); ALKALINE PHOSPHATASE 138 U/L (38-126); ANION GAP 8 (5-19); ASPARTATE AMINO TRANSFERASE 32 U/L (14-36); BILIRUBIN,DIRECT 0.3 mg/dL (0.0-0.4); BILIRUBIN,TOTAL 0.4 mg/dL (0.2-1.3); BLOOD UREA NITROGEN 10 mg/dL (7-20); CALCIUM 9.5 mg/dL (8.4-10.2); CARBON DIOXIDE 30 mmol/L (22-30); CHLORIDE 101 mmol/L (98-107); GLUCOSE 185 mg/dL (75-110); POTASSIUM 4.4 mmol/L (3.6-5.0); TOTAL PROTEIN 6.3 g/dL (6.3-8.2)
[2019-05-19] MEDS ORDERED: BENZOCAINE/MENTHOL SORE THROAT LOZENGE BUCCAL PRN (08:24)
[2019-05-19] MEDS: POTASSI CL 20 MEQ/D5-1/2NS 1L 1,000 ML IV PRN (08:30)
[2019-05-19] MEDS: ASPIRIN 81 MG TABLET, ENT COATED PO SCH (09:08)
[2019-05-19] MEDS: LISINOPRIL 10 MG TABLET PO SCH (09:12)
[2019-05-19] MEDS ORDERED: VANCOMYCIN HCL 0 MG in DEXTROSE 5%-WATER 250 ML IV NR (10:00)
--- NOTE | 2019-05-19 10:00 | PDOC PROGRESS REPORT ---
Subjective Progress Note for:: 05/19/19 Subjective:: Feels okay. Reason For Visit: RIGHT LOWER EXTREMITY ARTERIAL INSUFFICENCY Physical Exam Vital Signs: Temp Pulse Resp BP Pulse Ox 98.3 F 76 22 H 187/53 H 97 05/19/19 03:54 05/19/19 03:54 05/19/19 03:54 05/19/19 03:54 05/19/19 03:54 Intake & Output 05/18/19 05/19/19 05/20/19 06:59 06:59 06:59 Intake Total 750 1350 Output Total 75 Balance 675 1350 Weight 54.2 kg General appearance: PRESENT: no acute distress, cooperative Respiratory exam: PRESENT: clear to auscultation tom Cardiovascular exam: PRESENT: RRR Extremities exam: PRESENT: other - Stump wound dressing is intact and dry. Results Laboratory Results: 05/19/19 05:20 05/19/19 05:20 05/18/19 05/18/19 05/18/19 12:10 12:10 12:10 WBC 15.4 H RBC 3.97 Hgb 11.0 L Hct 32.9 L MCV 83 MCH 27.7 MCHC 33.4 RDW 13.5 Plt Count 452 H Seg Neutrophils % 81.1 H Lymphocytes % 11.1 L Monocytes % 7.0 Eosinophils % 0.1 Basophils % 0.7 Absolute Neutrophils 12.5 H Absolute Lymphocytes 1.7 Absolute Monocytes 1.1 Absolute Eosinophils 0.0 Absolute Basophils 0.1 VBG pH VBG pCO2 VBG HCO3 VBG Base Excess Sodium Cancelled Potassium Cancelled Chloride Cancelled Carbon Dioxide Cancelled Anion Gap Cancelled BUN Cancelled Creatinine Cancelled Est GFR ( Amer) Cancelled Est GFR (Non-Af Amer) Cancelled Glucose Cancelled Lactic Acid 0.9 Calcium Cancelled Total Bilirubin Cancelled AST Cancelled ALT Cancelled Alkaline Phosphatase Cancelled Total Protein Cancelled Albumin Cancelled Urine Color Urine Appearance Urine pH Ur Specific [place] Urine Protein Urine Glucose (UA) Urine Ketones Urine Blood Urine Nitrite Ur Leukocyte Esterase Urine WBC (Auto) Urine RBC (Auto) 05/18/19 05/18/19 05/18/19 12:10 13:15 13:23 WBC RBC Hgb Hct MCV MCH MCHC RDW Plt Count Seg Neutrophils % Lymphocytes % Monocytes % Eosinophils % Basophils % Absolute Neutrophils Absolute Lymphocytes Absolute Monocytes Absolute Eosinophils Absolute Basophils VBG pH 7.47 H VBG pCO2 47.7 VBG HCO3 33.8 H VBG Base Excess 8.8 Sodium 140.7 Potassium 4.2 Chloride 101 Carbon Dioxide 29 Anion Gap 11 BUN 16 Creatinine 0.50 L Est GFR ( Amer) > 60 Est GFR (Non-Af Amer) > 60 Glucose 94 Lactic Acid Calcium 9.7 Total Bilirubin 0.4 AST 38 H ALT 27 Alkaline Phosphatase 150 H Total Protein 6.5 Albumin 3.2 L Urine Color YELLOW Urine Appearance SLIGHTLY-CLOUDY Urine pH 5.0 Ur Specific [place] 1.023 Urine Protein NEGATIVE Urine Glucose (UA) NEGATIVE Urine Ketones NEGATIVE Urine Blood NEGATIVE Urine Nitrite NEGATIVE Ur Leukocyte Esterase NEGATIVE Urine WBC (Auto) 2 Urine RBC (Auto) 0 05/19/19 05/19/19 05:20 05:20 WBC 9.7 RBC 3.96 Hgb 11.0 L Hct 32.6 L MCV 82 MCH 27.8 MCHC 33.7 RDW 13.7 Plt Count 431 Seg Neutrophils % 64.8 Lymphocytes % 25.5 Monocytes % 9.3 Eosinophils % 0.0 Basophils % 0.4 Absolute Neutrophils 6.3 Absolute Lymphocytes 2.5 Absolute Monocytes 0.9 Absolute Eosinophils 0.0 Absolute Basophils 0.0 VBG pH VBG pCO2 VBG HCO3 VBG Base Excess Sodium 139.0 Potassium 4.4 Chloride 101 Carbon Dioxide 30 Anion Gap 8 BUN 10 Creatinine 0.49 L Est GFR ( Amer) > 60 Est GFR (Non-Af Amer) > 60 Glucose 185 H Lactic Acid Calcium 9.5 Total Bilirubin 0.4 AST 32 ALT 30 Alkaline Phosphatase 138 H Total Protein 6.3 Albumin 3.0 L Urine Color Urine Appearance Urine pH Ur Specific [place] Urine Protein Urine Glucose (UA) Urine Ketones Urine Blood Urine Nitrite Ur Leukocyte Esterase Urine WBC (Auto) Urine RBC (Auto) 05/18/19 05/18/19 05/18/19 12:10 12:10 13:23 Creatine Kinase Cancelled 348 H Troponin I Cancelled 05/18/19 13:23 Creatine Kinase Troponin I 0.054 Assessment & Plan - Diagnosis (1) Ischemic necrosis of foot Is this a current diagnosis for this admission?: Yes Plan: Status post below-knee amputation. Patient looks stable postoperatively.
[2019-05-19] MEDS: DOCUSATE SODIUM 100 MG CAPSULE PO SCH (21:03)
[2019-05-19] MEDS: VANCOMYCIN HCL 1,000 MG in DEXTROSE 5%-WATER 250 ML IV SCH (21:19)
[2019-05-20] MEDS: PIPERACILLIN SODIUM/TAZOBACTAM 3.375 GM in NORMAL SALINE 100 ML IV SCH ×4 (03:14→22:00)
[2019-05-20] MEDS: PANTOPRAZOLE SODIUM 40 MG TABLET.DR PO SCH (05:10)
[2019-05-20 05:52] LABS: ABSOLUTE BASOPHILS # (AUTO) 0.1 10^3/uL (0.0-0.2); ABSOLUTE LYMPHOCYTES (AUTO) 1.7 10^3/uL (0.5-4.7); ABSOLUTE MONOCYTES (AUTO) 1.1 10^3/uL (0.1-1.4); ABSOLUTE NEUT (AUTO) 9.4 10^3/uL (1.7-8.2); BASOPHILS % (AUTO) 0.6 % (0-2); EOSINOPHILS % (AUTO) 0.1 % (0-6); HEMATOCRIT 31.5 % (36.0-47.0); HEMOGLOBIN 10.4 g/dL (12.0-15.5); LYMPHOCYTES % (AUTO) 14.1 % (13-45); MEAN CORPUSCULAR HEMOGLOBIN 27.4 pg (27.0-33.4); MEAN CORPUSCULAR HGB CONC 33.1 g/dL (32.0-36.0); MEAN CORPUSCULAR VOLUME 83 fl (80-97); MONOCYTES % (AUTO) 8.7 % (3-13); PLATELET COUNT 397 10^3/uL (150-450); RED CELL DISTRIBUTION WIDTH 13.4 % (11.5-14.0); SEGMENTED NEUTROPHILS % (AUTO) 76.5 % (42-78); TOTAL CELLS COUNTED % (AUTO) 100 %; WHITE BLOOD COUNT 12.2 10^3/uL (4.0-10.5)
--- NOTE | 2019-05-20 09:52 | PDOC PROGRESS REPORT ---
Subjective Progress Note for:: 05/20/19 Reason For Visit: RIGHT LOWER EXTREMITY ARTERIAL INSUFFICENCY Physical Exam Vital Signs: Temp Pulse Resp BP Pulse Ox 98.6 F 92 18 168/59 H 98 05/20/19 08:16 05/20/19 08:16 05/20/19 08:16 05/20/19 08:16 05/20/19 08:16 Intake & Output 05/19/19 05/20/19 05/21/19 06:59 06:59 06:59 Intake Total 750 2474 350 Output Total 75 Balance 675 2474 350 Weight 54.2 kg 54.2 kg General appearance: PRESENT: mild distress Head exam: PRESENT: normocephalic Eye exam: PRESENT: EOMI Ear exam: PRESENT: normal external ear exam Mouth exam: PRESENT: moist Neck exam: PRESENT: full ROM Respiratory exam: PRESENT: clear to auscultation tom Cardiovascular exam: PRESENT: RRR Pulses: PRESENT: normal femoral pulses GI/Abdominal exam: PRESENT: soft Rectal exam: PRESENT: deferred Extremities exam: PRESENT: other - rt stump wound clean dry Neurological exam: PRESENT: alert, awake Psychiatric exam: PRESENT: anxious, depressed Skin exam: PRESENT: dry Results Laboratory Results: 05/20/19 05:33 05/19/19 05:20 05/20/19 05:33 WBC 12.2 H RBC 3.80 Hgb 10.4 L Hct 31.5 L MCV 83 MCH 27.4 MCHC 33.1 RDW 13.4 Plt Count 397 Seg Neutrophils % 76.5 Lymphocytes % 14.1 Monocytes % 8.7 Eosinophils % 0.1 Basophils % 0.6 Absolute Neutrophils 9.4 H Absolute Lymphocytes 1.7 Absolute Monocytes 1.1 Absolute Eosinophils 0.0 Absolute Basophils 0.1 05/18/19 05/18/19 05/18/19 12:10 12:10 13:23 Creatine Kinase Cancelled 348 H Troponin I Cancelled 05/18/19 13:23 Creatine Kinase Troponin I 0.054 Assessment & Plan - Plan Summary Plan Summary: s/p rt bka wound doing well will have pt eval
[2019-05-20] MEDS: INSULIN LISPRO 100 UNIT/ML 3 ML VIAL SUBCUT SCH ×4 (10:17→23:14)
[2019-05-20] MEDS: ENOXAPARIN SODIUM INJ 40 MG/0.4 ML DISP.SYRIN SUBCUT SCH (10:17)
[2019-05-20] MEDS: PREGABALIN 75 MG CAPSULE PO SCH ×2 (10:18→22:00)
[2019-05-20] MEDS: LISINOPRIL 10 MG TABLET PO SCH (10:18)
[2019-05-20] MEDS: ASPIRIN 81 MG TABLET, ENT COATED PO SCH (10:18)
[2019-05-20] MEDS: MORPHINE SULFATE 10 MG/ML INJ IV PRN ×2 (10:19→19:56)
[2019-05-20] MEDS: NORMAL SALINE 1000 ML 1,000 ML IV PRN (16:35)
[2019-05-20] MEDS ORDERED: LISINOPRIL 10 MG TABLET PO ONE (17:15)
[2019-05-20] MEDS: DOCUSATE SODIUM 100 MG CAPSULE PO SCH (21:59)
[2019-05-20] MEDS: VANCOMYCIN HCL 1,000 MG in DEXTROSE 5%-WATER 250 ML IV SCH (22:00)
[2019-05-20] MEDS: ATORVASTATIN CALCIUM 40 MG TABLET PO SCH (22:00)
[2019-05-21] MEDS: MORPHINE SULFATE 10 MG/ML INJ IV PRN ×2 (03:59→09:16)
[2019-05-21] MEDS: PIPERACILLIN SODIUM/TAZOBACTAM 3.375 GM in NORMAL SALINE 100 ML IV SCH ×3 (04:00→15:33)
[2019-05-21] MEDS: PANTOPRAZOLE SODIUM 40 MG TABLET.DR PO SCH (05:26)
[2019-05-21 05:54] LABS: ABSOLUTE LYMPHOCYTES (AUTO) 1.7 10^3/uL (0.5-4.7); ABSOLUTE MONOCYTES (AUTO) 1.1 10^3/uL (0.1-1.4); ABSOLUTE NEUT (AUTO) 10.4 10^3/uL (1.7-8.2); BASOPHILS % (AUTO) 0.3 % (0-2); HEMATOCRIT 31.2 % (36.0-47.0); HEMOGLOBIN 10.4 g/dL (12.0-15.5); LYMPHOCYTES % (AUTO) 12.4 % (13-45); MEAN CORPUSCULAR HEMOGLOBIN 27.5 pg (27.0-33.4); MEAN CORPUSCULAR HGB CONC 33.3 g/dL (32.0-36.0); MEAN CORPUSCULAR VOLUME 83 fl (80-97); MONOCYTES % (AUTO) 8.6 % (3-13); PLATELET COUNT 399 10^3/uL (150-450); RED BLOOD COUNT 3.77 10^6/uL (3.72-5.28); RED CELL DISTRIBUTION WIDTH 13.5 % (11.5-14.0); SEGMENTED NEUTROPHILS % (AUTO) 78.7 % (42-78); TOTAL CELLS COUNTED % (AUTO) 100 %; WHITE BLOOD COUNT 13.3 10^3/uL (4.0-10.5)
[2019-05-21] MEDS: LISINOPRIL 10 MG TABLET PO SCH (09:15)
[2019-05-21] MEDS: ENOXAPARIN SODIUM INJ 40 MG/0.4 ML DISP.SYRIN SUBCUT SCH (09:15)
[2019-05-21] MEDS: PREGABALIN 75 MG CAPSULE PO SCH ×2 (09:15→21:41)
[2019-05-21] MEDS: ASPIRIN 81 MG TABLET, ENT COATED PO SCH (09:15)
[2019-05-21] MEDS: NORMAL SALINE 1000 ML 1,000 ML IV PRN (09:17)
[2019-05-21] MEDS: INSULIN LISPRO 100 UNIT/ML 3 ML VIAL SUBCUT SCH ×4 (09:17→21:43)
--- NOTE | 2019-05-21 11:00 | PDOC PROGRESS REPORT ---
Subjective Progress Note for:: 05/21/19 Subjective:: Patient having some stomach pain; unable to extend lower leg. IV antibiotics bedrest Reason For Visit: RIGHT LOWER EXTREMITY ARTERIAL INSUFFICENCY Physical Exam Vital Signs: Temp Pulse Resp BP Pulse Ox 99.4 F 94 16 178/64 H 96 05/21/19 08:27 05/21/19 08:27 05/21/19 08:27 05/21/19 08:27 05/21/19 08:27 Intake & Output 05/20/19 05/21/19 05/22/19 06:59 06:59 06:59 Intake Total 2474 2700 350 Balance 2474 2700 350 Weight 54.2 kg 54 kg General appearance: PRESENT: no acute distress Musculoskeletal exam: PRESENT: other - Stump dressing dry and intact; no evidence of ischemia; dillon intact Results Laboratory Results: 05/21/19 05:23 05/19/19 05:20 05/21/19 05:23 WBC 13.3 H RBC 3.77 Hgb 10.4 L Hct 31.2 L MCV 83 MCH 27.5 MCHC 33.3 RDW 13.5 Plt Count 399 Seg Neutrophils % 78.7 H Lymphocytes % 12.4 L Monocytes % 8.6 Eosinophils % 0.0 Basophils % 0.3 Absolute Neutrophils 10.4 H Absolute Lymphocytes 1.7 Absolute Monocytes 1.1 Absolute Eosinophils 0.0 Absolute Basophils 0.0 05/18/19 05/18/19 05/18/19 12:10 12:10 13:23 Creatine Kinase Cancelled 348 H Troponin I Cancelled 05/18/19 13:23 Creatine Kinase Troponin I 0.054 Assessment & Plan - Diagnosis (1) Ischemic necrosis of foot Is this a current diagnosis for this admission?: Yes Plan: Impression: Patient is postoperative day 3 status post right BKA, no complications, deconditioned state. Recommendations: 1. We will get physical therapy involved 2. Can wean antibiotics off 3. Surgery will sign off; reconsult if needed; otherwise patient can follow-up with Dr. Humble Glaser and also surgical clinic in 1 to 2 weeks for wound check and sequential staple removal.
[2019-05-21] MEDS ORDERED: ONDANSETRON HCL INJ/PF 4 MG/2 ML SDV IV PRN (12:06)
--- NOTE | 2019-05-21 13:19 | PDOC PROGRESS REPORT ---
Subjective Progress Note for:: 05/21/19 Subjective:: Patient reported belching and nausea today. There is lower extremities pain that limit her participation in physical therapy session. Reason For Visit: RIGHT LOWER EXTREMITY ARTERIAL INSUFFICENCY Physical Exam Vital Signs: Temp Pulse Resp BP Pulse Ox 98.7 F 89 16 155/54 H 95 05/21/19 11:39 05/21/19 11:39 05/21/19 11:39 05/21/19 11:39 05/21/19 11:39 Intake & Output 05/20/19 05/21/19 05/22/19 06:59 06:59 06:59 Intake Total 2474 2700 450 Balance 2474 2700 450 Weight 54.2 kg 54 kg General appearance: PRESENT: mild distress - fromn pain and belching episodes Head exam: PRESENT: atraumatic, normocephalic Eye exam: PRESENT: conjunctiva pink. ABSENT: scleral icterus Ear exam: PRESENT: normal external ear exam Mouth exam: PRESENT: moist Respiratory exam: PRESENT: clear to auscultation tom Cardiovascular exam: PRESENT: RRR. ABSENT: diastolic murmur, rubs, systolic murmur Vascular exam: ABSENT: pallor GI/Abdominal exam: PRESENT: normal bowel sounds, soft. ABSENT: distended, guarding, mass, organolmegaly, rebound, tenderness Extremities exam: PRESENT: right BKA. ABSENT: pedal edema Neurological exam: PRESENT: alert, awake, oriented to person, oriented to place, oriented to time, oriented to situation, CN II-XII grossly intact. ABSENT: motor sensory deficit Psychiatric exam: PRESENT: appropriate affect, normal mood. ABSENT: homicidal ideation, suicidal ideation Skin exam: PRESENT: dry, warm, other - satisfactory dressing to right BKA surgical site. Results Laboratory Results: 05/21/19 05:23 05/19/19 05:20 05/21/19 05:23 WBC 13.3 H RBC 3.77 Hgb 10.4 L Hct 31.2 L MCV 83 MCH 27.5 MCHC 33.3 RDW 13.5 Plt Count 399 Seg Neutrophils % 78.7 H Lymphocytes % 12.4 L Monocytes % 8.6 Eosinophils % 0.0 Basophils % 0.3 Absolute Neutrophils 10.4 H Absolute Lymphocytes 1.7 Absolute Monocytes 1.1 Absolute Eosinophils 0.0 Absolute Basophils 0.0 05/18/19 05/18/19 05/18/19 12:10 12:10 13:23 Creatine Kinase Cancelled 348 H Troponin I Cancelled 05/18/19 13:23 Creatine Kinase Troponin I 0.054 Assessment & Plan - Diagnosis (1) PAD (peripheral artery disease) Is this a current diagnosis for this admission?: Yes Plan: Continue current medical management. Status post right BKA surgical intervention. (2) Ischemic necrosis of foot Is this a current diagnosis for this admission?: Yes Plan: Continue current medication management. (3) Surgical wound, non healing Qualifiers: Encounter type: initial encounter Qualified Code(s): T81.89XA - Other complications of procedures, not elsewhere classified, initial encounter Is this a current diagnosis for this admission?: Yes Plan: Continue daily dressing as per surgical team recommendations. (4) Diabetes mellitus, type II Qualifiers: Diabetes mellitus half-way insulin use: unspecified terminal gauger insulin use status Diabetes mellitus complication status: with other specified complication Qualified Code(s): E11.69 - Type 2 diabetes mellitus with other specified complication Is this a current diagnosis for this admission?: Yes Plan: Continue current medication and dietary limitation management. (5) Hyperlipidemia Qualifiers: Hyperlipidemia type: unspecified Qualified Code(s): E78.5 - Hyperlipidemia, unspecified Is this a current diagnosis for this admission?: Yes Plan: Continue current medication management. (6) Nausea Is this a current diagnosis for this admission?: Yes Plan: Start on Zofran 4 mg IV q 4 hours prn for nausea or vomiting. Start on Protonix 40 mg po daily for PUD prophylaxis and Simethicone 120 mg p.o qpchs prn for belching. - Time Time Spent with patient: 25-34 minutes Medications reviewed and adjusted accordingly: Yes Anticipated discharge: SNF - for short term rehabilitation management. - Inpatient Certification Based on my medical assessment, after consideration of the patient's comorbidities, presenting symptoms, or acuity I expect that the services needed warrant INPATIENT care.: Yes I certify that my determination is in accordance with my understanding of Medicare's requirements for reasonable and necessary INPATIENT services [42 CFR 412.3e].: Yes Medical Necessity: Significant Comorbidiites Make Outpatient Treatment Too Risky, Need Close Monitoring Due to Risk of Patient Decompensation, Need For IV Fluids, Need For Continuous Telemetry Monitoring, Need for Pain Control, Need for IV Antibiotics, Need for Surgery, Risk of Complication if Not Cared For in Hospital, Risk of Diagnosis Which Will Require Inpatient Eval/Care/Monitoring Post Hospital Care: D/C or Transfer Summary - Plan Summary Plan Summary: Continue current medication management. D/C wedding planner to evaluate for SNF placement for short term rehabilitation.
[2019-05-21] MEDS ORDERED: SIMETHICONE 80 MG TAB.CHEW PO PRN (13:20)
--- NOTE | 2019-05-21 13:28 | PDOC PROGRESS REPORT ---
Subjective Progress Note for:: 05/19/19 Subjective:: Patient denied any chest pain or difficulty with breathing. No reported fever or chills. No abdominal pain, nausea or vomiting. Tolerating oral feeding but limitation in intake. Reason For Visit: RIGHT LOWER EXTREMITY ARTERIAL INSUFFICENCY Physical Exam Vital Signs: Temp Pulse Resp BP Pulse Ox 98.3 F 76 22 H 187/53 H 97 05/19/19 03:54 05/19/19 03:54 05/19/19 03:54 05/19/19 03:54 05/19/19 03:54 Intake & Output 05/18/19 05/19/19 05/20/19 06:59 06:59 06:59 Intake Total 750 350 Output Total 75 Balance 675 350 Weight 54.2 kg Physical Exam: General appearance: PRESENT: mild distress - fromn pain and belching episodes Head exam: PRESENT: atraumatic, normocephalic Eye exam: PRESENT: conjunctiva pink. ABSENT: scleral icterus Ear exam: PRESENT: normal external ear exam Mouth exam: PRESENT: moist Respiratory exam: PRESENT: clear to auscultation tom Cardiovascular exam: PRESENT: RRR. ABSENT: diastolic murmur, rubs, systolic murmur Vascular exam: ABSENT: pallor GI/Abdominal exam: PRESENT: normal bowel sounds, soft. ABSENT: distended, guarding, mass, organolmegaly, rebound, tenderness Extremities exam: PRESENT: right BKA. ABSENT: pedal edema Neurological exam: PRESENT: alert, awake, oriented to person, oriented to place, oriented to time, oriented to situation, CN II-XII grossly intact. ABSENT: motor sensory deficit Psychiatric exam: PRESENT: appropriate affect, normal mood. ABSENT: homicidal ideation, suicidal ideation Skin exam: PRESENT: dry, warm, other - satisfactory dressing to right BKA surgical site. Results Laboratory Results: 05/19/19 05:20 05/19/19 05:20 05/18/19 05/18/19 05/18/19 12:10 12:10 12:10 WBC 15.4 H RBC 3.97 Hgb 11.0 L Hct 32.9 L MCV 83 MCH 27.7 MCHC 33.4 RDW 13.5 Plt Count 452 H Seg Neutrophils % 81.1 H Lymphocytes % 11.1 L Monocytes % 7.0 Eosinophils % 0.1 Basophils % 0.7 Absolute Neutrophils 12.5 H Absolute Lymphocytes 1.7 Absolute Monocytes 1.1 Absolute Eosinophils 0.0 Absolute Basophils 0.1 VBG pH VBG pCO2 VBG HCO3 VBG Base Excess Sodium Cancelled Potassium Cancelled Chloride Cancelled Carbon Dioxide Cancelled Anion Gap Cancelled BUN Cancelled Creatinine Cancelled Est GFR ( Amer) Cancelled Est GFR (Non-Af Amer) Cancelled Glucose Cancelled Lactic Acid 0.9 Calcium Cancelled Total Bilirubin Cancelled AST Cancelled ALT Cancelled Alkaline Phosphatase Cancelled Total Protein Cancelled Albumin Cancelled Urine Color Urine Appearance Urine pH Ur Specific [place] Urine Protein Urine Glucose (UA) Urine Ketones Urine Blood Urine Nitrite Ur Leukocyte Esterase Urine WBC (Auto) Urine RBC (Auto) 05/18/19 05/18/19 05/18/19 12:10 13:15 13:23 WBC RBC Hgb Hct MCV MCH MCHC RDW Plt Count Seg Neutrophils % Lymphocytes % Monocytes % Eosinophils % Basophils % Absolute Neutrophils Absolute Lymphocytes Absolute Monocytes Absolute Eosinophils Absolute Basophils VBG pH 7.47 H VBG pCO2 47.7 VBG HCO3 33.8 H VBG Base Excess 8.8 Sodium 140.7 Potassium 4.2 Chloride 101 Carbon Dioxide 29 Anion Gap 11 BUN 16 Creatinine 0.50 L Est GFR ( Amer) > 60 Est GFR (Non-Af Amer) > 60 Glucose 94 Lactic Acid Calcium 9.7 Total Bilirubin 0.4 AST 38 H ALT 27 Alkaline Phosphatase 150 H Total Protein 6.5 Albumin 3.2 L Urine Color YELLOW Urine Appearance SLIGHTLY-CLOUDY Urine pH 5.0 Ur Specific [place] 1.023 Urine Protein NEGATIVE Urine Glucose (UA) NEGATIVE Urine Ketones NEGATIVE Urine Blood NEGATIVE Urine Nitrite NEGATIVE Ur Leukocyte Esterase NEGATIVE Urine WBC (Auto) 2 Urine RBC (Auto) 0 05/19/19 05/19/19 05:20 05:20 WBC 9.7 RBC 3.96 Hgb 11.0 L Hct 32.6 L MCV 82 MCH 27.8 MCHC 33.7 RDW 13.7 Plt Count 431 Seg Neutrophils % 64.8 Lymphocytes % 25.5 Monocytes % 9.3 Eosinophils % 0.0 Basophils % 0.4 Absolute Neutrophils 6.3 Absolute Lymphocytes 2.5 Absolute Monocytes 0.9 Absolute Eosinophils 0.0 Absolute Basophils 0.0 VBG pH VBG pCO2 VBG HCO3 VBG Base Excess Sodium 139.0 Potassium 4.4 Chloride 101 Carbon Dioxide 30 Anion Gap 8 BUN 10 Creatinine 0.49 L Est GFR ( Amer) > 60 Est GFR (Non-Af Amer) > 60 Glucose 185 H Lactic Acid Calcium 9.5 Total Bilirubin 0.4 AST 32 ALT 30 Alkaline Phosphatase 138 H Total Protein 6.3 Albumin 3.0 L Urine Color Urine Appearance Urine pH Ur Specific [place] Urine Protein Urine Glucose (UA) Urine Ketones Urine Blood Urine Nitrite Ur Leukocyte Esterase Urine WBC (Auto) Urine RBC (Auto) 05/18/19 05/18/19 05/18/19 12:10 12:10 13:23 Creatine Kinase Cancelled 348 H Troponin I Cancelled 05/18/19 13:23 Creatine Kinase Troponin I 0.054 Assessment & Plan - Diagnosis (1) Diabetes mellitus, type II Qualifiers: Diabetes mellitus correction insulin use: 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 (2) Ischemic necrosis of foot Is this a current diagnosis for this admission?: Yes Plan: Continue current medication management. (3) PAD (peripheral artery disease) Is this a current diagnosis for this admission?: Yes Plan: Continue current medical management. Status post right BKA surgical intervention. (4) Surgical wound, non healing Qualifiers: Encounter type: initial encounter Qualified Code(s): T81.89XA - Other complications of procedures, not elsewhere classified, initial encounter Is this a current diagnosis for this admission?: Yes Plan: Continue daily dressing as per surgical team recommendations. (5) Hyperlipidemia Qualifiers: Hyperlipidemia type: unspecified Qualified Code(s): E78.5 - Hyperlipidemia, unspecified Is this a current diagnosis for this admission?: Yes Plan: Continue current medication management. - Time Time Spent with patient: 25-34 minutes Medications reviewed and adjusted accordingly: Yes Anticipated discharge: SNF Within: Other - Inpatient Certification Based on my medical assessment, after consideration of the patient's comorbidi ties, presenting symptoms, or acuity I expect that the services needed warrant INPATIENT care.: Yes I certify that my determination is in accordance with my understanding of David roy's requirements for reasonable and necessary INPATIENT services [42 CFR 412.3e].: Yes Medical Necessity: Significant Comorbidiites Make Outpatient Treatment Too Risky, Need Close Monitoring Due to Risk of Patient Decompensation, Need For IV Fluids, Need For Continuous Telemetry Monitoring, Need for Pain Control, Need for IV Antibiotics, Risk of Complication if Not Cared For in Hospital, Risk of Diagnosis Which Will Require Inpatient Eval/Care/Monitoring Post Hospital Care: D/C or Transfer Summary - Plan Summary Plan Summary: Follow up on blood culture findings. Continue current medication management.
--- NOTE | 2019-05-21 13:40 | PDOC PROGRESS REPORT ---
Subjective Progress Note for:: 05/20/19 Subjective:: Patient denied any chest pain or difficulty with breathing. No reported fever or chills. No abdominal pain, nausea or vomiting. Tolerating oral feeding but limitation in intake. Reason For Visit: RIGHT LOWER EXTREMITY ARTERIAL INSUFFICENCY Physical Exam Vital Signs: Temp Pulse Resp BP Pulse Ox 98.6 F 92 18 168/59 H 98 05/20/19 08:16 05/20/19 08:16 05/20/19 08:16 05/20/19 08:16 05/20/19 08:16 Intake & Output 05/19/19 05/20/19 05/21/19 06:59 06:59 06:59 Intake Total 750 2474 450 Output Total 75 Balance 675 2474 450 Weight 54.2 kg 54.2 kg Physical Exam: General appearance: PRESENT: No acute distress Head exam: PRESENT: atraumatic, normocephalic Eye exam: PRESENT: conjunctiva pink. ABSENT: pallor, scleral icterus Ear exam: PRESENT: normal external ear exam Mouth exam: PRESENT: moist Respiratory exam: PRESENT: clear to auscultation tom Cardiovascular exam: PRESENT: RRR. ABSENT: diastolic murmur, rubs, systolic murmur GI/Abdominal exam: PRESENT: normal bowel sounds, soft. ABSENT: distended, guarding, mass, organomegaly, rebound, tenderness Extremities exam: PRESENT: right BKA. ABSENT: pedal edema Neurological exam: PRESENT: alert, awake, oriented to person, oriented to place, oriented to time, oriented to situation, CN II-XII grossly intact. ABSENT: motor sensory deficit Psychiatric exam: PRESENT: appropriate affect, normal mood. ABSENT: homicidal ideation, suicidal ideation Skin exam: PRESENT: dry, warm, other - satisfactory dressing to right BKA surgical site. Results Laboratory Results: 05/20/19 05:33 05/19/19 05:20 05/20/19 05:33 WBC 12.2 H RBC 3.80 Hgb 10.4 L Hct 31.5 L MCV 83 MCH 27.4 MCHC 33.1 RDW 13.4 Plt Count 397 Seg Neutrophils % 76.5 Lymphocytes % 14.1 Monocytes % 8.7 Eosinophils % 0.1 Basophils % 0.6 Absolute Neutrophils 9.4 H Absolute Lymphocytes 1.7 Absolute Monocytes 1.1 Absolute Eosinophils 0.0 Absolute Basophils 0.1 05/18/19 05/18/19 05/18/19 12:10 12:10 13:23 Creatine Kinase Cancelled 348 H Troponin I Cancelled 05/18/19 13:23 Creatine Kinase Troponin I 0.054 Assessment & Plan - Diagnosis (1) Ischemic necrosis of foot Is this a current diagnosis for this admission?: Yes Plan: Maintain current medication management. (2) PAD (peripheral artery disease) Is this a current diagnosis for this admission?: Yes Plan: Maintain on current medical management. Status post right BKA surgical intervention. (3) Surgical wound, non healing Qualifiers: Encounter type: initial encounter Qualified Code(s): T81.89XA - Other complications of procedures, not elsewhere classified, initial encounter Is this a current diagnosis for this admission?: Yes Plan: Maintain current dressing as per surgical team recommendations. 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 (5) Hyperlipidemia Qualifiers: Hyperlipidemia type: unspecified Qualified Code(s): E78.5 - Hyperlipidemia, unspecified Is this a current diagnosis for this admission?: Yes Plan: Maintain on current medication management. - Time Time Spent with patient: 25-34 minutes Medications reviewed and adjusted accordingly: Yes Anticipated discharge: SNF Within: Other - Inpatient Certification Based on my medical assessment, after consideration of the patient's comorbidities, presenting symptoms, or acuity I expect that the services needed warrant INPATIENT care.: Yes I certify that my determination is in accordance with my understanding of Medicare's requirements for reasonable and necessary INPATIENT services [42 CFR 412.3e].: Yes Medical Necessity: Significant Comorbidiites Make Outpatient Treatment Too Risky, Need Close Monitoring Due to Risk of Patient Decompensation, Need For IV Fluids, Need For Continuous Telemetry Monitoring, Need for Pain Control, Need for IV Antibiotics, Risk of Complication if Not Cared For in Hospital, Risk of Diagnosis Which Will Require Inpatient Eval/Care/Monitoring Post Hospital Care: D/C or Transfer Summary - Plan Summary Plan Summary: Continue current medication management. I discussed possible SNF rehabilitation with patient upon discharge and she is in agreement.
--- NOTE | 2019-05-21 14:16 | PDOC H&P ---
History of Present Illness Admission Date/PCP: 05/18/19 14:21 VANGIE LARS History of Present Illness: CHARLEE CHING is a 73 year old female patient recently engaged with my practice who was referred to the ED from [facility] [place] after evaluation revealed worsening vascular integrity of her right lower extremity. She recently had vascular surgery intervention by Dr Mccracken at [facility]. She subsequently developed right foot dorsal wound dehiscent. There has been associated pain and coldness to touch of her right foot. Her evaluation today revealed purplish discoloration and further desquamation of soft tissue of her right foot with absence of dorsalis pedis and posterior tibialis arterial pulsation. There was associated exposure of her right foot extensor tendons. Her initial ED evaluation was significant for leukocytosis with left shift, thromboc ytosis, and abnormal urinalysis. Her morbidities include PAD, CAD s/p stent angioplasty, HLD, DVT, Diabetes Mellitus type 2, and Breast cancer s/p right mastectomy. Past Medical History Cardiac Medical History: Reports: Coronary Artery Disease, DVT, Peripheral Vascular Disease Denies: Myocardial Infarction, Hyperlipidema, Hypertension Pulmonary Medical History: Denies: Asthma Neurological Medical History: Denies: Seizures Endocrine Medical History: Reports: Diabetes Mellitus Type 2 Malignancy Medical History: Reports: Breast Cancer GI Medical History: Denies: Hepatitis, Hiatal Hernia Hematology: Denies: Anemia, Sickle Cell Disease Past Surgical History Past Surgical History: Reports: Coronary Stent, Mastectomy - RIGHT,RESTRICTED, Vascular Surgery - lower extremities at [facility] Denies: Amputation, Hysterectomy, Pacemaker Social History Lives with: Family Smoking Status: Never Smoker Frequency of Alcohol Use: None Hx Recreational Drug Use: No Drugs: None Hx Prescription Drug Abuse: No - Advance Directive Resuscitation Status: Full Code Family History Family History: Reviewed & Not Pertinent Parental Family History Reviewed: Yes Children Family History Reviewed: Yes Sibling(s) Family History Reviewed.: Yes Medication/Allergy Home Medications: Apixaban [Eliquis 5 mg Tablet] 5 mg PO Q12 05/18/19 Aspirin [Ecotrin 81 mg EC Tablet] 81 mg PO DAILY 05/18/19 Atorvastatin Calcium [Lipitor 40 mg Tablet] 40 mg PO QHS 05/18/19 Docusate Sodium [Colace 100 mg Capsule] 200 mg PO QHS 05/18/19 Glipizide [Glucotrol 10 mg Tablet] 10 mg PO DAILY 05/18/19 Insulin Aspart [Novolog Insulin (Aspart) 100 unit/mL] 8 units SQ MEALS 05/18/19 Insulin Glargine,Hum.rec.anlog [Lantus Insulin 100 Unit/1 ml 10 ml] 20 units SQ BID 05/18/19 Lisinopril [Prinivil 10 mg Tablet] 10 mg PO DAILY 05/18/19 Metformin HCl 850 mg PO BID 05/18/19 Oxycodone HCl/Acetaminophen [Percocet 5-325 mg Tablet] 1 tab PO Q6HP PRN 05/18/19 Pregabalin [Lyrica] 150 mg PO Q12 05/18/19 Allergies/Adverse Reactions: No Known Allergies Allergy (Verified 04/07/19 11:30) Review of Systems Constitutional: PRESENT: fatigue, weakness - generalized. ABSENT: anorexia, chills, fever(s) Eyes: ABSENT: visual disturbances Ears: ABSENT: hearing changes Nose, Mouth, and Throat: ABSENT: headache(s) Cardiovascular: PRESENT: edema - right foot. ABSENT: chest pain, dyspnea on exertion, orthropnea, palpitations Respiratory: ABSENT: cough, hemoptysis Gastrointestinal: ABSENT: abdominal pain, constipation, diarrhea, hematemesis, hematochezia, nausea, vomiting Genitourinary: ABSENT: dysuria, hematuria Musculoskeletal: PRESENT: deformity - right foot, joint swelling - right ankle joint, muscle weakness - generalized Integumentary: PRESENT: wounds - right foot. ABSENT: diaphoresis Neurological: ABSENT: abnormal gait, abnormal speech, confusion, dizziness, focal weakness, syncope Psychiatric: ABSENT: anxiety, depression, homidical ideation, suicidal ideation Endocrine: ABSENT: cold intolerance, heat intolerance, polydipsia, polyuria Hematologic/Lymphatic: ABSENT: easy bleeding, easy bruising, lymphadenopathy Allergic/Immunologic: ABSENT: seasonal rhinorrhea Physical Exam Vital Signs: Temp Pulse Resp BP Pulse Ox 98.8 F 72 15 148/58 H 95 05/18/19 16:02 05/18/19 16:02 05/18/19 19:01 05/18/19 19:01 05/18/19 19:01 Intake & Output 05/17/19 05/18/19 05/19/19 06:59 06:59 06:59 Weight 58.9 kg General appearance: PRESENT: mild distress - from right foot pain Head exam: PRESENT: atraumatic, normocephalic Eye exam: PRESENT: conjunctiva pink, EOMI, PERRLA. ABSENT: scleral icterus Ear exam: PRESENT: normal external ear exam Mouth exam: PRESENT: moist Neck exam: PRESENT: full ROM. ABSENT: carotid bruit, JVD, lymphadenopathy, thyromegaly Respiratory exam: PRESENT: clear to auscultation tom Cardiovascular exam: PRESENT: RRR. ABSENT: diastolic murmur, rubs, systolic murmur Pulses: PRESENT: other - absent right foot pulses Vascular exam: ABSENT: pallor GI/Abdominal exam: PRESENT: normal bowel sounds, soft. ABSENT: distended, guarding, mass, organolmegaly, rebound, tenderness Rectal exam: PRESENT: deferred Extremities exam: PRESENT: pedal edema - right foot and ankle joint Musculoskeletal exam: PRESENT: tenderness - right lower extremities to palpation and movement Neurological exam: PRESENT: alert, awake, oriented to person, oriented to place, oriented to time, oriented to situation, CN II-XII grossly intact. ABSENT: motor sensory deficit Psychiatric exam: PRESENT: agitated - due to pain in right foot. ABSENT: homicidal ideation, suicidal ideation Skin exam: PRESENT: dry, warm, other - right foot dehiscent wound on dorsal region Results Laboratory Results: 05/18/19 12:10 05/18/19 13:23 05/18/19 05/18/19 05/18/19 12:10 12:10 12:10 WBC 15.4 H RBC 3.97 Hgb 11.0 L Hct 32.9 L MCV 83 MCH 27.7 MCHC 33.4 RDW 13.5 Plt Count 452 H Seg Neutrophils % 81.1 H Lymphocytes % 11.1 L Monocytes % 7.0 Eosinophils % 0.1 Basophils % 0.7 Absolute Neutrophils 12.5 H Absolute Lymphocytes 1.7 Absolute Monocytes 1.1 Absolute Eosinophils 0.0 Absolute Basophils 0.1 VBG pH VBG pCO2 VBG HCO3 VBG Base Excess Sodium Cancelled Potassium Cancelled Chloride Cancelled Carbon Dioxide Cancelled Anion Gap Cancelled BUN Cancelled Creatinine Cancelled Est GFR ( Amer) Cancelled Est GFR (Non-Af Amer) Cancelled Glucose Cancelled Lactic Acid 0.9 Calcium Cancelled Total Bilirubin Cancelled AST Cancelled ALT Cancelled Alkaline Phosphatase Cancelled Total Protein Cancelled Albumin Cancelled Urine Color Urine Appearance Urine pH Ur Specific [place] Urine Protein Urine Glucose (UA) Urine Ketones Urine Blood Urine Nitrite Ur Leukocyte Esterase Urine WBC (Auto) Urine RBC (Auto) 05/18/19 05/18/19 05/18/19 12:10 13:15 13:23 WBC RBC Hgb Hct MCV MCH MCHC RDW Plt Count Seg Neutrophils % Lymphocytes % Monocytes % Eosinophils % Basophils % Absolute Neutrophils Absolute Lymphocytes Absolute Monocytes Absolute Eosinophils Absolute Basophils VBG pH 7.47 H VBG pCO2 47.7 VBG HCO3 33.8 H VBG Base Excess 8.8 Sodium 140.7 Potassium 4.2 Chloride 101 Carbon Dioxide 29 Anion Gap 11 BUN 16 Creatinine 0.50 L Est GFR ( Amer) > 60 Est GFR (Non-Af Amer) > 60 Glucose 94 Lactic Acid Calcium 9.7 Total Bilirubin 0.4 AST 38 H ALT 27 Alkaline Phosphatase 150 H Total Protein 6.5 Albumin 3.2 L Urine Color YELLOW Urine Appearance SLIGHTLY-CLOUDY Urine pH 5.0 Ur Specific [place] 1.023 Urine Protein NEGATIVE Urine Glucose (UA) NEGATIVE Urine Ketones NEGATIVE Urine Blood NEGATIVE Urine Nitrite NEGATIVE Ur Leukocyte Esterase NEGATIVE Urine WBC (Auto) 2 Urine RBC (Auto) 0 05/18/19 05/18/19 05/18/19 12:10 12:10 13:23 Creatine Kinase Cancelled 348 H Troponin I Cancelled 05/18/19 13:23 Creatine Kinase Troponin I 0.054 Assessment & Plan - Diagnosis (1) PAD (peripheral artery disease) Is this a current diagnosis for this admission?: Yes Plan: See admitting attending physician orders for care plan details. (2) Ischemic necrosis of foot Is this a current diagnosis for this admission?: Yes Plan: See admitting attending physician orders for care plan details. Surgery consult in progress and plan for surgical intervention was discussed with patient and family at bedside including sisters and brother. They are in agreement with surgical intervention which is very necessary in view of her severe vascular disease process. Her elevated CK level may be due to muscle ischemia than cardiac source. (3) Wound of foot Is this a current diagnosis for this admission?: Yes Plan: Dehiscent wound on right foot with failure to heal. She will need right leg amputation and level of intervention will be determined in the operating room. (4) Diabetes mellitus, type II Qualifiers: Diabetes mellitus alf insulin use: unspecified alf insulin use status Diabetes mellitus complication status: with other specified complication Qualified Code(s): E11.69 - Type 2 diabetes mellitus with other specified complication Is this a current diagnosis for this admission?: Yes Plan: Maintain on sliding scale Humalog insulin coverage pending her post operative oral intake. (5) CAD (coronary artery disease) Qualifiers: Coronary Disease-Associated Artery/Lesion type: [place] artery [place] vs. transplanted heart: [place] heart Associated angina: without angina Qualified Code(s): I25.10 - Atherosclerotic heart disease of [place] coronary artery without angina pectoris Is this a current diagnosis for this admission?: Yes Plan: Continue preadmission medication management. (6) Hyperlipidemia Qualifiers: Hyperlipidemia type: unspecified Qualified Code(s): E78.5 - Hyperlipidemia, unspecified Is this a current diagnosis for this admission?: Yes Plan: Maintain on pre admission medication and dietary management. - Time Time Spent: 50 to 70 Minutes Medications reviewed and adjusted accordingly: Yes Anticipated discharge: SNF Within: Other - Inpatient Certification Based on my medical assessment, after consideration of the patient's comorbidities, presenting symptoms, or acuity I expect that the services needed warrant INPATIENT care.: Yes I certify that my determination is in accordance with my understanding of Medicare's requirements for reasonable and necessary INPATIENT services [42 CFR 412.3e].: Yes Medical Necessity: Significant Comorbidiites Make Outpatient Treatment Too Risky, Need Close Monitoring Due to Risk of Patient Decompensation, Need For IV Fluids, Need For Continuous Telemetry Monitoring, Need for Pain Control, Need for IV Antibiotics, Need for Surgery, Risk of Complication if Not Cared For in Hospital, Risk of Diagnosis Which Will Require Inpatient Eval/Care/Monitoring Post Hospital Care: D/C or Transfer Summary - Plan Summary Plan Summary: See admitting physician orders for details about care plan. follow up on surgical consult recommendation and findings.
[2019-05-21] MEDS ORDERED: KETOROLAC TROMETHAMINE 10 MG TABLET PO PRN (15:50)
[2019-05-21] MEDS ORDERED: BISACODYL 10 MG SUPP.RECT PR ONE (16:00)
[2019-05-21] MEDS ORDERED: AMLODIPINE BESYLATE 5 MG TABLET PO ONE (21:15)
[2019-05-21] MEDS: DOCUSATE SODIUM 100 MG CAPSULE PO SCH (21:41)
[2019-05-21] MEDS: ATORVASTATIN CALCIUM 40 MG TABLET PO SCH (21:41)
[2019-05-21] MEDS: SENNOSIDES/DOCUSATE 8.6-50 MG 1 EACH TABLET PO SCH (21:41)
[2019-05-21 22:52] LABS: VANCOMYCIN,TROUGH < 5.0 ug/mL (5.0-20.0)
[2019-05-22] MEDS: OXYCODONE-ACETAMINOPHEN 5-325 MG TABLET PO PRN ×3 (02:59→20:51)
[2019-05-22] MEDS: PANTOPRAZOLE SODIUM 40 MG TABLET.DR PO SCH (05:11)
[2019-05-22] MEDS: INSULIN LISPRO 100 UNIT/ML 3 ML VIAL SUBCUT SCH ×4 (07:53→22:05)
[2019-05-22] MEDS: LISINOPRIL 10 MG TABLET PO SCH (09:02)
[2019-05-22] MEDS: AMLODIPINE BESYLATE 5 MG TABLET PO SCH (09:03)
[2019-05-22] MEDS: ASPIRIN 81 MG TABLET, ENT COATED PO SCH (09:03)
[2019-05-22] MEDS: PREGABALIN 75 MG CAPSULE PO SCH ×2 (09:03→22:05)
[2019-05-22] MEDS: ENOXAPARIN SODIUM INJ 40 MG/0.4 ML DISP.SYRIN SUBCUT SCH (09:03)
--- NOTE | 2019-05-22 12:48 | PDOC PROGRESS REPORT ---
Subjective Progress Note for:: 05/22/19 Subjective:: Patient had satisfactory bowel movement since last evaluation. No abdominal pain, nausea or vomiting. Tolerating oral feeding. She denied any chest pain or difficulty with breathing. No reported fever or chills. Reason For Visit: RIGHT LOWER EXTREMITY ARTERIAL INSUFFICENCY Physical Exam Vital Signs: Temp Pulse Resp BP Pulse Ox 97.7 F 73 20 151/53 H 96 05/22/19 11:35 05/22/19 11:35 05/22/19 11:35 05/22/19 11:35 05/22/19 11:35 Intake & Output 05/21/19 05/22/19 05/23/19 06:59 06:59 06:59 Intake Total 2700 1862 240 Output Total 60 200 Balance 2700 1802 40 Weight 54 kg 56.3 kg Physical Exam: General appearance: PRESENT: mild distress - fromn pain and belching episodes Head exam: PRESENT: atraumatic, normocephalic Eye exam: PRESENT: conjunctiva pink. ABSENT: pallor, scleral icterus Ear exam: PRESENT: normal external ear exam Mouth exam: PRESENT: moist Respiratory exam: PRESENT: clear to auscultation tom Cardiovascular exam: PRESENT: RRR. ABSENT: diastolic murmur, rubs, systolic murmur GI/Abdominal exam: PRESENT: normal bowel sounds, soft. ABSENT: distended, guarding, mass, organomegaly, rebound, tenderness Extremities exam: PRESENT: right BKA. ABSENT: pedal edema Neurological exam: PRESENT: alert, awake, oriented to person, oriented to place, oriented to time, oriented to situation, CN II-XII grossly intact. ABSENT: motor sensory deficit Psychiatric exam: PRESENT: appropriate affect, normal mood. ABSENT: homicidal ideation, suicidal ideation Skin exam: PRESENT: dry, warm, other - satisfactory dressing to right BKA surgical site. Results Laboratory Results: 05/21/19 05:23 05/19/19 05:20 05/18/19 05/18/19 05/18/19 12:10 12:10 13:23 Creatine Kinase Cancelled 348 H Troponin I Cancelled 05/18/19 13:23 Creatine Kinase Troponin I 0.054 Assessment & Plan - Diagnosis (1) PAD (peripheral artery disease) Is this a current diagnosis for this admission?: Yes (2) Ischemic necrosis of foot Is this a current diagnosis for this admission?: Yes (3) Wound of foot Is this a current diagnosis for this admission?: Yes (4) Diabetes mellitus, type II Qualifiers: Diabetes mellitus correction insulin use: unspecified supervisor intermediates insulin use status Diabetes mellitus complication status: with other specified compl ication Qualified Code(s): E11.69 - Type 2 diabetes mellitus with other s pecified complication Is this a current diagnosis for this admission?: Yes (5) CAD (coronary artery disease) Qualifiers: Coronary Disease-Associated Artery/Lesion type: [place] artery [place] vs. transplanted heart: [place] heart Associated angina: without angina Qualified Code(s): I25.10 - Atherosclerotic heart disease of [place] coronary artery without angina pectoris Is this a current diagnosis for this admission?: Yes (6) Hyperlipidemia Qualifiers: Hyperlipidemia type: unspecified Qualified Code(s): E78.5 - Hyperlipidemia, unspecified Is this a current diagnosis for this admission?: Yes - Time Time Spent with patient: 25-34 minutes Medications reviewed and adjusted accordingly: Yes Anticipated discharge: SNF Within: Other - Inpatient Certification Based on my medical assessment, after consideration of the patient's comorbidities, presenting symptoms, or acuity I expect that the services needed warrant INPATIENT care.: Yes I certify that my determination is in accordance with my understanding of Medicare's requirements for reasonable and necessary INPATIENT services [42 CFR 412.3e].: Yes Medical Necessity: Significant Comorbidiites Make Outpatient Treatment Too Risky, Need Close Monitoring Due to Risk of Patient Decompensation, Need For Continuous Telemetry Monitoring, Need for IV Antibiotics, Risk of Complication if Not Cared For in Hospital, Risk of Diagnosis Which Will Require Inpatient Eval/Care/Monitoring Post Hospital Care: D/C or Transfer Summary - Plan Summary Plan Summary: Continue IV antibiotic therapy and follow up on blood culture findings. Agreeable to SNF rehabilitation upon discharge.
[2019-05-22] MEDS: DOCUSATE SODIUM 100 MG CAPSULE PO SCH (21:24)
[2019-05-22] MEDS: SENNOSIDES/DOCUSATE 8.6-50 MG 1 EACH TABLET PO SCH (21:24)
[2019-05-22] MEDS: ATORVASTATIN CALCIUM 40 MG TABLET PO SCH (22:05)
--- NOTE | 2019-05-22 23:14 | EKG REPORT ---
SEVERITY:- BORDERLINE ECG - SINUS RHYTHM BORDERLINE T ABNORMALITIES, DIFFUSE LEADS : Confirmed by: Shanelle Marroquin MD 22-May-2019 23:12:48
[2019-05-23] MEDS: OXYCODONE-ACETAMINOPHEN 5-325 MG TABLET PO PRN ×4 (00:58→17:49)
[2019-05-23] MEDS: PANTOPRAZOLE SODIUM 40 MG TABLET.DR PO SCH (05:44)
[2019-05-23] MEDS: INSULIN LISPRO 100 UNIT/ML 3 ML VIAL SUBCUT SCH ×4 (08:50→21:53)
[2019-05-23] MEDS: AMLODIPINE BESYLATE 5 MG TABLET PO SCH (09:55)
[2019-05-23] MEDS: LISINOPRIL 10 MG TABLET PO SCH (09:56)
[2019-05-23] MEDS: PREGABALIN 75 MG CAPSULE PO SCH ×2 (09:57→21:53)
[2019-05-23] MEDS: ASPIRIN 81 MG TABLET, ENT COATED PO SCH (09:58)
[2019-05-23] MEDS: ENOXAPARIN SODIUM INJ 40 MG/0.4 ML DISP.SYRIN SUBCUT SCH (10:02)
[2019-05-23 10:57] LABS: ANION GAP 6 (5-19); BLOOD UREA NITROGEN 10 mg/dL (7-20); CALCIUM 9.1 mg/dL (8.4-10.2); CARBON DIOXIDE 33 mmol/L (22-30); CHLORIDE 100 mmol/L (98-107); GLUCOSE 277 mg/dL (75-110); POTASSIUM 3.9 mmol/L (3.6-5.0)
[2019-05-23] MEDS: SENNOSIDES/DOCUSATE 8.6-50 MG 1 EACH TABLET PO SCH (21:34)
[2019-05-23] MEDS: DOCUSATE SODIUM 100 MG CAPSULE PO SCH (21:34)
[2019-05-23] MEDS: ATORVASTATIN CALCIUM 40 MG TABLET PO SCH (21:53)
--- NOTE | 2019-05-23 22:14 | PDOC PROGRESS REPORT ---
Subjective Progress Note for:: 05/23/19 Subjective:: Patient denied chest pain or difficulty with breathing. No abdominal pain, nausea or vomiting. No reported fever or chills. Reason For Visit: RIGHT LOWER EXTREMITY ARTERIAL INSUFFICENCY Physical Exam Vital Signs: Temp Pulse Resp BP Pulse Ox 98.7 F 76 16 136/56 H 95 05/23/19 16:12 05/23/19 16:12 05/23/19 16:12 05/23/19 16:12 05/23/19 16:12 Intake & Output 05/22/19 05/23/19 05/24/19 06:59 06:59 06:59 Intake Total 1862 1670 477 Output Total 60 400 Balance 1802 1270 477 Weight 56.3 kg 56 kg Physical Exam: General appearance: PRESENT: mild distress - fromn pain and belching episodes Head exam: PRESENT: atraumatic, normocephalic Eye exam: PRESENT: conjunctiva pink. ABSENT: pallor, scleral icterus Ear exam: PRESENT: normal external ear exam Mouth exam: PRESENT: moist Respiratory exam: PRESENT: clear to auscultation tom Cardiovascular exam: PRESENT: RRR. ABSENT: diastolic murmur, rubs, systolic m urmur GI/Abdominal exam: PRESENT: normal bowel sounds, soft. ABSENT: distended, guarding, mass, organomegaly, rebound, tenderness Extremities exam: PRESENT: right BKA. ABSENT: pedal edema Neurological exam: PRESENT: alert, awake, oriented to person, oriented to place, oriented to time, oriented to situation, CN II-XII grossly intact. ABSENT: motor sensory deficit Psychiatric exam: PRESENT: appropriate affect, normal mood. ABSENT: homicidal ideation, suicidal ideation Skin exam: PRESENT: dry, warm, other - satisfactory dressing to right BKA surgical site. Results Laboratory Results: 05/21/19 05:23 05/23/19 10:19 05/23/19 10:19 Sodium 139.1 Potassium 3.9 Chloride 100 Carbon Dioxide 33 H Anion Gap 6 BUN 10 Creatinine 0.50 L Est GFR ( Amer) > 60 Est GFR (Non-Af Amer) > 60 Glucose 277 H Calcium 9.1 Magnesium 1.9 05/18/19 05/18/19 05/18/19 12:10 12:10 13:23 Creatine Kinase Cancelled 348 H Troponin I Cancelled 05/18/19 13:23 Creatine Kinase Troponin I 0.054 Assessment & Plan - Diagnosis (1) PAD (peripheral artery disease) Is this a current diagnosis for this admission?: Yes (2) Ischemic necrosis of foot Is this a current diagnosis for this admission?: Yes (3) Wound of foot Is this a current diagnosis for this admission?: Yes (4) Diabetes mellitus, type II Qualifiers: Diabetes mellitus long-term insulin use: 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 transplanted heart: [place] heart Associated angina: without angina Qualified Code(s): I25.10 - Atherosclerotic heart disease of [place] coronary artery without angina pectoris Is this a current diagnosis for this admission?: Yes (6) Hyperlipidemia Qualifiers: Hyperlipidemia type: unspecified Qualified Code(s): E78.5 - Hyperlipidemia, unspecified Is this a current diagnosis for this admission?: Yes - Time Time Spent with patient: 25-34 minutes Medications reviewed and adjusted accordingly: Yes Anticipated discharge: SNF Within: Other - Inpatient Certification Based on my medical assessment, after consideration of the patient's comorbidities, presenting symptoms, or acuity I expect that the services needed warrant INPATIENT care.: Yes I certify that my determination is in accordance with my understanding of Medicare's requirements for reasonable and necessary INPATIENT services [42 CFR 412.3e].: Yes Medical Necessity: Significant Comorbidiites Make Outpatient Treatment Too Risky, Need Close Monitoring Due to Risk of Patient Decompensation, Need For Continuous Telemetry Monitoring, Risk of Complication if Not Cared For in Hospital, Risk of Diagnosis Which Will Require Inpatient Eval/Care/Monitoring Post Hospital Care: D/C or Transfer Summary - Plan Summary Plan Summary: Start on Norvasc 5 mg po daily. Restart on Metformin and Glipizide therapy. Continue all other current medication management. Follow up on SNF placement.
[2019-05-24] MEDS: OXYCODONE-ACETAMINOPHEN 5-325 MG TABLET PO PRN ×4 (01:45→18:06)
[2019-05-24] MEDS: PANTOPRAZOLE SODIUM 40 MG TABLET.DR PO SCH (05:40)
[2019-05-24 06:03] LABS: ABSOLUTE LYMPHOCYTES (AUTO) 1.8 10^3/uL (0.5-4.7); ABSOLUTE MONOCYTES (AUTO) 0.7 10^3/uL (0.1-1.4); ABSOLUTE NEUT (AUTO) 4.1 10^3/uL (1.7-8.2); BASOPHILS % (AUTO) 0.6 % (0-2); HEMATOCRIT 29.4 % (36.0-47.0); HEMOGLOBIN 9.9 g/dL (12.0-15.5); LYMPHOCYTES % (AUTO) 27.2 % (13-45); MEAN CORPUSCULAR HEMOGLOBIN 27.8 pg (27.0-33.4); MEAN CORPUSCULAR HGB CONC 33.7 g/dL (32.0-36.0); MEAN CORPUSCULAR VOLUME 83 fl (80-97); MONOCYTES % (AUTO) 10.4 % (3-13); PLATELET COUNT 398 10^3/uL (150-450); RED BLOOD COUNT 3.56 10^6/uL (3.72-5.28); RED CELL DISTRIBUTION WIDTH 13.7 % (11.5-14.0); SEGMENTED NEUTROPHILS % (AUTO) 61.8 % (42-78); TOTAL CELLS COUNTED % (AUTO) 100 %; WHITE BLOOD COUNT 6.7 10^3/uL (4.0-10.5)
[2019-05-24 06:19] LABS: ALBUMIN 2.6 g/dL (3.5-5.0); ALKALINE PHOSPHATASE 148 U/L (38-126); ANION GAP 10 (5-19); ASPARTATE AMINO TRANSFERASE 31 U/L (14-36); BILIRUBIN,DIRECT 0.1 mg/dL (0.0-0.4); BILIRUBIN,TOTAL 0.1 mg/dL (0.2-1.3); BLOOD UREA NITROGEN 11 mg/dL (7-20); CALCIUM 9.1 mg/dL (8.4-10.2); CARBON DIOXIDE 30 mmol/L (22-30); CHLORIDE 98 mmol/L (98-107); GLUCOSE 276 mg/dL (75-110); POTASSIUM 4.4 mmol/L (3.6-5.0); TOTAL PROTEIN 5.4 g/dL (6.3-8.2)
[2019-05-24] MEDS: ENOXAPARIN SODIUM INJ 40 MG/0.4 ML DISP.SYRIN SUBCUT SCH (09:18)
[2019-05-24] MEDS: ASPIRIN 81 MG TABLET, ENT COATED PO SCH (09:18)
[2019-05-24] MEDS: LISINOPRIL 10 MG TABLET PO SCH (09:18)
[2019-05-24] MEDS: GLIPIZIDE 10 MG TABLET PO SCH (09:19)
[2019-05-24] MEDS: AMLODIPINE BESYLATE 5 MG TABLET PO SCH (09:19)
[2019-05-24] MEDS: PREGABALIN 75 MG CAPSULE PO SCH ×2 (09:20→21:59)
[2019-05-24] MEDS: INSULIN LISPRO 100 UNIT/ML 3 ML VIAL SUBCUT SCH ×4 (09:23→22:02)
[2019-05-24] MEDS: METFORMIN HCL 850 MG TABLET PO SCH ×2 (10:16→18:06)
--- NOTE | 2019-05-24 18:36 | PDOC PROGRESS REPORT ---
Subjective Progress Note for:: 05/24/19 Subjective:: Patient denied chest pain or difficulty with breathing. No abdominal pain, nausea or vomiting. Tolerating oral intake. No reported fever or chills. Look forward to PT session and SNF rehabilitation plan. Reason For Visit: RIGHT LOWER EXTREMITY ARTERIAL INSUFFICENCY Physical Exam Vital Signs: Temp Pulse Resp BP Pulse Ox 98.1 F 75 18 158/60 H 100 05/24/19 15:45 05/24/19 15:45 05/24/19 15:45 05/24/19 15:45 05/24/19 15:45 Intake & Output 05/23/19 05/24/19 05/25/19 06:59 06:59 06:59 Intake Total 1670 727 115 Output Total 400 Balance 1270 727 115 Weight 56 kg 55.3 kg Physical Exam: General appearance: PRESENT: mild distress - fromn pain and belching episodes Head exam: PRESENT: atraumatic, normocephalic Eye exam: PRESENT: conjunctiva pink. ABSENT: pallor, scleral icterus Ear exam: PRESENT: normal external ear exam Mouth exam: PRESENT: moist Respiratory exam: PRESENT: clear to auscultation tom Cardiovascular exam: PRESENT: RRR. ABSENT: diastolic murmur, rubs, systolic murmur GI/Abdominal exam: PRESENT: normal bowel sounds, soft. ABSENT: distended, guarding, mass, organomegaly, rebound, tenderness Extremities exam: PRESENT: right BKA. ABSENT: pedal edema Neurological exam: PRESENT: alert, awake, oriented to person, oriented to place, oriented to time, oriented to situation, CN II-XII grossly intact. ABSENT: motor sensory deficit Psychiatric exam: PRESENT: appropriate affect, normal mood. ABSENT: homicidal ideation, suicidal ideation Skin exam: PRESENT: dry, warm, other - satisfactory dressing to right BKA surgical site. Results Laboratory Results: 05/24/19 05:17 05/24/19 05:17 05/24/19 05/24/19 05:17 05:17 WBC 6.7 RBC 3.56 L Hgb 9.9 L Hct 29.4 L MCV 83 MCH 27.8 MCHC 33.7 RDW 13.7 Plt Count 398 Seg Neutrophils % 61.8 Lymphocytes % 27.2 Monocytes % 10.4 Eosinophils % 0.0 Basophils % 0.6 Absolute Neutrophils 4.1 Absolute Lymphocytes 1.8 Absolute Monocytes 0.7 Absolute Eosinophils 0.0 Absolute Basophils 0.0 Sodium 137.7 Potassium 4.4 Chloride 98 Carbon Dioxide 30 Anion Gap 10 BUN 11 Creatinine 0.44 L Est GFR ( Amer) > 60 Est GFR (Non-Af Amer) > 60 Glucose 276 H Calcium 9.1 Total Bilirubin 0.1 L AST 31 Alkaline Phosphatase 148 H Total Protein 5.4 L Albumin 2.6 L 05/18/19 05/18/19 05/18/19 12:10 12:10 13:23 Creatine Kinase Cancelled 348 H Troponin I Cancelled 05/18/19 13:23 Creatine Kinase Troponin I 0.054 Assessment & Plan - Diagnosis (1) PAD (peripheral artery disease) Is this a current diagnosis for this admission?: Yes (2) Ischemic necrosis of foot Is this a current diagnosis for this admission?: Yes (3) Wound of foot Is this a current diagnosis for this admission?: Yes (4) Diabetes mellitus, type II 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 transplanted heart: [place] heart Associated angina: without angina Qualified Code(s): I25.10 - Atherosclerotic heart disease of [place] coronary artery without angina pectoris Is this a current diagnosis for this admission?: Yes (6) Hyperlipidemia Qualifiers: Hyperlipidemia type: unspecified Qualified Code(s): E78.5 - Hyperlipidemia, unspecified Is this a current diagnosis for this admission?: Yes - Time Time Spent with patient: 25-34 minutes Anticipated discharge: SNF Within: Other - Inpatient Certification Based on my medical assessment, after consideration of the patient's comorbidities, presenting symptoms, or acuity I expect that the services needed warrant INPATIENT care.: Yes I certify that my determination is in accordance with my understanding of Medicare's requirements for reasonable and necessary INPATIENT services [42 CFR 412.3e].: Yes Medical Necessity: Significant Comorbidiites Make Outpatient Treatment Too Risky, Need Close Monitoring Due to Risk of Patient Decompensation, Need For IV Fluids, Need For Continuous Telemetry Monitoring, Risk of Complication if Not Cared For in Hospital, Risk of Diagnosis Which Will Require Inpatient Eval/Care/Monitoring Post Hospital Care: D/C or Transfer Summary - Plan Summary Plan Summary: Restart her on Lantus Insulin 20 units SC bid. Continue all other current medication management. Follow up with account planner regarding SNF placement for short term rehabilitation.
[2019-05-24] MEDS: SENNOSIDES/DOCUSATE 8.6-50 MG 1 EACH TABLET PO SCH (21:49)
[2019-05-24] MEDS: DOCUSATE SODIUM 100 MG CAPSULE PO SCH (21:49)
[2019-05-24] MEDS: ATORVASTATIN CALCIUM 40 MG TABLET PO SCH (21:59)
[2019-05-24] MEDS: INSULIN GLARGINE,HUM.REC.ANLOG 1,000 UNIT/10 ML VIAL SUBCUT SCH (22:04)
[2019-05-25] MEDS: PANTOPRAZOLE SODIUM 40 MG TABLET.DR PO SCH (05:53)
[2019-05-25] MEDS: OXYCODONE-ACETAMINOPHEN 5-325 MG TABLET PO PRN ×4 (05:54→20:17)
--- NOTE | 2019-05-25 07:51 | EKG REPORT ---
SEVERITY:- ABNORMAL ECG - SINUS RHYTHM NONSPECIFIC INTRAVENTRICULAR CONDUCTION DELAY MINIMAL ST DEPRESSION, INFERIOR LEADS : Confirmed by: Philippe Blackmon MD 25-May-2019 07:50:37
[2019-05-25] MEDS: PREGABALIN 75 MG CAPSULE PO SCH ×2 (10:41→21:51)
[2019-05-25] MEDS: ENOXAPARIN SODIUM INJ 40 MG/0.4 ML DISP.SYRIN SUBCUT SCH (10:41)
[2019-05-25] MEDS: LISINOPRIL 10 MG TABLET PO SCH (10:42)
[2019-05-25] MEDS: INSULIN LISPRO 100 UNIT/ML 3 ML VIAL SUBCUT SCH ×4 (10:42→21:47)
[2019-05-25] MEDS: ASPIRIN 81 MG TABLET, ENT COATED PO SCH (10:42)
[2019-05-25] MEDS: AMLODIPINE BESYLATE 5 MG TABLET PO SCH (10:42)
[2019-05-25] MEDS: GLIPIZIDE 10 MG TABLET PO SCH (10:42)
[2019-05-25] MEDS: INSULIN GLARGINE,HUM.REC.ANLOG 1,000 UNIT/10 ML VIAL SUBCUT SCH ×2 (10:48→17:31)
[2019-05-25] MEDS: METFORMIN HCL 850 MG TABLET PO SCH ×2 (10:48→17:31)
--- NOTE | 2019-05-25 19:24 | PDOC PROGRESS REPORT ---
Subjective Progress Note for:: 05/25/19 Subjective:: Patient denied chest pain or difficulty with breathing. No abdominal pain, nausea or vomiting. No reported fever or chills. Out of bed in chair. Efforts at SNF rehabilitation placement was discussed with rn social services/strategic planner early today. From my discussion with the patient, she is willing to go to local SNF in [place] for rehabilitation. She left the choice to the strategic planner. Reason For Visit: RIGHT LOWER EXTREMITY ARTERIAL INSUFFICENCY Physical Exam Vital Signs: Temp Pulse Resp BP Pulse Ox 98.1 F 85 16 157/76 H 99 05/25/19 16:09 05/25/19 16:09 05/25/19 16:09 05/25/19 12:26 05/25/19 16:09 Intake & Output 05/24/19 05/25/19 05/26/19 06:59 06:59 06:59 Intake Total 727 601 720 Balance 727 601 720 Weight 55.3 kg 53.6 kg Physical Exam: General appearance: PRESENT: no acute distress Head exam: PRESENT: atraumatic, normocephalic Eye exam: PRESENT: conjunctiva pink. ABSENT: pallor, scleral icterus Ear exam: PRESENT: normal external ear exam Mouth exam: PRESENT: moist Respiratory exam: PRESENT: clear to auscultation tom Cardiovascular exam: PRESENT: RRR. ABSENT: diastolic murmur, rubs, systolic murmur GI/Abdominal exam: PRESENT: normal bowel sounds, soft. ABSENT: distended, guarding, mass, organomegaly, rebound, tenderness Extremities exam: PRESENT: right BKA. ABSENT: pedal edema Neurological exam: PRESENT: alert, awake, oriented to person, oriented to place, oriented to time, oriented to situation, CN II-XII grossly intact. ABSENT: motor sensory deficit Psychiatric exam: PRESENT: appropriate affect, normal mood. ABSENT: homicidal ideation, suicidal ideation Skin exam: PRESENT: dry, warm, other - satisfactory dressing to right BKA surgical site. Results Laboratory Results: 05/24/19 05:17 05/24/19 05:17 05/24/19 19:15 Magnesium 1.8 05/19/19 21:29 Blood Blood Culture - Final NO GROWTH IN 5 DAYS 05/19/19 20:08 Blood Blood Culture - Final NO GROWTH IN 5 DAYS 05/18/19 05/18/1905/18/19 12:10 12:10 13:23 Creatine Kinase Cancelled 348 H Troponin I Cancelled 05/18/19 13:23 Creatine Kinase Troponin I 0.054 Assessment & Plan - Diagnosis (1) PAD (peripheral artery disease) Is this a current diagnosis for this admission?: Yes (2) Ischemic necrosis of foot Is this a current diagnosis for this admission?: Yes (3) Wound of foot Is this a current diagnosis for this admission?: Yes (4) Diabetes mellitus, type II Qualifiers: Diabetes mellitus 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 transplanted heart: [place] heart Associated angina: without angina Qualified Code(s): I25.10 - Atherosclerotic heart disease of [place] coronary artery with out angina pectoris Is this a current diagnosis for this admission?: Yes (6) Hyperlipidemia Qualifiers: Hyperlipidemia type: unspecified Qualified Code(s): E78.5 - Hyperlipidemia, unspecified Is this a current diagnosis for this admission?: Yes - Time Time Spent with patient: 25-34 minutes Medications reviewed and adjusted accordingly: Yes Anticipated discharge: SNF - Patient is willing to go to any local SNF for shirt term rehabilitation. Within: Other - Inpatient Certification Medical Necessity: Significant Comorbidiites Make Outpatient Treatment Too Risky, Need Close Monitoring Due to Risk of Patient Decompensation, Need For Continuous Telemetry Monitoring, Risk of Complication if Not Cared For in Hospi [place], Risk of Diagnosis Which Will Require Inpatient Eval/Care/Monitoring Post Hospital Care: D/C or Transfer Summary - Plan Summary Plan Summary: Continue local wound dressing as per surgical team recommendation. Increase Lisinopril to 30 mg po daily. Increase Metformin to 1000 mg po bid. Continue all other current medication management. Follow up on disposition efforts. I was unable to talk to her brother, Caleb, at [phone] today. Also, I couldn't leave a message.
[2019-05-25] MEDS: DOCUSATE SODIUM 100 MG CAPSULE PO SCH (21:50)
[2019-05-25] MEDS: ATORVASTATIN CALCIUM 40 MG TABLET PO SCH (21:51)
[2019-05-25] MEDS: SENNOSIDES/DOCUSATE 8.6-50 MG 1 EACH TABLET PO SCH (21:51)
[2019-05-26] MEDS: OXYCODONE-ACETAMINOPHEN 5-325 MG TABLET PO PRN ×3 (05:15→22:05)
[2019-05-26] MEDS: PANTOPRAZOLE SODIUM 40 MG TABLET.DR PO SCH (05:15)
[2019-05-26] MEDS: INSULIN LISPRO 100 UNIT/ML 3 ML VIAL SUBCUT SCH ×4 (08:00→22:06)
[2019-05-26] MEDS: GLIPIZIDE 10 MG TABLET PO SCH (09:24)
[2019-05-26] MEDS: LISINOPRIL 10 MG TABLET PO SCH (09:24)
[2019-05-26] MEDS: PREGABALIN 75 MG CAPSULE PO SCH ×2 (09:24→22:06)
[2019-05-26] MEDS: ASPIRIN 81 MG TABLET, ENT COATED PO SCH (09:24)
[2019-05-26] MEDS: AMLODIPINE BESYLATE 5 MG TABLET PO SCH (09:24)
[2019-05-26] MEDS: METFORMIN HCL 500 MG TABLET PO SCH ×2 (09:25→18:15)
[2019-05-26] MEDS: ENOXAPARIN SODIUM INJ 40 MG/0.4 ML DISP.SYRIN SUBCUT SCH (09:25)
[2019-05-26] MEDS: INSULIN GLARGINE,HUM.REC.ANLOG 1,000 UNIT/10 ML VIAL SUBCUT SCH (10:09)
--- NOTE | 2019-05-26 15:12 | PDOC PROGRESS REPORT ---
Subjective Progress Note for:: 05/26/19 Subjective:: Patient denied chest pain or difficulty with breathing. There was episode of hypoglycemia this morning necessitating hold on her scheduled Lantus Insulin administration. No abdominal pain, nausea or vomiting. No reported fever or chills. Reason For Visit: RIGHT LOWER EXTREMITY ARTERIAL INSUFFICENCY Physical Exam Vital Signs: Temp Pulse Resp BP Pulse Ox 98.8 F 81 18 132/43 H 98 05/26/19 07:45 05/26/19 07:45 05/26/19 07:45 05/26/19 07:45 05/26/19 07:45 Intake & Output 05/25/19 05/26/19 05/27/19 06:59 06:59 06:59 Intake Total 601 960 Balance 601 960 Weight 53.6 kg 53.5 kg Physical Exam: General appearance: PRESENT: no acute distress Head exam: PRESENT: atraumatic, normocephalic Eye exam: PRESENT: conjunctiva pink. ABSENT: pallor, scleral icterus Ear exam: PRESENT: normal external ear exam Mouth exam: PRESENT: moist Respiratory exam: PRESENT: clear to auscultation tom Cardiovascular exam: PRESENT: RRR. ABSENT: diastolic murmur, rubs, systolic murmur GI/Abdominal exam: PRESENT: normal bowel sounds, soft. ABSENT: distended, guarding, mass, organomegaly, rebound, tenderness Extremities exam: PRESENT: right BKA. ABSENT: pedal edema Neurological exam: PRESENT: alert, awake, oriented to person, oriented to place, oriented to time, oriented to situation, CN II-XII grossly intact. ABSENT: mo tor sensory deficit Psychiatric exam: PRESENT: appropriate affect, normal mood. ABSENT: homicidal i deation, suicidal ideation Skin exam: PRESENT: dry, warm, other - satisfactory dressing to right BKA surgical site. 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 transplanted heart: [place] heart Associated angina: without angina Qualified Code(s): I25.10 - Atherosclerotic heart disease of [place] coronary artery without angina pectoris Is this a current diagnosis for this admission?: Yes (6) Hyperlipidemia Qualifiers: Hyperlipidemia type: unspecified Qualified Code(s): E78.5 - Hyperlipidemia, unspecified Is this a current diagnosis for this admission?: Yes - Time Time Spent with patient: 25-34 minutes Medications reviewed and adjusted accordingly: Yes Anticipated discharge: SNF Within: Other - Inpatient Certification Based on my medical assessment, after consideration of the patient's comorbidities, presenting symptoms, or acuity I expect that the services needed warrant INPATIENT care.: Yes I certify that my determination is in accordance with my understanding of Medicare's requirements for reasonable and necessary INPATIENT services [42 CFR 412.3e].: Yes Medical Necessity: Significant Comorbidiites Make Outpatient Treatment Too Risky, Need Close Monitoring Due to Risk of Patient Decompensation, Need For Continuous Telemetry Monitoring, Risk of Complication if Not Cared For in Hospital, Risk of Diagnosis Which Will Require Inpatient Eval/Care/Monitoring Post Hospital Care: D/C or Transfer Summary - Plan Summary Plan Summary: Monitor glycemic control. Follow up on disposition efforts. I spoke with patient and brother last night. They are willing to proceed with SNF placement for short term rehabilitation at [facility]. Follow up with surgical team regard status of her right BKA wound.
[2019-05-26] MEDS: SENNOSIDES/DOCUSATE 8.6-50 MG 1 EACH TABLET PO SCH (22:05)
[2019-05-26] MEDS: ATORVASTATIN CALCIUM 40 MG TABLET PO SCH (22:06)
[2019-05-26] MEDS: DOCUSATE SODIUM 100 MG CAPSULE PO SCH (22:06)
[2019-05-27] MEDS: PANTOPRAZOLE SODIUM 40 MG TABLET.DR PO SCH (05:14)
[2019-05-27] MEDS: OXYCODONE-ACETAMINOPHEN 5-325 MG TABLET PO PRN ×4 (05:14→22:53)
[2019-05-27 06:38] LABS: ANION GAP 9 (5-19); BLOOD UREA NITROGEN 15 mg/dL (7-20); CARBON DIOXIDE 31 mmol/L (22-30); CHLORIDE 98 mmol/L (98-107); GLUCOSE 119 mg/dL (75-110); POTASSIUM 4.6 mmol/L (3.6-5.0)
[2019-05-27] MEDS: INSULIN LISPRO 100 UNIT/ML 3 ML VIAL SUBCUT SCH ×4 (09:13→22:53)
[2019-05-27] MEDS: LISINOPRIL 10 MG TABLET PO SCH (09:14)
[2019-05-27] MEDS: AMLODIPINE BESYLATE 5 MG TABLET PO SCH (09:14)
[2019-05-27] MEDS: ASPIRIN 81 MG TABLET, ENT COATED PO SCH (09:14)
[2019-05-27] MEDS: ENOXAPARIN SODIUM INJ 40 MG/0.4 ML DISP.SYRIN SUBCUT SCH (09:14)
[2019-05-27] MEDS: PREGABALIN 75 MG CAPSULE PO SCH ×2 (09:14→22:53)
--- NOTE | 2019-05-27 10:10 | PDOC PROGRESS REPORT ---
Subjective Progress Note for:: 05/27/19 Subjective:: Patient Currently doing fair Hypoglycemia is getting better currently hold all insulin According to the nursing staff no other events Reason For Visit: RIGHT LOWER EXTREMITY ARTERIAL INSUFFICENCY Physical Exam Vital Signs: Temp Pulse Resp BP Pulse Ox 98.5 F 82 18 129/51 H 98 05/26/19 16:09 05/27/19 07:00 05/26/19 16:09 05/26/19 16:09 05/26/19 16:09 Intake & Output 05/26/19 05/27/19 05/28/19 06:59 06:59 06:59 Intake Total 960 840 Output Total 675 Balance 960 165 Weight 53.5 kg 53.7 kg General appearance: PRESENT: no acute distress, well-developed, well-nourished Head exam: PRESENT: atraumatic, normocephalic Eye exam: PRESENT: conjunctiva pink, EOMI, PERRLA. ABSENT: scleral icterus Ear exam: PRESENT: normal external ear exam Mouth exam: PRESENT: moist, tongue midline Neck exam: PRESENT: full ROM. ABSENT: carotid bruit, JVD, lymphadenopathy, thyromegaly Respiratory exam: PRESENT: clear to auscultation tom Cardiovascular exam: PRESENT: RRR. ABSENT: diastolic murmur, rubs, systolic murmur Vascular exam: PRESENT: normal capillary refill GI/Abdominal exam: PRESENT: normal bowel sounds, soft. ABSENT: distended, guarding, mass, organolmegaly, rebound, tenderness Rectal exam: PRESENT: deferred Neurological exam: PRESENT: alert, awake. ABSENT: motor sensory deficit Psychiatric exam: PRESENT: appropriate affect, normal mood. ABSENT: homicidal ideation, suicidal ideation Skin exam: PRESENT: dry, intact, warm. 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: 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 vermin exterminator insulin use status Diabetes mellitus complication status: with other specified complication Qualified Code(s): E11.69 - Type 2 diabetes mellitus with other specified complication Is this a current diagnosis for this admission?: Yes (3) Ischemic necrosis of foot Is this a current diagnosis for this admission?: Yes (4) PAD (peripheral artery disease) Is this a current diagnosis for this admission?: Yes (5) Surgical wound, non healing Qualifiers: Encounter type: initial encounter Qualified Code(s): T81.89XA - Other complications of procedures, not elsewhere classified, initial encounter Is this a current diagnosis for this admission?: Yes - Time Time Spent with patient: 15-24 minutes Medications reviewed and adjusted accordingly: Yes Anticipated discharge: SNF - Plan Summary Plan Summary: Continues to hold the oral insulin n.p.o. glipizide's Continues to current medications
[2019-05-27] MEDS: SENNOSIDES/DOCUSATE 8.6-50 MG 1 EACH TABLET PO SCH (22:53)
[2019-05-27] MEDS: ATORVASTATIN CALCIUM 40 MG TABLET PO SCH (22:53)
[2019-05-27] MEDS: DOCUSATE SODIUM 100 MG CAPSULE PO SCH (22:53)
[2019-05-28 05:35] LABS: ABSOLUTE LYMPHOCYTES (AUTO) 2.3 10^3/uL (0.5-4.7); ABSOLUTE MONOCYTES (AUTO) 0.6 10^3/uL (0.1-1.4); ABSOLUTE NEUT (AUTO) 2.9 10^3/uL (1.7-8.2); BASOPHILS % (AUTO) 0.5 % (0-2); HEMATOCRIT 31.8 % (36.0-47.0); HEMOGLOBIN 10.8 g/dL (12.0-15.5); LYMPHOCYTES % (AUTO) 39.9 % (13-45); MEAN CORPUSCULAR HEMOGLOBIN 27.7 pg (27.0-33.4); MEAN CORPUSCULAR HGB CONC 33.9 g/dL (32.0-36.0); MEAN CORPUSCULAR VOLUME 82 fl (80-97); PLATELET COUNT 524 10^3/uL (150-450); RED BLOOD COUNT 3.89 10^6/uL (3.72-5.28); RED CELL DISTRIBUTION WIDTH 13.7 % (11.5-14.0); SEGMENTED NEUTROPHILS % (AUTO) 49.6 % (42-78); TOTAL CELLS COUNTED % (AUTO) 100 %; WHITE BLOOD COUNT 5.9 10^3/uL (4.0-10.5)
[2019-05-28] MEDS: PANTOPRAZOLE SODIUM 40 MG TABLET.DR PO SCH (05:53)
[2019-05-28] MEDS: OXYCODONE-ACETAMINOPHEN 5-325 MG TABLET PO PRN ×3 (05:53→18:18)
[2019-05-28 05:56] LABS: ANION GAP 9 (5-19); BLOOD UREA NITROGEN 14 mg/dL (7-20); CALCIUM 9.9 mg/dL (8.4-10.2); CARBON DIOXIDE 32 mmol/L (22-30); CHLORIDE 98 mmol/L (98-107); GLUCOSE 136 mg/dL (75-110); POTASSIUM 4.8 mmol/L (3.6-5.0)
[2019-05-28] MEDS: ENOXAPARIN SODIUM INJ 40 MG/0.4 ML DISP.SYRIN SUBCUT SCH (09:08)
[2019-05-28] MEDS: INSULIN LISPRO 100 UNIT/ML 3 ML VIAL SUBCUT SCH ×4 (09:08→21:58)
[2019-05-28] MEDS: ASPIRIN 81 MG TABLET, ENT COATED PO SCH (09:08)
[2019-05-28] MEDS: LISINOPRIL 10 MG TABLET PO SCH (09:09)
[2019-05-28] MEDS: AMLODIPINE BESYLATE 5 MG TABLET PO SCH (09:09)
[2019-05-28] MEDS: PREGABALIN 75 MG CAPSULE PO SCH ×2 (09:09→22:00)
--- NOTE | 2019-05-28 11:18 | PDOC PROGRESS REPORT ---
Subjective Progress Note for:: 05/28/19 Subjective:: Patient Currently doing fair Hypoglycemia is getting better currently hold all insulin According to the nursing staff no other events Reason For Visit: RIGHT LOWER EXTREMITY ARTERIAL INSUFFICENCY Physical Exam Vital Signs: Temp Pulse Resp BP Pulse Ox 98.1 F 98 18 113/53 L 99 05/28/19 08:04 05/28/19 08:04 05/28/19 08:04 05/28/19 08:04 05/28/19 08:04 Intake & Output 05/27/19 05/28/19 05/29/19 06:59 06:59 06:59 Intake Total 840 940 Output Total 675 Balance 165 940 Weight 53.7 kg 53.9 kg General appearance: PRESENT: no acute distress, well-developed, well-nourished Head exam: PRESENT: atraumatic, normocephalic Eye exam: PRESENT: conjunctiva pink, EOMI, PERRLA. ABSENT: scleral icterus Ear exam: PRESENT: normal external ear exam Mouth exam: PRESENT: moist, tongue midline Neck exam: PRESENT: full ROM. ABSENT: carotid bruit, JVD, lymphadenopathy, thyromegaly Respiratory exam: PRESENT: clear to auscultation tom Cardiovascular exam: PRESENT: RRR. ABSENT: diastolic murmur, rubs, systolic murmur Pulses: PRESENT: normal dorsalis pedis pul, +2 pedal pulses bilateral Vascular exam: PRESENT: normal capillary refill GI/Abdominal exam: PRESENT: normal bowel sounds, soft. ABSENT: distended, guarding, mass, organolmegaly, rebound, tenderness Rectal exam: PRESENT: deferred Extremities exam: PRESENT: right BKA Neurological exam: PRESENT: alert, awake, oriented to person, oriented to place. ABSENT: motor sensory deficit Psychiatric exam: PRESENT: appropriate affect, normal mood. ABSENT: homicidal ideation, suicidal ideation Skin exam: PRESENT: dry, intact, warm. ABSENT: cyanosis, rash Results Laboratory Results: 05/28/19 05:05 05/28/19 05:05 05/28/19 05/28/19 05:05 05:05 WBC 5.9 RBC 3.89 Hgb 10.8 L Hct 31.8 L MCV 82 MCH 27.7 MCHC 33.9 RDW 13.7 Plt Count 524 H Seg Neutrophils % 49.6 Lymphocytes % 39.9 Monocytes % 10.0 Eosinophils % 0.0 Basophils % 0.5 Absolute Neutrophils 2.9 Absolute Lymphocytes 2.3 Absolute Monocytes 0.6 Absolute Eosinophils 0.0 Absolute Basophils 0.0 Sodium 139.0 Potassium 4.8 Chloride 98 Carbon Dioxide 32 H Anion Gap 9 BUN 14 Creatinine 0.59 Est GFR ( Amer) > 60 Est GFR (Non-Af Amer) > 60 Glucose 136 H Calcium 9.9 05/18/19 05/18/19 05/18/19 12:10 12:10 13:23 Creatine Kinase Cancelled 348 H Troponin I Cancelled 05/18/19 13:23 Creatine Kinase Troponin I 0.054 Assessment & Plan - Diagnosis (1) Hypoglycemia Is this a current diagnosis for this admission?: Yes (2) Diabetes mellitus, type II Qualifiers: Diabetes mellitus detention insulin use: unspecified intermediate manager insulin use status Diabetes mellitus complication status: with other specified complication Qualified Code(s): E11.69 - Type 2 diabetes mellitus with other specified complication Is this a current diagnosis for this admission?: Yes (3) Ischemic necrosis of foot Is this a current diagnosis for this admission?: Yes (4) PAD (peripheral artery disease) Is this a current diagnosis for this admission?: Yes (5) Surgical wound, non healing Qualifiers: Encounter type: initial encounter Qualified Code(s): T81.89XA - Other complications of procedures, not elsewhere classified, initial encounter Is this a current diagnosis for this admission?: Yes - Time Time Spent with patient: 15-24 minutes Medications reviewed and adjusted accordingly: Yes Anticipated discharge: SNF Within: Other - Plan Summary Plan Summary: Continues to current medications
[2019-05-28] MEDS ORDERED: INSULIN GLARGINE,HUM.REC.ANLOG 1,000 UNIT/10 ML VIAL (PYX) SUBCUT ONE (21:56)
[2019-05-28] MEDS: ATORVASTATIN CALCIUM 40 MG TABLET PO SCH (21:59)
[2019-05-28] MEDS: SENNOSIDES/DOCUSATE 8.6-50 MG 1 EACH TABLET PO SCH (22:00)
[2019-05-28] MEDS: DOCUSATE SODIUM 100 MG CAPSULE PO SCH (22:01)
[2019-05-28] MEDS ORDERED: INSULIN GLARGINE,HUM.REC.ANLOG 1,000 UNIT/10 ML VIAL (PYX) SUBCUT PRN (23:55)
[2019-05-28] MEDS ORDERED: INSULIN GLARGINE,HUM.REC.ANLOG 1,000 UNIT/10 ML VIAL SUBCUT ONE (23:59)
[2019-05-28] MEDS ORDERED: INSULIN LISPRO 100 UNIT/ML 3 ML VIAL SUBCUT ONE (23:59)
[2019-05-29] MEDS: OXYCODONE-ACETAMINOPHEN 5-325 MG TABLET PO PRN ×6 (00:08→22:11)
[2019-05-29] MEDS: PANTOPRAZOLE SODIUM 40 MG TABLET.DR PO SCH (05:26)
[2019-05-29 07:00] LABS: ANION GAP 8 (5-19); BLOOD UREA NITROGEN 17 mg/dL (7-20); CALCIUM 9.9 mg/dL (8.4-10.2); CARBON DIOXIDE 34 mmol/L (22-30); CHLORIDE 97 mmol/L (98-107); GLUCOSE 93 mg/dL (75-110); POTASSIUM 4.7 mmol/L (3.6-5.0)
[2019-05-29] MEDS: INSULIN LISPRO 100 UNIT/ML 3 ML VIAL SUBCUT SCH ×4 (07:50→22:14)
[2019-05-29] MEDS: ASPIRIN 81 MG TABLET, ENT COATED PO SCH (09:23)
[2019-05-29] MEDS: PREGABALIN 75 MG CAPSULE PO SCH ×2 (09:23→22:12)
[2019-05-29] MEDS: ENOXAPARIN SODIUM INJ 40 MG/0.4 ML DISP.SYRIN SUBCUT SCH (09:23)
[2019-05-29] MEDS: AMLODIPINE BESYLATE 5 MG TABLET PO SCH (09:23)
[2019-05-29] MEDS: LISINOPRIL 10 MG TABLET PO SCH (09:23)
--- NOTE | 2019-05-29 11:41 | PDOC PROGRESS REPORT ---
Subjective Progress Note for:: 05/29/19 Subjective:: her blood sugar is going up now received the 20 units of Lantus last night's sugar is 151 this morning Patient's denied any chest pain to than any shortness of breath Reason For Visit: RIGHT LOWER EXTREMITY ARTERIAL INSUFFICENCY Physical Exam Vital Signs: Temp Pulse Resp BP Pulse Ox 98.7 F 91 16 139/52 H 95 05/29/19 07:36 05/29/19 07:36 05/29/19 07:36 05/29/19 07:36 05/29/19 07:36 Intake & Output 05/28/19 05/29/19 05/30/19 06:59 06:59 06:59 Intake Total 940 835 Output Total 200 Balance 940 635 Weight 53.9 kg 55.7 kg General appearance: PRESENT: no acute distress, well-developed, well-nourished Head exam: PRESENT: atraumatic, normocephalic Eye exam: PRESENT: conjunctiva pink, EOMI, PERRLA. ABSENT: scleral icterus Ear exam: PRESENT: normal external ear exam Mouth exam: PRESENT: moist, tongue midline Neck exam: PRESENT: full ROM. ABSENT: carotid bruit, JVD, lymphadenopathy, thyromegaly Respiratory exam: PRESENT: clear to auscultation tom Cardiovascular exam: PRESENT: RRR. ABSENT: diastolic murmur, rubs, systolic murmur Pulses: PRESENT: normal dorsalis pedis pul, +2 pedal pulses bilateral Vascular exam: PRESENT: normal capillary refill GI/Abdominal exam: PRESENT: normal bowel sounds, soft. ABSENT: distended, guarding, mass, organolmegaly, rebound, tenderness Rectal exam: PRESENT: deferred Extremities exam: PRESENT: right BKA Neurological exam: PRESENT: alert, awake, oriented to person, oriented to place, oriented to time, oriented to situation, CN II-XII grossly intact. ABSENT: motor sensory deficit Psychiatric exam: PRESENT: appropriate affect, normal mood. ABSENT: homicidal ideation, suicidal ideation Skin exam: PRESENT: dry, intact, warm. ABSENT: cyanosis, rash Results Laboratory Results: 05/28/19 05:05 05/29/19 05:28 05/29/19 05:28 Sodium 139.4 Potassium 4.7 Chloride 97 L Carbon Dioxide 34 H Anion Gap 8 BUN 17 Creatinine 0.58 Est GFR ( Amer) > 60 Est GFR (Non-Af Amer) > 60 Glucose 93 Calcium 9.9 05/18/19 05/18/19 05/18/19 12:10 12:10 13:23 Creatine Kinase Cancelled 348 H Troponin I Cancelled 05/18/19 13:23 Creatine Kinase Troponin I 0.054 Assessment & Plan - Diagnosis (1) Hypoglycemia Is this a current diagnosis for this admission?: Yes Plan: Purvis all resolved (2) Diabetes mellitus, type II Qualifiers: Diabetes mellitus chcf insulin use: unspecified chcf insulin use status Diabetes mellitus complication status: with other specified complication Qualified Code(s): E11.69 - Type 2 diabetes mellitus with other specified complication Is this a current diagnosis for this admission?: Yes Plan: Insulin sliding scale and start the patient on Lantus 15 units nightly (3) Ischemic necrosis of foot Is this a current diagnosis for this admission?: Yes (4) PAD (peripheral artery disease) Is this a current diagnosis for this admission?: Yes (5) Surgical wound, non healing Qualifiers: Encounter type: initial encounter Qualified Code(s): T81.89XA - Other complications of procedures, not elsewhere classified, initial encounter Is this a current diagnosis for this admission?: Yes - Time Time Spent with patient: 15-24 minutes Medications reviewed and adjusted accordingly: Yes Anticipated discharge: SNF Within: Other - Plan Summary Plan Summary: Continues to insulin sliding scale and Lantus 15 units nightly
[2019-05-29] MEDS ORDERED: OXYCODONE-ACETAMINOPHEN 5-325 MG TABLET PO ONE (14:45)
[2019-05-29] MEDS ORDERED: INSULIN GLARGINE,HUM.REC.ANLOG 1,000 UNIT/10 ML VIAL SUBCUT SCH ×2 (22:00)
[2019-05-29] MEDS: DOCUSATE SODIUM 100 MG CAPSULE PO SCH (22:12)
[2019-05-29] MEDS: ATORVASTATIN CALCIUM 40 MG TABLET PO SCH (22:13)
[2019-05-29] MEDS: SENNOSIDES/DOCUSATE 8.6-50 MG 1 EACH TABLET PO SCH (22:13)
[2019-05-30] MEDS: OXYCODONE-ACETAMINOPHEN 5-325 MG TABLET PO PRN ×4 (03:52→21:31)
[2019-05-30] MEDS: PANTOPRAZOLE SODIUM 40 MG TABLET.DR PO SCH (05:54)
[2019-05-30] MEDS: INSULIN LISPRO 100 UNIT/ML 3 ML VIAL SUBCUT SCH ×4 (08:57→21:32)
[2019-05-30] MEDS: LISINOPRIL 10 MG TABLET PO SCH (10:05)
[2019-05-30] MEDS: AMLODIPINE BESYLATE 5 MG TABLET PO SCH (10:05)
[2019-05-30] MEDS: PREGABALIN 75 MG CAPSULE PO SCH ×2 (10:07→21:31)
[2019-05-30] MEDS: ENOXAPARIN SODIUM INJ 40 MG/0.4 ML DISP.SYRIN SUBCUT SCH (10:07)
[2019-05-30] MEDS: ASPIRIN 81 MG TABLET, ENT COATED PO SCH (10:07)
--- NOTE | 2019-05-30 19:25 | PDOC PROGRESS REPORT ---
Subjective Progress Note for:: 05/30/19 Subjective:: Patient denied chest pain or difficulty with breathing. No abdominal pain, nausea or vomiting. No reported fever or chills. She reported some increase pain at surgical site over the weekend. Reason For Visit: RIGHT LOWER EXTREMITY ARTERIAL INSUFFICENCY Physical Exam Vital Signs: Temp Pulse Resp BP Pulse Ox 98.8 F 95 14 159/53 H 98 05/30/19 07:45 05/30/19 07:45 05/30/19 07:45 05/30/19 07:45 05/30/19 07:45 Intake & Output 05/29/19 05/30/19 05/31/19 06:59 06:59 06:59 Intake Total 835 240 Output Total 200 500 Balance 635 -260 Weight 55.7 kg 54.5 kg Physical Exam: General appearance: PRESENT: no acute distress Head exam: PRESENT: atraumatic, normocephalic Eye exam: PRESENT: conjunctiva pink. ABSENT: pallor, scleral icterus Ear exam: PRESENT: normal external ear exam Mouth exam: PRESENT: moist Respiratory exam: PRESENT: clear to auscultation tom Cardiovascular exam: PRESENT: RRR. ABSENT: diastolic murmur, rubs, systolic murmur GI/Abdominal exam: PRESENT: normal bowel sounds, soft. ABSENT: distended, guarding, mass, organomegaly, rebound, tenderness Extremities exam: PRESENT: right BKA. ABSENT: pedal edema Neurological exam: PRESENT: alert, awake, oriented to person, oriented to place, oriented to time, oriented to situation, CN II-XII grossly intact. ABSENT: motor sensory deficit Psychiatric exam: PRESENT: appropriate affect, normal mood. ABSENT: homicidal ideation, suicidal ideation Skin exam: PRESENT: dry, warm, other - satisfactory dressing to right BKA surgical site. 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 transplanted heart: [place] heart Associated angina: without angina Qualified Code(s): I25.10 - Atherosclerotic heart disease of [place] coronary artery without angina pectoris Is this a current diagnosis for this admission?: Yes (6) Hyperlipidemia Qualifiers: Hyperlipidemia type: unspecified Qualified Code(s): E78.5 - Hyperlipidemia, unspecified Is this a current diagnosis for this admission?: Yes - Time Time Spent with patient: 25-34 minutes Medications reviewed and adjusted accordingly: Yes Anticipated discharge: SNF Within: Other - Inpatient Certification Based on my medical assessment, after consideration of the patient's co morbidities, presenting symptoms, or acuity I expect that the services needed warrant INPATIENT care.: Yes I certify that my determination is in accordance with my understanding of Medicare's requirements for reasonable and necessary INPATIENT services [42 CFR 412.3e].: Yes Medical Necessity: Significant Comorbidiites Make Outpatient Treatment Too Risky, Need Close Monitoring Due to Risk of Patient Decompensation, Need for Pain Control, Risk of Complication if Not Cared For in Hospital, Risk of Diagnosis Which Will Require Inpatient Eval/Care/Monitoring Post Hospital Care: D/C or Transfer Summary - Plan Summary Plan Summary: Continue current medication management. Follow up on disposition plan regarding SNF placement. Obtain CBC with diff and bmp.
[2019-05-30] MEDS ORDERED: INSULIN GLARGINE,HUM.REC.ANLOG 1,000 UNIT/10 ML VIAL (PYX) SUBCUT ONE (21:29)
[2019-05-30] MEDS: SENNOSIDES/DOCUSATE 8.6-50 MG 1 EACH TABLET PO SCH (21:31)
[2019-05-30] MEDS: DOCUSATE SODIUM 100 MG CAPSULE PO SCH (21:31)
[2019-05-30] MEDS: ATORVASTATIN CALCIUM 40 MG TABLET PO SCH (21:31)
[2019-05-30 21:56] LABS: ABSOLUTE BASOPHILS # (AUTO) 0.1 10^3/uL (0.0-0.2); ABSOLUTE LYMPHOCYTES (AUTO) 2.2 10^3/uL (0.5-4.7); ABSOLUTE NEUT (AUTO) 5.4 10^3/uL (1.7-8.2); BASOPHILS % (AUTO) 0.8 % (0-2); HEMATOCRIT 31.3 % (36.0-47.0); HEMOGLOBIN 10.3 g/dL (12.0-15.5); MEAN CORPUSCULAR HEMOGLOBIN 27.3 pg (27.0-33.4); MEAN CORPUSCULAR HGB CONC 32.9 g/dL (32.0-36.0); MEAN CORPUSCULAR VOLUME 83 fl (80-97); MONOCYTES % (AUTO) 11.7 % (3-13); PLATELET COUNT 514 10^3/uL (150-450); RED BLOOD COUNT 3.78 10^6/uL (3.72-5.28); RED CELL DISTRIBUTION WIDTH 13.8 % (11.5-14.0); SEGMENTED NEUTROPHILS % (AUTO) 62.5 % (42-78); TOTAL CELLS COUNTED % (AUTO) 100 %; WHITE BLOOD COUNT 8.7 10^3/uL (4.0-10.5)
[2019-05-30] MEDS ORDERED: INSULIN GLARGINE,HUM.REC.ANLOG 1,000 UNIT/10 ML VIAL SUBCUT SCH (22:00)
[2019-05-30 22:23] LABS: ANION GAP 8 (5-19); BLOOD UREA NITROGEN 21 mg/dL (7-20); CALCIUM 9.7 mg/dL (8.4-10.2); CARBON DIOXIDE 29 mmol/L (22-30); CHLORIDE 97 mmol/L (98-107); GLUCOSE 350 mg/dL (75-110); POTASSIUM 5.3 mmol/L (3.6-5.0)
[2019-05-31] MEDS: OXYCODONE-ACETAMINOPHEN 5-325 MG TABLET PO PRN ×3 (02:16→12:54)
[2019-05-31] MEDS: PANTOPRAZOLE SODIUM 40 MG TABLET.DR PO SCH (05:44)
[2019-05-31] MEDS: INSULIN LISPRO 100 UNIT/ML 3 ML VIAL SUBCUT SCH ×2 (08:12→12:55)
[2019-05-31] MEDS: ASPIRIN 81 MG TABLET, ENT COATED PO SCH (09:34)
[2019-05-31] MEDS: LISINOPRIL 10 MG TABLET PO SCH (09:34)
[2019-05-31] MEDS: PREGABALIN 75 MG CAPSULE PO SCH (09:35)
[2019-05-31] MEDS: ENOXAPARIN SODIUM INJ 40 MG/0.4 ML DISP.SYRIN SUBCUT SCH (09:35)
[2019-05-31] MEDS: AMLODIPINE BESYLATE 5 MG TABLET PO SCH (09:35)
[2019-05-31 13:04] VITALS: BP 137/56
--- NOTE | 2019-05-31 13:52 | PDOC TRANSFER SUMMARY ---
General - Admit/Disc Date/PCP Admission Date/Primary Care Provider: 05/18/19 14:21 VANGIE LARS Discharge Date: 05/31/19 - Discharge Diagnosis (1) PAD (peripheral artery disease) Is this a current diagnosis for this admission?: Yes (2) Ischemic necrosis of foot Is this a current diagnosis for this admission?: Yes (3) Wound of foot Is this a current diagnosis for this admission?: Yes (4) Diabetes mellitus, type II Is this a current diagnosis for this admission?: Yes (5) CAD (coronary artery disease) Is this a current diagnosis for this admission?: Yes (6) Hyperlipidemia Is this a current diagnosis for this admission?: Yes - Additional Information Resuscitation Status: Full Code Discharge Diet: Cardiac, Diabetic Discharge Activity: Activity As Tolerated, Slowly Increase Activity, Supervised Activity Prescriptions: Oxycodone HCl/Acetaminophen [Percocet 5-325 mg Tablet] 1 tab PO Q4HP PRN #60 tablet PRN Reason: Home Medications: Apixaban [Eliquis 5 mg Tablet] 5 mg PO Q12 05/18/19 Aspirin [Ecotrin 81 mg EC Tablet] 81 mg PO DAILY 05/18/19 Atorvastatin Calcium [Lipitor 40 mg Tablet] 40 mg PO QHS 05/18/19 Docusate Sodium [Colace 100 mg Capsule] 200 mg PO QHS 05/18/19 Glipizide [Glucotrol 10 mg Tablet] 10 mg PO DAILY 05/18/19 Insulin Aspart [Novolog Insulin (Aspart) 100 unit/mL] 8 units SQ MEALS 05/18/19 Insulin Glargine,Hum.rec.anlog [Lantus Insulin 100 Unit/1 ml 10 ml] 20 units SQ BID 05/18/19 Metformin HCl 850 mg PO BID 05/18/19 Pregabalin [Lyrica] 150 mg PO Q12 05/18/19 Amlodipine Besylate [Norvasc 5 mg Tablet] 5 mg PO DAILY tablet 05/31/19 Lisinopril [Prinivil 10 mg Tablet] 30 mg PO DAILY tablet 05/31/19 Oxycodone HCl/Acetaminophen [Percocet 5-325 mg Tablet] 1 tab PO Q4HP PRN #60 tablet 05/31/19 Sennosides/Docusate 8.6-50 mg [Senna Plus Tablet] 2 each PO QHS tablet 05/31/19 Simethicone [Mylicon 80 mg Chewable Tablet] 120 mg PO QIDP PRN tab.chew 05/31/19 History of Present Illness Admission Date/PCP: 05/18/19 14:21 VANGIEQUAN SOUSA Patient complains of: Right foot pain and coldness History of Present Illness: CHARLEE CHING is a 73 year old female patient recently engaged with my practice who was referred to the ED from [facility] after evaluation revealed worsening vascular integrity of her right lower extremity. She recently had vascular surgery intervention by Dr Mccracken at [facility]. She subsequently developed right foot dorsal wound dehiscent. There has been associated pain and coldness to touch of her right foot. Her evaluation today revealed purplish discoloration and further desquamation of soft tissue of her right foot with absence of dorsalis pedis and posterior tibialis arterial pulsation. There was associated exposure of her right foot extensor tendons. Her initial ED evaluation was significant for leukocytosis with left shift, thrombocytosis, and abnormal urinalysis. Her morbidities include Diabetes Mellitus type 2, PAD, CAD s/p stent angioplasty, HLD, DVT, and Breast cancer s/p right mastectomy. Hospital Course Hospital Course: She was admitted for significant peripheral vascular disease with insufficiency and need for immediate limb salvage surgical intervention. She was seen in consultation by the surgicalist group and had right below knee amputation completed on the night of her admission. Post operatively there was concern for possible infection and she was adequately covered with IV antibiotic. Her blood culture was reported no growth x 5 days. She participated in physical therapy program. She is very agreeable to short term rehabilitation at [facility] with goal to ambulate with walker assistance before discharge home. She will follow up with surgicalist group for her surgical wound management. When wound completely heal and patient is cleared by surgical team we will look into prosthetic fitting for the patient to improve her ambulation and independence. Physical Exam Vital Signs: Temp Pulse Resp BP Pulse Ox 97.8 F 94 16 139/60 H 98 05/31/19 08:08 05/31/19 08:08 05/31/19 08:08 05/31/19 08:08 05/31/19 08:08 Intake & Output 05/30/19 05/31/19 06/01/19 06:59 06:59 06:59 Intake Total 240 840 Output Total 500 Balance -260 840 Weight 54.5 kg 53.9 kg General appearance: PRESENT: no acute distress Head exam: PRESENT: atraumatic, normocephalic Eye exam: PRESENT: conjunctiva pink. ABSENT: pallor, scleral icterus Ear exam: PRESENT: normal external ear exam Mouth exam: PRESENT: moist Respiratory exam: PRESENT: clear to auscultation tom Cardiovascular exam: PRESENT: RRR. ABSENT: diastolic murmur, rubs, systolic murmur GI/Abdominal exam: PRESENT: normal bowel sounds, soft. ABSENT: distended, guarding, mass, organomegaly, rebound, tenderness Extremities exam: PRESENT: right BKA. ABSENT: pedal edema Neurological exam: PRESENT: alert, awake, oriented to person, oriented to place, oriented to time, oriented to situation, CN II-XII grossly intact. ABSENT: motor sensory deficit Psychiatric exam: PRESENT: appropriate affect, normal mood. ABSENT: homicidal ideation, suicidal ideation Skin exam: PRESENT: dry, warm, other - satisfactory dressing to right BKA surgical site. Results Laboratory Results: 05/30/19 21:05 05/30/19 21:05 05/30/19 05/30/19 21:05 21:05 WBC 8.7 RBC 3.78 Hgb 10.3 L Hct 31.3 L MCV 83 MCH 27.3 MCHC 32.9 RDW 13.8 Plt Count 514 H Seg Neutrophils % 62.5 Lymphocytes % 25.0 Monocytes % 11.7 Eosinophils % 0.0 Basophils % 0.8 Absolute Neutrophils 5.4 Absolute Lymphocytes 2.2 Absolute Monocytes 1.0 Absolute Eosinophils 0.0 Absolute Basophils 0.1 Sodium 133.7 L Potassium 5.3 H Chloride 97 L Carbon Dioxide 29 Anion Gap 8 BUN 21 H Creatinine 0.85 Est GFR ( Amer) > 60 Est GFR (Non-Af Amer) > 60 Glucose 350 H Calcium 9.7 05/18/19 05/18/19 05/18/19 12:10 12:10 13:23 Creatine Kinase Cancelled 348 H Troponin I Cancelled 05/18/19 13:23 Creatine Kinase Troponin I 0.054 Transfer Plan - Disposition Transfer Plan: Transfer to [facility] for short term rehabilitation. Follow up in the office upon discharge from the SNF as instructed before discharge. Qualifiers - * PATIENT BEING DISCHARGED WITH ANY OF THE FOLLOWING DIAGNOSIS: No Acute Heart Failure - Is this a Heart Failure Patient?: No Plan Discharge Plan: Transfer to [facility] for [facility] term [facility]. Follow up in the office upon discharge from the SNF as instructed before discharge. Time Spent: Greater than 30 Minutes
== END 2019-05-31 15:40 | DRG 908 ==
LOC: ER 11:07 → EH 14:21 → 3S 22:43
PROVIDERS: ADMIT Internal Medicine Geriatric Medicine; ATTEND Internal Medicine Geriatric Medicine
PROC: 0Y6H0Z2 Detachment at Right Lower Leg, Mid, Open Approach (ICD-10-PCS; principal; 2019-05-18 20:00)
DX: T81.89XA Other complications of procedures, not elsewhere classified, initial encounter (principal); E11.52 Type 2 diabetes mellitus with diabetic peripheral angiopathy with gangrene; I96 Gangrene, not elsewhere classified; I87.2 Venous insufficiency (chronic) (peripheral); E78.5 Hyperlipidemia, unspecified; I25.10 Atherosclerotic heart disease of native coronary artery without angina pectoris; E11.649 Type 2 diabetes mellitus with hypoglycemia without coma; Y83.9 Surgical procedure, unspecified as the cause of abnormal reaction of the patient, or of later complication, without mention of misadventure at the time of the procedure; Z79.899 Other long term (current) drug therapy; Z79.4 Long term (current) use of insulin; Z79.82 Long term (current) use of aspirin; Z95.5 Presence of coronary angioplasty implant and graft; Z86.718 Personal history of other venous thrombosis and embolism; Z85.3 Personal history of malignant neoplasm of breast; Z90.11 Acquired absence of right breast and nipple
CPT/HCPCS: 01482; 36415; 80048; 80053; 80202; 81001; 82550; 82803; 82962; 83605; 83735; 84484; 85025; 87040; 88307; 88311; 93005; 93010; 96374; 96375; 99284; J0330; J1630; J1650; J1815; J2250; J2270; J2405; J2543; J2704; J3010; J3370; J3480; J3490; J7030; J7050; J7060

== ENCOUNTER 2019-06-07 16:43 | Emergency (ER) | payer MEDICARE, OTHER ==
--- NOTE | 2019-06-07 17:54 | RADIOLOGY REPORT (SQ) ---
EXAM DESCRIPTION: CT HEAD WITHOUT COMPLETED DATE/TIME: 06/07/2019 5:45 pm REASON FOR STUDY: fall/blood thinners COMPARISON: None. TECHNIQUE: Axial images acquired through the brain without intravenous contrast. Images reviewed wi th bone, brain and subdural windows. Additional sagittal and coronal reconstructions were generated. Images stored on PACS. All CT scanners at this facility use dose modulation, iterative reconstruction, and/or weight based d osing when appropriate to reduce radiation dose to as low as reasonably achievable (ALARA). [facility]: Dose Right [facility]: CareDose [facility]: Dose Right [facility]: Teradose 4D [facility]: Smart Vivocha RADIATION DOSE: CT Rad equipment meets quality standard of care and radiation dose reduction techniq ues were employed. CTDIvol: 48.6 mGy. DLP: 855 mGy-cm.mGy. LIMITATIONS: None. FINDINGS: VENTRICLES: Prominent. CEREBRUM: No masses. No hemorrhage. No midline shift. Areas of low density in the white matter mos t likely due to chronic micro-vascular ischemic change. No evidence for acute infarction. CEREBELLUM: No masses. No hemorrhage. No alteration of density. No evidence for acute infarction. EXTRAAXIAL SPACES: Age-related involutional change. No fluid collections. No masses. ORBITS AND GLOBE: No intra- or extraconal masses. Normal contour of globe without masses. CALVARIUM: No fracture. PARANASAL SINUSES: No fluid or mucosal thickening. SOFT TISSUES: No mass or hematoma. OTHER: No other significant finding. IMPRESSION: CHRONIC CHANGES OF ATROPHY AND MICROVASCULAR ISCHEMIA. NO ACUTE PROCESS. EVIDENCE OF ACUTE STROKE: NO. TECHNICAL DOCUMENTATION: JOB ID: [id number] Quality ID # [id number]: Final reports with documentation of one or more dose reduction techniques (e.g., Au tomated exposure control, adjustment of the mA and/or kV according to patient size, use of iterative reconstruction technique) 2010 [employer]- All Rights Reserved Reading location - IP/workstation name: [email or web address]
--- NOTE | 2019-06-07 18:24 | ER Document Report ---
ED Fall - General Chief Complaint: Fall Stated Complaint: FELL Time Seen by Provider: 06/07/19 17:06 Primary Care Provider: OANH HERNANDEZ MD [Primary Care Provider] - Follow up as needed Information source: Patient, Relative, Emergency Med Personnel TRAVEL OUTSIDE OF THE [place] IN LAST 30 DAYS: No - HPI Notes: Patient is brought in by EMS secondary to a fall. Apparently at the patient's extended care facility she slipped out of her wheelchair. There is no known injuries. Patient is on a blood thinner. Apparently the emergency medicine personnel were instructed to bring the patient due to protocol because of the fall. Patient has no complaints. Patient does have dementia however, and is a poor historian. There is no pain at this time. There is no known radiation symptoms. The symptoms were apparently brief. Nothing apparently made them better or worse. She is unable to describe any type of pain to me and currently denies pain. - Related data Allergies/Adverse Reactions: No Known Allergies Allergy (Verified 04/07/19 11:30) Past Medical History - General Cannot obtain history due to: Dementia - Social History Smoking Status: Never Smoker Chew tobacco use (# tins/day): No Frequency of alcohol use: None Drug Abuse: None Family History: Reviewed & Not Pertinent Patient has suicidal ideation: No Patient has homicidal ideation: No - Past Medical History Cardiac Medical History: Reports: Hx Coronary Artery Disease, Hx DVT, Hx Peripheral Vascular Disease Denies: Hx Heart Attack, Hx Hypercholesterolemia, Hx Hypertension Pulmonary Medical History: Denies: Hx Asthma Neurological Medical History: Denies: Hx Cerebrovascular Accident, Hx Seizures Endocrine Medical History: Reports: Hx Diabetes Mellitus Type 2 Renal/ Medical History: Denies: Hx Peritoneal Dialysis Malignancy Medical History: Reports: Hx Breast Cancer GI Medical History: Denies: Hx Hepatitis, Hx Hiatal Hernia, Hx Ulcer Skin Medical History: Reports Hx Cellulitis Infectious Medical History: Denies: Hx Hepatitis Past Surgical History: Reports: Hx Coronary Stent, Hx Gynecologic Surgery - Unsuccessful fallopian tuboplasty, Hx Mastectomy - RIGHT,RESTRICTED, Hx Vascular Surgery - lower extremities at [facility]. Denies: Hx Hysterectomy, Hx Open Heart Surgery, Hx Pacemaker - Immunizations Hx Diphtheria, Pertussis, Tetanus Vaccination: No Review of Systems - Review of Systems -: Yes ROS unobtainable due to patient's medical condition - Due to patient's dementia review of symptoms is not able to be obtained Physical Exam - Vital signs Vitals: Temp Pulse Resp BP Pulse Ox 97.8 F 89 16 122/58 L 97 06/07/19 16:51 06/07/19 16:51 06/07/19 16:51 06/07/19 16:51 06/07/19 16:51 Interpretation: Normal - General General appearance: Appears well, Alert - HEENT Head: Normocephalic, Atraumatic Eyes: Normal Pupils: PERRL Neck: Normal, Other - C-spine is nontender to palpation - Respiratory Respiratory status: No respiratory distress Chest status: Nontender Breath sounds: Normal Chest palpation: Normal - Cardiovascular Rhythm: Regular Heart sounds: Normal auscultation Murmur: No - Abdominal Inspection: Normal Distension: No distension Bowel sounds: Normal Tenderness: Nontender Organomegaly: No organomegaly - Back Back: Normal, Nontender - Extremities General upper extremity: Normal inspection, Nontender, Normal color, Normal ROM, Normal temperature General lower extremity: Normal inspection, Normal color, Normal temperature, Other - Patient's lower extremity exam is unremarkable other than 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 The wound is slightly dehisced. There is some mild serosanguineous drainage. There is no signs of infection.. No: Meg's sign - Neurological Neuro grossly intact: Yes Cognition: Confused Orientation: Disoriented to place, Disoriented to time [place] Coma Scale Eye Opening: Spontaneous [place] Coma Scale Verbal: Confused [place] Coma Scale Motor: Obeys Commands Maldonado Coma Scale Total: 14 Speech: Normal Motor strength normal: LUE, RUE Sensory: Normal - Psychological Associated symptoms: Normal affect, Normal mood - Skin Skin Temperature: Warm Skin Moisture: Dry Skin Color: Other - Patient has some dehiscence of the wound of her right stump. However there are no signs of infection. Course - Re-evaluation Re-evalutation: 06/07/19 18:[address] shows no signs of intracranial pathology. The right stump does have dehiscence but this is chronic. There are currently no signs of infection. I will redress the wound. I find no other evidence of injury from the fall. I feel the patient can be safely discharged back to the extended care facility. - Vital Signs Vital signs: Temp Pulse Resp BP Pulse Ox 97.8 F 89 16 122/58 L 97 06/07/19 16:51 06/07/19 16:51 06/07/19 16:51 06/07/19 16:51 06/07/19 16:51 - Diagnostic Test Radiology reviewed: Image reviewed, Reports reviewed Radiology results interpreted by me: 06/07/19 18:[address] 06/07/19 17:24 IMPRESSION: CHRONIC CHANGES OF ATROPHY AND MICROVASCULAR ISCHEMIA. NO ACUTE PROCESS. EVIDENCE OF ACUTE STROKE: NO. Discharge - Discharge Clinical Impression: Wound dehiscence Fall Qualifiers: Encounter type: initial encounter Qualified Code(s): W19.XXXA - Unspecified fall, initial encounter Dementia Qualifiers: Dementia type: Alzheimer's disease Alzheimer's disease onset: late-onset Dementia behavioral disturbance: without behavioral disturbance Qualified Code(s): G30.1 - Alzheimer's disease with late onset; F02.80 - Dementia in other diseases classified elsewhere without behavioral disturbance Condition: Stable Disposition: HOME, SELF-CARE Instructions: Dementia (OM) Referrals: OANH HERNANDEZ MD [Primary Care Provider] - Follow up as needed
[2019-06-07 23:19] VITALS: BP 108/48
== END 2019-06-07 23:20 | disposition home or self-care (01) ==
LOC: ER 16:43
DX: T81.30XA Disruption of wound, unspecified, initial encounter (principal); G30.1 Alzheimer's disease with late onset; F02.80 Dementia in other diseases classified elsewhere, unspecified severity, without behavioral disturbance, psychotic disturbance, mood disturbance, and anxiety; W05.0XXA Fall from non-moving wheelchair, initial encounter; I25.10 Atherosclerotic heart disease of native coronary artery without angina pectoris; E11.9 Type 2 diabetes mellitus without complications
CPT/HCPCS: 70450; 99284

== ENCOUNTER 2019-06-21 13:28 | Emergency (ER) | payer MEDICARE, OTHER ==
--- NOTE | 2019-06-21 14:12 | ER Document Report ---
ED Medical Screen (RME) - General Chief Complaint: Post Surgical Pain Stated Complaint: SKIN ISSUE Time Seen by Provider: 06/21/19 14:10 Primary Care Provider: OANH HERNANDEZ MD [Primary Care Provider] - Follow up as needed Mode of Arrival: Medic Information source: Patient Notes: 73-year-old female presented to ED for complaint of complications from surgery last week. She states she is explained to the hospital on Thursday because she was sick and when she woke up from surgery her right leg was cut off below the knee and now her left foot is turning black she is worried she still lose the other foot also. Patient is somewhat oriented confused at times does not know her medical history at this time was brought over from a group home. I have greeted and performed a rapid initial assessment of this patient. A comprehensive ED assessment and evaluation of the patient, analysis of test results and completion of medical decision making process will be conducted by an additional ED providers. TRAVEL OUTSIDE OF THE [place] IN LAST 30 DAYS: No - Related Data Allergies/Adverse Reactions: No Known Allergies Allergy (Verified 04/07/19 11:30) Past Medical History - Social History Frequency of alcohol use: None Drug Abuse: None - Past Medical History Cardiac Medical History: Reports: Hx Coronary Artery Disease, Hx DVT, Hx Heart Attack, Hx Hypertension, Hx Peripheral Vascular Disease Denies: Hx Hypercholesterolemia Pulmonary Medical History: Denies: Hx Asthma Neurological Medical History: Denies: Hx Cerebrovascular Accident, Hx Seizures Endocrine Medical History: Reports: Hx Diabetes Mellitus Type 2 Renal/ Medical History: Denies: Hx Peritoneal Dialysis Malignancy Medical History: Reports: Hx Breast Cancer GI Medical History: Denies: Hx Hepatitis, Hx Hiatal Hernia, Hx Ulcer Skin Medical History: Reports Hx Cellulitis Infectious Medical History: Denies: Hx Hepatitis Past Surgical History: Reports: Hx Breast Surgery, Hx Coronary Stent, Hx Gynecologic Surgery - Unsuccessful fallopian tuboplasty, Hx Mastectomy - RIGHT,RESTRICTED, Hx Orthopedic Surgery - RIGHT bka, Hx Vascular Surgery - lower extremities at [facility]. Denies: Hx Hysterectomy, Hx Open Heart Surgery, Hx Pacemaker - Immunizations Hx Diphtheria, Pertussis, Tetanus Vaccination: No Physical Exam - Vital signs Vitals: Temp Pulse Resp BP Pulse Ox 98.3 F 84 18 119/44 L 100 06/21/19 13:58 06/21/19 13:58 06/21/19 13:58 06/21/19 13:58 06/21/19 13:58 Course - Vital Signs Vital signs: Temp Pulse Resp BP Pulse Ox 98.3 F 84 18 119/44 L 100 06/21/19 13:58 06/21/19 13:58 06/21/19 13:58 06/21/19 13:58 06/21/19 13:58 Doctor's Discharge - Discharge Referrals: OANH HERNANDEZ MD [Primary Care Provider] - Follow up as needed
--- NOTE | 2019-06-21 14:46 | ER Document Report ---
ED Extremity Problem, Lower - General Chief Complaint: Post Surgical Pain Stated Complaint: SKIN ISSUE Time Seen by Provider: 06/21/19 14:10 Primary Care Provider: OANH HERNANDEZ MD [Primary Care Provider] - Follow up as needed Mode of Arrival: Medic Notes: Patient is here to be evaluated for a possible avascular left foot with secondary gangrene. She is a resident of a local halfway, [place]. She had a dressing change of her left foot there today and the staff apparently was concerned about the patient's toes are turning black and she has some black coloration around the heel area as well. She is got several wounds on the top of the foot that have been cleansed and dressed with bandages. Patient had a right BKA amputation couple of months ago. No apparent complaints about that problem. Patient is very seriously demented chronically and is not reliable as far as complaints and answers go. I spoke with Dr. Glaser, the surgeon who did her right BKA amputation and he says that she is to be consulted with the surgeon and admitted for care of that left foot, including likely amputation. TRAVEL OUTSIDE OF THE [place] IN LAST 30 DAYS: No - Related Data Allergies/Adverse Reactions: No Known Allergies Allergy (Verified 06/21/19 14:25) Past Medical History - General Information source: Patient, Relative, Emergency Med Personnel, COUNTS INCLUDE [facility] BEDS AT THE [facility] Records, Outside Facility Records Cannot obtain history due to: Dementia, Uncooperative - Social History Smoking Status: Unknown if Ever Smoked Frequency of alcohol use: None Drug Abuse: None Family History: Reviewed & Not Pertinent Patient has suicidal ideation: No Patient has homicidal ideation: No - Past Medical History Cardiac Medical History: Reports: Hx Coronary Artery Disease, Hx DVT, Hx Heart Attack, Hx Hypertension, Hx Peripheral Vascular Disease Endocrine Medical History: Reports: Hx Diabetes Mellitus Type 2 Malignancy Medical History: Reports: Hx Breast Cancer Skin Medical History: Reports Hx Cellulitis Past Surgical History: Reports: Hx Breast Surgery, Hx Coronary Stent, Hx Gynecologic Surgery - Unsuccessful fallopian tuboplasty, Hx Mastectomy - R IGHT,RESTRICTED, Hx Orthopedic Surgery - RIGHT bka, Hx Vascular Surgery - lower extremities at [facility] - Immunizations Hx Diphtheria, Pertussis, Tetanus Vaccination: No Review of Systems - Review of Systems -: Yes ROS unobtainable due to patient's medical condition - Patient has severe dementia and is unreliable with her answers. Physical Exam - Vital signs Vitals: Temp Pulse Resp BP Pulse Ox 98.3 F 84 18 119/44 L 100 06/21/19 13:58 06/21/19 13:58 06/21/19 13:58 06/21/19 13:58 06/21/19 13:58 Interpretation: Normal Notes: PHYSICAL EXAMINATION: GENERAL: Well-appearing, in no acute distress. Slightly agitated. Confused and unable to answer questions reliably or follow commands. HEAD: Atraumatic, normocephalic. EYES: Pupils equal round and reactive to light, extraocular movements intact. ENT: oropharynx clear without exudates. Moist mucous membranes. NECK: Normal range of motion, supple. LUNGS: Breath sounds clear and equal bilaterally. HEART: Regular rate and rhythm without murmurs. ABDOMEN: Soft, nontender. No guarding or rebound. No masses. BACK: No tenderness throughout entire back. EXTREMITIES: Normal range of motion without pain. Right BKA amputation. Bandage removed and incision visualized and appears to be healing well. There is one small area that denuded posteriorly. The left foot is heavily bandaged with some sort of device. There is a bandage on the foot that has today's date written on it. Patient's left foot shows some wounds on the top of the foot which appear well. However, she has an area on the heel of that foot that is black. Even more so, patient has a black great toe and the second toe and the third toe and then beginning to have the tip of the fourth and fifth toes to turn dark in color. The toes are cold to the touch. I cannot palpate a dorsalis pedis pulse. NEUROLOGICAL: Normal speech, but confused and does not answer appropriately or follow commands. Patient is unable to ambulate. Grossly normal movement of both arms. No facial asymmetry. Patient is not oriented to place or time. PSYCH: Normal mood, normal affect. SKIN: Warm, dry, no rashes. Course - Re-evaluation Re-evalutation: 06/21/19 15:45 Spoke with hospitalist who will evaluate patient and recommend care. 06/21/19 17:04 Patient was evaluated by surgical list and 1 of the hospitalist. They discussed the situation with the patient's family. They do not feel the patient needs to have any inpatient care at this facility and does not benefit by further surgery. Family apparently is in agreement with this plan to provide comfort care in the patient's, return to [facility]. - Vital Signs Vital signs: Temp Pulse Resp BP Pulse Ox 98.2 F 95 12 119/43 L 99 06/21/19 17:38 06/21/19 17:38 06/21/19 17:38 06/21/19 17:38 06/21/19 17:38 - Laboratory Result Diagrams: 06/21/19 14:19 06/21/19 14:19 Laboratory results interpreted by me: 06/21/19 06/21/19 14:19 14:19 Hgb 10.5 L Hct 31.6 L MCH 26.9 L RDW 14.2 H Carbon Dioxide 33 H BUN 22 H Glucose 52 L Calcium 10.6 H Discharge - Discharge Clinical Impression: Ischemic necrosis of foot Condition: Stable Disposition: HOME, SELF-CARE Additional Instructions: FOLLOW-UP CARE: If you have been referred to a physician for follow-up care, call the physicians office for an appointment as you were instructed or within the next two days. If you experience worsening or a significant change in your symptoms, notify the physician immediately or return to the Emergency Department at any time for re-evaluation. Referrals: OANH HERNANDEZ MD [Primary Care Provider] - Follow up as needed
[2019-06-21 15:10] LABS: ABSOLUTE BASOPHILS # (AUTO) 0.1 10^3/uL (0.0-0.2); ABSOLUTE LYMPHOCYTES (AUTO) 2.3 10^3/uL (0.5-4.7); ABSOLUTE MONOCYTES (AUTO) 0.7 10^3/uL (0.1-1.4); ABSOLUTE NEUT (AUTO) 6.5 10^3/uL (1.7-8.2); BASOPHILS % (AUTO) 0.5 % (0-2); HEMATOCRIT 31.6 % (36.0-47.0); HEMOGLOBIN 10.5 g/dL (12.0-15.5); LYMPHOCYTES % (AUTO) 24.7 % (13-45); MEAN CORPUSCULAR HEMOGLOBIN 26.9 pg (27.0-33.4); MEAN CORPUSCULAR HGB CONC 33.2 g/dL (32.0-36.0); MEAN CORPUSCULAR VOLUME 81 fl (80-97); MONOCYTES % (AUTO) 6.9 % (3-13); PLATELET COUNT 380 10^3/uL (150-450); RED BLOOD COUNT 3.89 10^6/uL (3.72-5.28); RED CELL DISTRIBUTION WIDTH 14.2 % (11.5-14.0); SEGMENTED NEUTROPHILS % (AUTO) 67.9 % (42-78); TOTAL CELLS COUNTED % (AUTO) 100 %; WHITE BLOOD COUNT 9.5 10^3/uL (4.0-10.5)
[2019-06-21 15:11] LABS: ALBUMIN 3.6 g/dL (3.5-5.0); ALKALINE PHOSPHATASE 86 U/L (38-126); ANION GAP 10 (5-19); ASPARTATE AMINO TRANSFERASE 27 U/L (14-36); BILIRUBIN,DIRECT 0.3 mg/dL (0.0-0.4); BILIRUBIN,TOTAL 0.3 mg/dL (0.2-1.3); BLOOD UREA NITROGEN 22 mg/dL (7-20); CALCIUM 10.6 mg/dL (8.4-10.2); CARBON DIOXIDE 33 mmol/L (22-30); CHLORIDE 98 mmol/L (98-107); POTASSIUM 4.3 mmol/L (3.6-5.0); TOTAL PROTEIN 7.1 g/dL (6.3-8.2)
[2019-06-21 15:12] LABS: GLUCOSE 52 mg/dL (75-110)
[2019-06-21] MEDS ORDERED: LORAZEPAM INJ 2 MG/1 ML VIAL ONE (15:27)
--- NOTE | 2019-06-21 16:51 | PDOC CONSULTATION ---
Consultation Consult Date: 06/21/19 Provider Consulted: MESERET GONZALZE Consult reason:: Left foot gangrene History of Present Illness Admission Date/PCP: OANH HERNANDEZ MD History of Present Illness: CHARLEE CHING is a 73 year old female, vasculopathic, history of coronary artery disease, pedis, hypertension, myocardial infarction, peripheral vascular disease, status post right lower extremity vascular procedure as well as right BKA about 6 weeks ago with poor BKA skin healing, who has been brought to the emergency room after the [facility] personnel identified duskiness and the coldness of the left foot. The patient is disoriented by time, place, and person. This appears to be completely confused. According to the records and to the hospitalist who knows the patient well from the previous admission, her mental status is similar to before without any change or worsening. Currently, she has no complaints of cough, she denies any pain in the right lower extremity. Past Medical History Cardiac Medical History: Reports: Coronary Artery Disease, DVT, Myocardial Infarction, Hypertension, Peripheral Vascular Disease Denies: Hyperlipidema Pulmonary Medical History: Denies: Asthma Neurological Medical History: Denies: Seizures Endocrine Medical History: Reports: Diabetes Mellitus Type 2 Malignancy Medical History: Reports: Breast Cancer GI Medical History: Denies: Hepatitis, Hiatal Hernia Hematology: Denies: Anemia, Sickle Cell Disease Past Surgical History Past Surgical History: Reports: Coronary Stent, Mastectomy - RIGHT,RESTRICTED, Orthopedic Surgery - RIGHT bka, Vascular Surgery - lower extremities at [facility] Denies: Amputation, Hysterectomy, Pacemaker Social History Smoking Status: Unknown if Ever Smoked Frequency of Alcohol Use: None Hx Recreational Drug Use: No Drugs: None Hx Prescription Drug Abuse: No Family History Family History: Reviewed & Not Pertinent Parental Family History Reviewed: No Children Family History Reviewed: No Sibling(s) Family History Reviewed.: No Medication/Allergy Home Medications: Apixaban [Eliquis 5 mg Tablet] 5 mg PO Q12 05/18/19 Aspirin [Ecotrin 81 mg EC Tablet] 81 mg PO DAILY 05/18/19 Atorvastatin Calcium [Lipitor 40 mg Tablet] 40 mg PO QHS 05/18/19 Docusate Sodium [Colace 100 mg Capsule] 200 mg PO QHS 05/18/19 Glipizide [Glucotrol 10 mg Tablet] 10 mg PO DAILY 05/18/19 Insulin Aspart [Novolog Insulin (Aspart) 100 unit/mL] 8 units SQ MEALS 05/18/19 Insulin Glargine,Hum.rec.anlog [Lantus Insulin 100 Unit/1 ml 10 ml] 20 units SQ BID 05/18/19 Metformin HCl 850 mg PO BID 05/18/19 Pregabalin [Lyrica] 150 mg PO Q12 05/18/19 Amlodipine Besylate [Norvasc 5 mg Tablet] 5 mg PO DAILY tablet 05/31/19 Lisinopril [Prinivil 10 mg Tablet] 30 mg PO DAILY tablet 05/31/19 Oxycodone HCl/Acetaminophen [Percocet 5-325 mg Tablet] 1 tab PO Q4HP PRN #60 tablet 05/31/19 Sennosides/Docusate 8.6-50 mg [Senna Plus Tablet] 2 each PO QHS tablet 05/31/19 Simethicone [Mylicon 80 mg Chewable Tablet] 120 mg PO QIDP PRN tab.chew 05/31/19 Allergies/Adverse Reactions: No Known Allergies Allergy (Verified 06/21/19 14:25) Physical Exam Vital Signs: Temp Pulse Resp BP Pulse Ox 98.3 F 84 18 119/44 L 100 06/21/19 13:58 06/21/19 13:58 06/21/19 13:58 06/21/19 13:58 06/21/19 13:58 Intake & Output 06/20/19 06/21/19 06/22/19 06:59 06:59 06:59 Weight 66.224 kg General appearance: PRESENT: no acute distress, other - Patient is confused by place, time, and person, and situation Head exam: PRESENT: atraumatic Eye exam: PRESENT: EOMI Mouth exam: PRESENT: moist, neck supple, tongue midline Teeth exam: PRESENT: edentulous Neck exam: PRESENT: full ROM Respiratory exam: PRESENT: chest wall tenderness Cardiovascular exam: PRESENT: RRR GI/Abdominal exam: PRESENT: normal bowel sounds, soft Rectal exam: PRESENT: deferred Extremities exam: PRESENT: other - Right lower extremity: BKA, with poor healing of the leg flap anterior skin; left lower extremity: Coldness from just below t he knee down to the foot, blistering of the dorsal foot skin, necrosis with swelling of the second toe, no sensation, no palpable pulses, no motion of the toes or ankle Results Laboratory Results: 06/21/19 14:19 06/21/19 14:19 06/21/19 06/21/19 14:19 14:19 WBC 9.5 RBC 3.89 Hgb 10.5 L Hct 31.6 L MCV 81 MCH 26.9 L MCHC 33.2 RDW 14.2 H Plt Count 380 Seg Neutrophils % 67.9 Sodium 140.5 Potassium 4.3 Chloride 98 Carbon Dioxide 33 H Anion Gap 10 BUN 22 H Creatinine 0.67 Est GFR ( Amer) > 60 Glucose 52 L Calcium 10.6 H Total Bilirubin 0.3 AST 27 Alkaline Phosphatase 86 Total Protein 7.1 Albumin 3.6 Assessment & Plan - Diagnosis (1) necrosis left foot Is this a current diagnosis for this admission?: Yes (2) Dementia Is this a current diagnosis for this admission?: Yes - Plan Summary Plan Summary: Assessment: 73-year-old female, penitentiary resident, bedbound, with confusion x4 Status post right BKA 6 weeks ago with poor healing of the stump due to her vasculopathy Left foot gangrene with coldness of the left leg with the skin blistering and necrosis of the second toe Multiple medical issues including diabetes, hypertension, previous medical myocardial infarction, coronary artery disease, and status post failed right leg peripheral vascular procedure prior to right BKA Plan: The patient is not a surgical candidate because of her dementia and confusion x4 which would make her difficult patient to manage postoperatively In addition, the patient represents a severe surgical risk in terms of the possible and multiple complication which will occur to her should she undergo a below-knee amputation. Because of the above and in agreement with the hospitalist phone technician as well as Dr. Glaser with home I conferred over the phone after examining the patient, my recommendation is that this patient should not undergo any surgical procedure, be made comfort care only, and return to the penit[facility]iary. This decision, was communicated over the phone to her next of kin . Caleb Arredondo by the hospitalist phone technician Dr. Posada.
--- NOTE | 2019-06-21 16:51 | RADIOLOGY REPORT (SQ) ---
EXAM DESCRIPTION: FOOT LEFT COMPLETE COMPLETED DATE/TIME: 06/21/2019 4:34 pm REASON FOR STUDY: PAIN AND TURNING BLACK COMPARISON: None. NUMBER OF VIEWS: Three views. TECHNIQUE: AP, lateral and oblique radiographic images acquired of the left foot. LIMITATIONS: None. FINDINGS: MINERALIZATION: Normal. BONES: No acute fracture or dislocation. No worrisome bone lesions. JOINTS: No effusions. SOFT TISSUES: There is soft tissue swelling dorsally. No radiopaque foreign bodies. OTHER: No other significant finding. IMPRESSION: Soft tissue swelling dorsally. No radiopaque foreign bodies. TECHNICAL DOCUMENTATION: JOB ID: [id number] [employer]- All Rights Reserved Reading location - IP/workstation name: [email or web address]
--- NOTE | 2019-06-21 17:09 | PDOC CONSULTATION ---
Consultation Consult Date: 06/21/19 Attending physician:: SANDY JUAREZ Provider Consulted: KEN REDMOND Consult reason:: Left foot gangrene History of Present Illness Admission Date/PCP: OANH HERNANDEZ MD Patient complains of: Severe left foot pain and discoloration History of Present Illness: CHARLEE CHING is a 73 year old female with history of severe peripheral vascular disease, coronary artery disease, hypertension, history of heart attack, recent history of right BKA 2 weeks ago living in the long term brought to the ER here with complaints of increasing pain in the left lower leg associated with wounds on the left foot and the duskiness and coolness of the left foot. Patient is confused and disoriented at the time of examination in the ER. Medical consult was called to assess and help the surgeons in deciding comfort care measures only. Mental status is worsened compared to previous admissions. Past Medical History Cardiac Medical History: Reports: Coronary Artery Disease, DVT, Myocardial Infarction, Hypertension, Peripheral Vascular Disease Denies: Hyperlipidema Pulmonary Medical History: Denies: Asthma Neurological Medical History: Denies: Seizures Endocrine Medical History: Reports: Diabetes Mellitus Type 2 Malignancy Medical History: Reports: Breast Cancer GI Medical History: Denies: Hepatitis, Hiatal Hernia Hematology: Denies: Anemia, Sickle Cell Disease Past Surgical History Past Surgical History: Reports: Coronary Stent, Mastectomy - RIGHT,RESTRICTED, Orthopedic Surgery - RIGHT bka, Vascular Surgery - lower extremities at da Denies: Amputation, Hysterectomy, Pacemaker Social History Information Source: Emergency Med Personnel Lives with: Custodial Smoking Status: Unknown if Ever Smoked Frequency of Alcohol Use: None Hx Recreational Drug Use: No Drugs: None Hx Prescription Drug Abuse: No - Advance Directive Resuscitation Status: Full Code Family History Family History: Reviewed & Not Pertinent Parental Family History Reviewed: Yes - Lila history of heart disease. Children Family History Reviewed: Yes Sibling(s) Family History Reviewed.: Yes Medication/Allergy Home Medications: Apixaban [Eliquis 5 mg Tablet] 5 mg PO Q12 05/18/19 Aspirin [Ecotrin 81 mg EC Tablet] 81 mg PO DAILY 05/18/19 Atorvastatin Calcium [Lipitor 40 mg Tablet] 40 mg PO QHS 05/18/19 Docusate Sodium [Colace 100 mg Capsule] 200 mg PO QHS 05/18/19 Glipizide [Glucotrol 10 mg Tablet] 10 mg PO DAILY 05/18/19 Insulin Aspart [Novolog Insulin (Aspart) 100 unit/mL] 8 units SQ MEALS 05/18/19 Insulin Glargine,Hum.rec.anlog [Lantus Insulin 100 Unit/1 ml 10 ml] 20 units SQ BID 05/18/19 Metformin HCl 850 mg PO BID 05/18/19 Pregabalin [Lyrica] 150 mg PO Q12 05/18/19 Amlodipine Besylate [Norvasc 5 mg Tablet] 5 mg PO DAILY tablet 05/31/19 Lisinopril [Prinivil 10 mg Tablet] 30 mg PO DAILY tablet 05/31/19 Oxycodone HCl/Acetaminophen [Percocet 5-325 mg Tablet] 1 tab PO Q4HP PRN #60 tablet 05/31/19 Sennosides/Docusate 8.6-50 mg [Senna Plus Tablet] 2 each PO QHS tablet 05/31/19 Simethicone [Mylicon 80 mg Chewable Tablet] 120 mg PO QIDP PRN tab.chew 05/31/19 Allergies/Adverse Reactions: No Known Allergies Allergy (Verified 06/21/19 14:25) Review of Systems ROS unobtainable: Due to mental status Physical Exam Vital Signs: Temp Pulse Resp BP Pulse Ox 98.3 F 84 18 119/44 L 100 06/21/19 13:58 06/21/19 13:58 06/21/19 13:58 06/21/19 13:58 06/21/19 13:58 Intake & Output 06/20/19 06/21/19 06/22/19 06:59 06:59 06:59 Weight 66.224 kg General appearance: PRESENT: other - Moderate to severe distress, confused and agitated disoriented. Eye exam: PRESENT: PERRLA Mouth exam: PRESENT: neck supple Teeth exam: PRESENT: poor dentation Neck exam: ABSENT: carotid bruit, JVD, lymphadenopathy, thyromegaly Respiratory exam: PRESENT: clear to auscultation tom. ABSENT: rales, rhonchi, wheezes GI/Abdominal exam: PRESENT: normal bowel sounds, soft. ABSENT: distended, guarding, mass, organolmegaly, rebound, tenderness Rectal exam: PRESENT: deferred Extremities exam: PRESENT: other - Patient has a right BKA with poor healing, left lower leg is cold and clammy to touch peripheral pulses are not palpable, blistering of the dorsal aspect of the left foot associated necrosis and swelling of the second toe. Patient is unable to feel any sensations again no palpable pulses no motion of the toes and ankles present. Neurological exam: PRESENT: altered, other - Patient is confused not oriented to time place. Psychiatric exam: PRESENT: agitated, anxious Results Laboratory Results: 06/21/19 14:19 06/21/19 14:19 06/21/19 06/21/19 14:19 14:19 WBC 9.5 RBC 3.89 Hgb 10.5 L Hct 31.6 L MCV 81 MCH 26.9 L MCHC 33.2 RDW 14.2 H Plt Count 380 Seg Neutrophils % 67.9 Sodium 140.5 Potassium 4.3 Chloride 98 Carbon Dioxide 33 H Anion Gap 10 BUN 22 H Creatinine 0.67 Est GFR ( Amer) > 60 Glucose 52 L Calcium 10.6 H Total Bilirubin 0.3 AST 27 Alkaline Phosphatase 86 Total Protein 7.1 Albumin 3.6 Assessment and Plan - Diagnosis (1) Ischemic necrosis of foot Is this a current diagnosis for this admission?: Yes Plan: [id number]-old female with multiple medical problems including recent right BKA came in with ischemic necrosis of the left foot. Dr brown requested me to the pt in ER to concur with him that pt needs to be on comfort care and very poor surgical candidate. After consultation with ER physician Dr. Juarez and surgeon Dr. Masters agreed with comfort care measures only because of the overall poor prognosis and critical condition. Patient has a chronic medical conditions including diabetes mellitus hypertension, previous [place], coronary artery disease, status post failed right lower leg vascular process prior to right BKA. As per the surgical team patient is not a surgical candidate because of her advanced dementia and it is very difficult to manage postoperatively. as per surgical team pt is very high risk of perioperative complications and postoperative complications. Again the ER physician Dr. Juarez and Dr. Lowe and me agreed her to make comfort care measures only. Spoke to Arnulfo Theodore patient's next of kin explained to him in detail about the postop and perioperative complications and also explained to him that surgery think patient is a poor candidate for surgical procedure and our recommendation is comfort care measures only. Mr. Arnulfo Ellis agreed to make the patient comfort care only and also agreed for the patient to go back to the long term today. - Time Time Spent with patient: 25-34 minutes Medications reviewed and adjusted accordingly: Yes Anticipated discharge: SN[facility]
[2019-06-21 19:41] VITALS: BP 95/26
== END 2019-06-21 19:41 | disposition home or self-care (01) ==
LOC: ER 13:28
DX: E11.52 Type 2 diabetes mellitus with diabetic peripheral angiopathy with gangrene (principal); I96 Gangrene, not elsewhere classified; G89.18 Other acute postprocedural pain; I10 Essential (primary) hypertension; I25.10 Atherosclerotic heart disease of native coronary artery without angina pectoris; Z85.3 Personal history of malignant neoplasm of breast; Z89.511 Acquired absence of right leg below knee; Z86.718 Personal history of other venous thrombosis and embolism; I25.2 Old myocardial infarction
CPT/HCPCS: 99284; 96374; 36415; 87040; 82962; 85025; 80053; 73630; J2060